=== PATIENT | male | born 1950 | race Caucasian/White ===

== ENCOUNTER 2019-06-23 14:15 | Inpatient (IN) | payer OTHER, SELFPAY ==
[2019-06-08 10:04] VITALS: BMI 42.1
[2019-06-22] VITALS (16 sets, daily range): BP systolic 102–142; BP diastolic 40–85; PULSE 66–80; RESP 12–20; TEMP 35.8–36.8; O2SAT 93–100; BMI 42.0
--- NOTE | 2019-06-22 06:00 | DI.RAD.S_ITS ---
PROCEDURE: XR KNEE RT 1TO2V INDICATIONS: post op films TECHNIQUE: 2 view(s) of the knee acquired. COMPARISON: None. FINDINGS: Bones: Patient is status post knee joint arthroplasty. Hardware components are in expected positions. Visualized bony structures are intact. Soft tissues: Overlying postoperative changes are noted. IMPRESSION: Normal alignment after total knee arthroplasty involving the right knee, no operative complications seen. Dictated by: Rehan Toussaint M.D. on 06/22/2019 at 15:10 Approved by: Rehan Toussaint M.D. on 06/22/2019 at 15:10
[2019-06-22] MEDS: LACTATED RINGERS 1,000 ML 42 ML IV ×2 (11:00→13:40)
[2019-06-22] MEDS: ACETAMINOPHEN 325 MG TABLET 975 MG PO ×3 (11:26→20:54)
[2019-06-22] MEDS: PREGABALIN 75 MG CAPSULE PO (11:27)
--- NOTE | 2019-06-22 11:53 | PM.PREOP ---
Pre-operative Note Interval Note History & Physical reviewed/Exam performed by Physician: Yes Changes to H&P: No
[2019-06-22] MEDS: CEFAZOLIN 2 GM/100 ML FROZ.PIGGY IV (12:34)
[2019-06-22] MEDS: TRANEXAMIC ACID 1,000 MG VIAL 1000 MG INJ ×2 (13:04→13:58)
--- NOTE | 2019-06-22 13:06 | SUR.OPER ---
Supine on padded OR bed. Head on gel doughnut, arms secured on padded armboards <90 degree abduction. Safety belt across torso. Non-operative leg secured with tape over blanket over lower leg. Operative leg secured in DeMayo positioner. Foam padded brace at thigh of operative leg.
[2019-06-22] MEDS: BUPIVACAINE 0.25% W/ EPI 30 ML VIAL 60 ML INJ (13:12)
[2019-06-22] MEDS: BUPIVACAINE LIPOSOME 266 MG/20 ML VIAL INJ (13:12)
[2019-06-22] MEDS: MORPHINE 4 MG/ML INJ INJ (13:13)
--- NOTE | 2019-06-22 14:28 | P.OP_ITS ---
Operative Date/Time/Diagnoses Date of procedure: 06/22/19 Time of procedure: 14:15 Pre-op diagnosis: Right knee osteoarthritis Post-op diagnosis: same Procedure & Clinicians Procedure: Right total knee replacement Same procedure as scheduled: Yes Indications: The patient has had progressively worsening right knee pain with radiographic changes consistent with arthritis. Non-operative management has failed and the patient has requested total knee replacement. The risks, benefits and alternatives to surgery were discussed with the patient prior to proceeding. Risks discussed included, but were not limited to, failure to relieve pain, stiffness, infection, nerve damage, deep venous thrombosis, pulmonary embolism, stroke, coma, heart attack, permanent paralysis and , as well as the potential need for eventual revision of the prosthetic. Surgeon: Jose F Siu Chamber Magistrate: Kate Chapin Click Yes if Unassisted: No Anesthesia Type: Spinal, Sedation and Local Operative Notes Findings: Moderate patellofemoral osteoarthritis with mild medial and lateral osteoarthritis. Closure Type: primary Specimen(s): none sent Prosthetic devices, grafts, tissues, transplants, or devices: Implants used in this procedure were manufactured by the [employer] and [employer] and included the BCS II Journey total knee replacement with a size 5 right Oxinium femur, a size 4 right non porous tibial base plate, a 9 mm cross-linked polyethylene tibial insert and a 32 mm oval Stephanie II patella. Applied: implant(s) Estimated Blood Loss (mL): 25 Blood products transfused: none Tourniquet time (min): 53 Procedure in detail: The patient was seen in the pre-operative area, where the patient identified the right knee as the operative site and this was marked with my initials. The patient received pre-operative antibiotics, and was taken to the operating room and placed on the operative table in the supine position. After satisfactory anesthesia, a multimedia services manager out was performed. The right leg was encircled with a tourniquet about the proximal thigh, and the leg was prepared from the toes to the tourniquet with ChloroPrep in the usual fashion and draped through sterile drapes. The leg was elevated and exsanguinated with Eschmark bandage and the tourniquet inflated to 250 mmHg pressure. The knee was approached through an approximately 18 cm incision centered over the patella and carried into the knee through a medial parapatellar arthrotomy. The anterior osteophytes and soft tissues were removed. The rotational landmarks of Kimball's line and the transepicondylar axis were marked on the femur with electrocautery, and intramedullary guide holes for the femur and tibia were created. The distal femoral cut was made in 6 degrees of valgus using the intramedullary guide at the primary cut setting. The proximal tibial cut was then made using the intramedullary guide, taking 9 mm of bone off the less involved side. The extension gap was checked and the rotation of the femoral component confirmed with the gap balancing system. The anterior, posterior and chamfer cuts were then made. The posterior osteophytes and soft tissues were then removed. The posterior capsule was injected with part of a mixture of 60 ml 0.25% Marcaine mixed with 20 ml Exparel and 4 mg of morphine for post-operative pain control. The remainder of this mixture was injected into the capsule and subcutaneous tissues during cement curing. The tibia was prepared with the rotation set by an extra medullary guide. Trial tibial and femoral components were then placed and the intercondylar notch cut through the femoral trial. Range of motion was 0-135 degrees, with good stability throughout the range. The patella was then cut to accommodate the patellar prosthetic. There was no need for a lateral release. The trials were then removed, and the femoral hole plugged with a bone plug. The bone was prepared with pulsatile lavage, and dried with a sponge. Cement was applied and the final prosthetics placed. Excess cement was removed during and after cement curing. After confirming there was no extruded cement posteriorly, the final tibial insert was placed. The knee was copiously irrigated and the tourniquet deflated. Hemostasis was obtained. The capsule was closed with interrupted # 2 polyester suture. The subcutaneous layer was closed with 3-0 Vicryl, and the skin with a running 3-0 V-Lock suture and SteriStrips. An Aquacel Ag dressing was applied and the patient was taken to recovery having tolerated the procedure well. Complications: none Post-operative Condition: stable Disposition: PACU Plan for aftercare: The patient will be maintained on a standard total knee replacement protocol with weight bearing as tolerated. The patient will receive aspirin and sequential compression devices for DVT prophylaxis. The patient will be discharged home when safe for the home environment.
[2019-06-22] MEDS: HYDROMORPHONE 2 MG INJ IV (14:55)
[2019-06-22] MEDS: OXYCODONE IR 5 MG TABLET PO (15:17)
--- NOTE | 2019-06-22 15:55 | SUR.PHASEI ---
Pt transferred to room 221 via bed with all belongings. Last vital signs stable and pain to tolerable level per pt at 3/10 in mid/upper back; see vitals flowsheet for details. Report given to LORI Ray prior to transfer. Flor at bedside upon arrival to room 221; handoff assessment completed. Flor to assume care of pt at this time.
[2019-06-22] MEDS: hydrOXYzine pamoate 25 MG CAPSULE PO (16:39)
[2019-06-22] MEDS: OXYCODONE IR 10 MG TABLET PO ×2 (16:39→19:58)
[2019-06-22] MEDS: LACTATED RINGERS 1,000 ML 125 ML IV (16:40)
--- NOTE | 2019-06-22 19:01 | PC.NURSE ---
Addendum entered by Gladis Peña R.N. 06/22/19 22:11: Pt having pain control issues throughout evening. Med w/ Dilaudid 0.5IVP x 3 in between Oxycodone and vistaril as per orders. Pt states it is now beginning to get some relief. Dsg to right lower leg CDI. Call light w/in reach, bed alarm on for pt safety. Continue w/plan of care. Original Note: Pt arrived from PACu @ 1555 Alert/oriented. SpO2 98% RA Med w/oxycodone @ 1650 w/good relief. Right knee dsg (Felton wrap/aquacell) CDI Stable post op course. Call light w/in reach, bed alrm on for pt safety.
[2019-06-22] MEDS: HYDROMORPHONE 0.5 MG INJ IV ×3 (19:25→22:03)
[2019-06-22] MEDS: ASPIRIN EC 81 MG TABLET PO (20:55)
[2019-06-23] MEDS: OXYCODONE IR 10 MG TABLET PO ×5 (00:28→22:41)
[2019-06-23] MEDS: hydrOXYzine pamoate 25 MG CAPSULE PO ×4 (00:29→21:38)
[2019-06-23] MEDS: HYDROMORPHONE 0.5 MG INJ IV ×4 (00:29→15:30)
[2019-06-23] MEDS: LACTATED RINGERS 1,000 ML 125 ML IV (00:33)
--- NOTE | 2019-06-23 02:24 | PC.NURSE ---
Dr. Salazar notified at 0140 of pain level maintaining 7-10/10 on the numeric pain scale. Patient is stiff, restless and irritable. See MAR for pain medication administration. Orders received to give Toradol 30mg every six hours PRN.
[2019-06-23] MEDS: KETOROLAC 30 MG/ML VIAL IV ×3 (02:41→22:00)
[2019-06-23 06:16] LABS: Hematocrit 29.8 % (41-53); Hemoglobin 10.3 g/dL (13.5-17.5)
[2019-06-23 06:50] VITALS: BP 126/69; PULSE 75; RESP 16; TEMP 37.1; O2SAT 97
--- NOTE | 2019-06-23 07:34 | PM.PNPO.1 ---
Subjective Subjective Date Patient Seen: 06/23/19 Time Patient Seen: 07:34 Interval history: Patient reports he had significant pain control issues yesterday evening but these are now under control. Exam Vital Signs (past 8 hours): - 06/23/19 06:50 Temperature 98.7 F Pulse Rate 75 Respiratory Rate 16 Blood Pressure 126/69 Pulse Oximetry 97 Oxygen Delivery Method Room Air Oxygen Flow Rate 0 Narrative Exam Narrative: Right knee wound is dressed with no drainage on the bandage. Calf is soft. Light touch and motion are intact. Objective Labs Result Diagrams: 06/23/19 05:55 Labs: Laboratory Results - last 24 hr 06/23/19 05:55 Hgb 10.3 L Hct 29.8 L Assessment & Plan Post-op Postoperative Procedures: Procedures Operation Date: 06/22/19 12:45 Actual Procedures Side Surgeon p *OPB* Total Knee Arthroplasty Right Jose F Siu MD Postoperative day: 1 Postoperative status: doing well, marginal pain control and anemia Postoperative status narrative: The patient is stable postoperative day 1 after total knee replacement on the right. He had poor pain control yesterday but this seems to have improved. He did not have any physical therapy yesterday. He has a post hemorrhagic anemia. Postoperative plan: routine post-op care and ambulate Postoperative plan narrative: We will initiate physical therapy for the patient. He lives in a recreational vehicle and will need to be able to negotiate narrow hallways and a steep flight of stairs to get into the vehicle. It is unlikely he will be able to achieve these goals today in physical therapy. We will admit him and he will be discharged tomorrow or the next day depending on progress in physical therapy. Time Spent With Patient Time with patient: less than 15 minutes
[2019-06-23 08:15] VITALS: BP 124/63; PULSE 77; RESP 16; TEMP 37.2; O2SAT 97
[2019-06-23] MEDS: ACETAMINOPHEN 325 MG TABLET 975 MG PO ×3 (08:46→21:37)
[2019-06-23] MEDS: ATORVASTATIN 20 MG TABLET 40 MG PO (08:48)
[2019-06-23] MEDS: METFORMIN HCL 500 MG TABLET PO (08:48)
[2019-06-23 08:49] VITALS: BP 126/69; PULSE 75
[2019-06-23] MEDS: LISINOPRIL 20 MG TABLET PO (08:49)
[2019-06-23] MEDS: ALLOPURINOL 100 MG TABLET PO (08:49)
[2019-06-23] MEDS: hydroCHLOROthiazide 25 MG TABLET PO (08:50)
[2019-06-23] MEDS: ATENOLOL 50 MG TABLET PO (08:51)
[2019-06-23] MEDS: DOCUSATE 100 MG CAPSULE PO ×2 (08:51→21:39)
[2019-06-23] MEDS: ASPIRIN EC 81 MG TABLET PO ×2 (08:51→21:38)
--- NOTE | 2019-06-23 10:49 | CM.DANOTE ---
Addendum entered by Belkis Bhatt 06/23/19 14:40: Received notification from therapy that current recommendation is SNF. Therapy aware that it is highly unlikely that [facility] will approve for SNF on elective orthopedic surgery. Met with patient again today and he is aware. He reports feeling better this afternoon and capable of doing more with mobility. Notified patient that CM team would reassess tomorrow 06-24 after patient seen by therapy. Patient agreeable and reports that he would be unable to pay privately for room/board at SNF. Patient is open to HH if Orthopedics agreeable. P: CM team to reassess for d/c planning disposition on 06-24-19. Hopeful patient can return home with HH vs. outpatient therapy. LINETTE Betancourt Original Note: DCP/Assessment: Reviewed chart. Patient is a 68yr old male admitted to [facility] for right TKA performed on 06-22-[address] Siu. PCP is Dr. Huffman. Primary payor is [facility]. Met with patient explained CM/SW role. Patient alert and oriented during visit. Patient reports that he resides in RV with spouse. Patient reports having significant pain issues today. RN aware. Patient has 5 stairs to enter RV. Therapy evaluation currently pending. Patient does have outpatient therapy arranged through Physical Therapy. Patient plans to go 1x per week due to cost. Apparently, patient's out of pocket cost for outpatient therapy is $45.00. Patient does not anticipate any d/c planning needs. Patient has had several Orthopedic surgeries in the past and feels that he understands what is expected. P: Anticipate home when medically stable. CM team to continue to follow. LINETTE Betancourt Discharge Planning/Care Management CM Discharge Assessment Start: 06/23/19 10:46 Freq: Status: Active Protocol: Document 06/23/19 10:46 KJS (Rec: 06/23/19 10:49 KJS [id number]) Discharge Planning Assessment Assigned Mold Puller LINETTE Betancourt Contact Information Lon Jovel (spouse) Advance Directives? No Advance Directives on File No History Provided By Patient,Medical Record Prior Living Arrangements RV Household Members spouse Type of transporation used prior to Drives own vehicle admit Independent with ADL's Therapy evaluation pending Is patient alert and oriented? Yes Caregiver for Another No DME Already Rented / Owned FWW / Walker Patient/Family Preference OP PT Therapy Barriers to Discharge No Discharge Plan Home Transportation Arrangement [facility] to provide transport. Whiteboard Updated in Patient Room with Yes name and ext. # of Mold Puller Review Status In Process Next Review Type Continued Stay Review Pre-Anesthesia Assessment Start: 06/08/19 10:04 Freq: Status: Active Protocol: Document 06/08/19 10:04 CAB (Rec: 06/08/19 10:38 CAB [id number]) Pre-Anesthesia Assessment PAC Comment Creatinine 1.96, eGFR 34 on pre-op labs. Prior labs scanned to record for review. PCP aware of labs, has cleared pt for surgery Preferred Name Nandini Patient Information Reviewed Via Phone Assessment Assessment Completed With Patient Diagnostic Results BMP/CMP,CBC,EKG,Urinalysis Comment Outside EKG/labs scanned to record Primary Care Provider Donnie Huffman Medical Clearance Received Yes Seen Specialist in Last 12 Months Yes Specialist Seen Opthamologist/Columnist, Orthopedist Comment PCP aware of pre-op labs, clearance visit scanned to record Primary Language Luxembourgish Ad Trafficker Required No Height 172.72 cm Weight 125.645 kg Body Mass Index (BMI) 42.1 Hearing Ability Normal Visual Assist Glasses Dentition Type Teeth, Natural Present,Partial - Upper Barriers to Learning None Other Aids No Hx Anesthesia Reactions No Hx Family Anesthesia Reaction No Hx Malignant Hyperthermia No Hx Blood Transfusions No Anesthesia Review Requested No alcohol intake current alcohol intake frequency holidays/special occasions only Smoking Status Former smoker how long ago did patient quit smoking Quit 2009 Substance Use Type does not use Pain Present Pain Reported Musculoskeletal Symptoms Abnormal Gait,Back Pain, Difficulty Walking,Joint Pain, Muscle Cramps,Numbness, Radiating Pain into Limb History of Falling (Recent or History of No ) Patient is completely paralyzed or No completely immobile Prosthesis or Orthotic Device Cane Mental Status Oriented to own ability Is patient on oxygen? No Does patient have AMEZQUITA/SOB No Hx Sleep Apnea No Currently Taking a Beta Yesi Yes: Atenolol Can You Climb a Flight of Stairs Without Yes SOB Hx Chest Pain No Hx SOB No Hx Syncope or Dizziness No Anti-Coagulant Therapy No Has a Explosives Operator No Cardiac Testing No Hx Pacemaker/ICD No Pacemaker Rep Required? No Diet Type At Home Regular,Low Carb dysphagia No Genitourinary Symptoms Dribbling, Post-void Bladder Pattern Frequency,Nocturia,Urgency Urinary Catheter Present No Hx Urinary Self Catheterization No Diabetes No: Takes metformin for weight loss per pt HgbA1C 5.5 Date 06/10/19 Hx Drug Resistant Organism No Presence of External or Internal Medical Yes: Lumbar hardware, left eye Devices lens Have you traveled outside the [facility] in the last 30 days? Marital Status Lives With spouse Prior Living Arrangements RV Support System Spouse Does the Patient Have Assistance After Yes Surgery Patient Discharge Plan Description Return Home Comment Pt not advised on length of stay per surgeon Feels Safe in Current Environment Yes Been Physically Hurt or Threatened By a No Person in Current Environment Do you have thoughts of harming yourself None or others? Are you currently considering suicide? No Do you have a plan to hurt yourself or No Plan others? Do You Have Any Spiritual Beliefs That No May Affect Your HC Choices? Do You Have Any Cultural Practices That No May Affect Your HC Choices? Who Can We Speak to About Patient's Care Family, friends Identifying Code for Release of Patient Declines to issue Information Health Care Proxy/Next of Kin [place] () Health Care Proxy Emergency Contact Name Angeles () Emergency Contact Advance Directives? Yes Advance Directives on File No Requested Patient Bring Advanced Yes Directives DOS Power of Tube Worker No PAC Instructions Durable medical equipment, Medications to take/avoid, Nasal antibiotic,No ETOH/ petroleum product on skin DOS, NPO,Pre-surgical wash,Sturdy shoes/comfortable clothes,Do not bring valuables and remove jewelry
--- NOTE | 2019-06-23 12:00 | PT.IIE ---
Current Diagnoses Other chondrocalcinosis, unspecified site (06/23/19) Unilateral primary osteoarthritis, right knee (06/23/19) Surgery Performed Operation Date: 06/22/19 12:45 Actual Procedures p *OPB* Total Knee Arthroplasty(Right) - Jose F Siu MD Surgical History (Last Updated 06/08/19 @ 10:24 by Jodi Moran RN) Hx of arthroscopy of left knee (Acute) Hx of arthroscopy of right knee (Acute ~2006) Hx of hernia repair (Acute) Hx of knee surgery (Acute ~1968) Hx of laminectomy (Acute ~2007) Hx of laminectomy (Acute ~2012) Hx of prostatectomy (Acute ~2014) Hx of tonsillectomy (Acute) S/P lumbar fusion (Acute ~2009) Status post extracapsular cataract extraction of left eye (Acute) Medical History (Last Updated 06/17/19 @ 12:17 by Jodi Moran RN) Asthma (Acute) Depression (Acute ~2007) Former smoker (Acute) Gout (Acute) HLD (hyperlipidemia) (Acute) HTN (hypertension) (Acute) Numbness (Acute) Prostate cancer (Acute ~2014) Stage III chronic kidney disease (Acute) Physical Therapy Inpatient Evaluation/Re-Eval M1 PT/OT-IP Prior Functional Status Start: 06/23/19 10:34 Freq: NEEDED Status: Active Protocol: Document 06/23/19 12:23 AW (Rec: 06/23/19 12:51 AW [id number]) Medical Review Prior Functional Status Medical History Reviewed Yes Diet/Fluid Consistency Regular Communication WNL Mobility and Gait Before January, pt was independent without need for assistive device. Since that time, pt ambulated household distances with no assistive device, but relied on a SPC for short community distances. He was limited in distance due to knee pain and back pain . Activities of Daily Living and IADL's Independent Prior Functional Level (Other details) No falls in the past two years . Social History Household Members spouse Living Arrangements RV Number of Floors (Floors) One Floor Number of Stairs To Enter/Railing? 5 ARTEMIO with bilateral rails. Stairs are 16 deep, 2.5' wide , and standard height. Home Environment Standard Height Toilet,Walk in Shower Home Equipment Straight Cane,Raised Toilet Seat Without Armrests Employment Status Retired Additional Social History Comment Pt states his RV hallways are too narrow for a walker. He has trialed his own hemiwalker in the halls and found that it fit everywhere he needed to go. He is accustomed to sleeping in a recliner M2 PT-IP Current Condition Start: 06/23/19 10:34 Freq: NEEDED Status: Active Protocol: Document 06/23/19 12:23 AW (Rec: 06/23/19 12:51 AW [id number]) Physical Therapy Current Condition Current Condition Evaluation Date 06/23/19 Treatment Diagnosis R TKA, impaired mobility Onset Date 06/22/19 Weight Bearing Status Weight Bearing Status Weight Bear as Tolerated M3 PT-IP Subjective Start: 06/23/19 10:34 Freq: NEEDED Status: Active Protocol: Document 06/24/19 10:30 HH (Rec: 06/24/19 11:41 HH [id number]) Subjective Physical Therapy Visit Type Type Treatment Note Visit Start Time 10:30 Visit Stop Time 10:52 Total Visit Minutes 22 Number of SLOT FLOOR ATTENDANT Visits 0 Physical Therapy Visit Comments Patient Comments I feel better today with less pain. I want to try walking. Therapy Pain Assessment Pain When Pain Assessed During Mobility Location lower back Intensity 5 Scale Used Numeric (1 - 10) Description Sharp r knee Intensity 3 Scale Used Numeric (1 - 10) Pain Behaviors Facial Grimacing,Holding Area, Wincing Pain Management Techniques Apply Cold,Re-positioning, Timing of Activity with Medications M4 PT-IP Mobility and Gait Start: 06/23/19 10:34 Freq: NEEDED Status: Active Protocol: Document 06/24/19 10:30 HH (Rec: 06/24/19 11:41 [id number]) PT-Bed Mobility Assessment Supine to Sit Supine to Sit Moderate Assistance,1 Person Assistance,Head of Bed Elevated,Bedrails Scooting Scooting to Edge of Bed Contact Guard Assistance PT-Transfer Assessment Sit to and From Stand Sit to and from Stand Minimal Assistance,1 Person Assistance,Use of Upper Extremities Equipment Transfer Assistive Device Gait Belt,Front Wheeled Walker Transfers Transfer Destination Bed,Chair Transfer Technique pt ambulated with FWW Transfer Ability Level of Assist Contact Guard Assistance Comments Mobility Comments Pt cont verbalized sharp pain with AROM/AAROM of R Knee ( only able to reach 70 degrees) . He cont needed increased time for supine to sit by using L ankle to unweight his RLE. Pt did need ADOBE CQ DEVELOPER from PT to get to edge of bed. He stood up with min A and FWW with a staggered stance position. Pt primarily WB through his UEs and LLE, increased pain noticed with weight shift to R side. Pt did sit <> stand x 3times and stand step pivot transfer with walk in total but they all needed min A due to his pain and poor LLE strength. Gait Assessment Gait Gait Assistance Required: Contact Guard Assist Distance (Feet) 12 Able to Maintain Weight Bearing Status Yes During Gait Assistive Devices Assistive Device Gait Belt,Front Wheeled Walker Gait Deviations General Gait Pattern Antalgic,Decreased Stride Length,Decreased Feet Clearance,Step-to Gait Factors Limiting Gait Function Factors Limiting Gait Function Decreased Activity Tolerance, Decreased Strength,Limited Range of Motion,Pain Comments Gait Comments Pt amb with a step to gait from bed to hallway with w/c follow. Pt primarily WB through UEs and LLE due to increased pain in R knee. Pt had to sit in w/c for rest after 10 feet for 5 mins. He was then w/c back to side of his chair and did stnad step pivot transfer. Pt reports his L knee is weak, along with his chronic LBP that limits his activity tolerance and mobility. Stair Climbing Assessment Comments Stair Climbing Comments Not assessed today. I cant do it now for sure. PT-Balance Assessment Sitting Balance and Reactions Static Sitting Balance Ability Good Dynamic Sitting Balance Ability Good Standing Balance and Reactions Static Standing Balance Ability Fair Dynamic Standing Balance Ability Fair Device Used FWW M5 PT-IP Objective Assessments Start: 06/23/19 10:34 Freq: NEEDED Status: Active Protocol: Document 06/23/19 12:23 AW (Rec: 06/23/19 12:51 AW [id number]) Orientation Orientation/Cognition Level of Alertness Alert Orientation Name,Day of Week,Place, Situation Language Function Ability No Deficits Noted Safety Awareness Understands Safety Issues Memory Description No Deficits Noted Gross Range of Motion Upper Extremity ROM Assessment Within Functional Limits Lower Extremity ROM Assessment Right Impaired Strength Upper Extremity Strength Assessment Within Functional Limits Lower Extremity Strength Assessment Right Impaired Comments Strength Comments BUE and LLE 4+/5 grossly Sensation Assessment Sensation Gross Sensation WNL M6 PT-IP Treatment Start: 06/23/19 10:34 Freq: NEEDED Status: Active Protocol: Document 06/23/19 12:25 LYN (Rec: 11/26/19 14:47 LYN [id number]) Physical Therapy Treatment Exercises Exercises Ankle Pumps,Quad Sets,Seated Knee Flexion/Extension Education Education Provided Post-Op Packet,Safety Other Treatments Other Treatment Performed Review post- op ex, knee flexion ROM to improve gait quality. M7 PT-IP Assessment and Plan Start: 06/23/19 10:34 Freq: NEEDED Status: Active Protocol: Document 06/24/19 10:30 HH (Rec: 06/24/19 11:41 HH [id number]) PT Summary Assessment and Plan Potential Rehabilitation Potential Good Status of Condition at Evaluation Evolving Summary Impairments Pain,ROM,Strength,Bed Mobility ,Transfers,Gait,Activity Tolerance Assessment Summary Pt did not show improvements today who stated he is primarily limited by his chronic LBP and B knee pain. Pt was able to amb ~12 feet with w/c follow. Pt reports he is not ready to go home, especially he has 5 steps to negotiate into RV and narrow hallway/bathroom. Communicated with SW regarding pt's current condition and limitation for home environment and spouse's limited assistance which creates significant fall risks for further injury. cont recommend SNF as an ideal option to improve his mobility and strength. Goals Bed Mobility Goal Standby Assistance Transfer Goal Standby Assistance,Front Wheeled Walker Gait Goal Standby Assistance,Simone Walker Gait Distance 75 Other Goals up/down 5 steps with bilateral rails SBA. Days to Meet Goals 5 Frequency of Treatment Frequency Of Treatment Twice a Day Treatment Plan Physical Therapy Treatment Plan Bed Mobility Training,Transfer Training,Gait Training, Therapeutic Exercise,Balance Retraining,Post Op Education, Discharge Planning,Hot or Cold Pack,Neuromuscular Re-ed, Coordination Retraining,Manual Therapy Other Recommendations and Next Treatment Review exercises, progress Focus gait distance, trial stairs. Coordinate timing of treatment with pain meds. Recommendations To Nursing Amount of Assist Needed 1 Person Assist,2 Person Assist Discharge Recommendations PT Discharge Recommendations Home with Assistance,Home Health,SNF Rehab Other Discharge Recommendations SNF vs home with assist and Equipment Needed for Home Before raised toilet seat Discharge
--- NOTE | 2019-06-23 12:00 | PT.IIE ---
Current Diagnoses Other chondrocalcinosis, unspecified site (06/23/19) Unilateral primary osteoarthritis, right knee (06/23/19) Surgery Performed Operation Date: 06/22/19 12:45 Actual Procedures p *OPB* Total Knee Arthroplasty(Right) - Jose F Siu MD Surgical History (Last Updated 06/08/19 @ 10:24 by Jodi Moran RN) Hx of arthroscopy of left knee (Acute) Hx of arthroscopy of right knee (Acute ~2006) Hx of hernia repair (Acute) Hx of knee surgery (Acute ~1968) Hx of laminectomy (Acute ~2007) Hx of laminectomy (Acute ~2012) Hx of prostatectomy (Acute ~2014) Hx of tonsillectomy (Acute) S/P lumbar fusion (Acute ~2009) Status post extracapsular cataract extraction of left eye (Acute) Medical History (Last Updated 06/17/19 @ 12:17 by Joid Moran RN) Asthma (Acute) Depression (Acute ~2007) Former smoker (Acute) Gout (Acute) HLD (hyperlipidemia) (Acute) HTN (hypertension) (Acute) Numbness (Acute) Prostate cancer (Acute ~2014) Stage III chronic kidney disease (Acute) Physical Therapy Inpatient Evaluation/Re-Eval M1 PT/OT-IP Prior Functional Status Start: 06/23/19 10:34 Freq: NEEDED Status: Active Protocol: Document 06/24/19 12:09 AW (Rec: 06/23/19 12:51 AW [id number]) Medical Review Prior Functional Status Medical History Reviewed Yes Diet/Fluid Consistency Regular Communication WNL Mobility and Gait Before January, pt was independent without need for assistive device. Since that time, pt ambulated household distances with no assistive device, but relied on a SPC for short community distances. He was limited in distance due to knee pain and back pain . Activities of Daily Living and IADL's Independent Prior Functional Level (Other details) No falls in the past two years . Social History Household Members spouse Living Arrangements RV Number of Floors (Floors) One Floor Number of Stairs To Enter/Railing? 5 ARTEMIO with bilateral rails. Stairs are 16 deep, 2.5' wide , and standard height. Home Environment Standard Height Toilet,Walk in Shower Home Equipment Straight Cane,Raised Toilet Seat Without Armrests Employment Status Retired Additional Social History Comment Pt states his RV hallways are too narrow for a walker. He has trialed his own hemiwalker in the halls and found that it fit everywhere he needed to go. He is accustomed to sleeping in a recliner M2 PT-IP Current Condition Start: 06/23/19 10:34 Freq: NEEDED Status: Active Protocol: Document 06/24/19 12:09 AW (Rec: 06/23/19 12:51 AW [id number]) Physical Therapy Current Condition Current Condition Evaluation Date 06/23/19 Treatment Diagnosis R TKA, impaired mobility Onset Date 06/22/19 Weight Bearing Status Weight Bearing Status Weight Bear as Tolerated M3 PT-IP Subjective Start: 06/23/19 10:34 Freq: NEEDED Status: Active Protocol: Document 06/24/19 12:09 AW (Rec: 06/23/19 12:51 AW [id number]) Subjective Physical Therapy Visit Type Type Initial Evaluation Visit Start Time 11:32 Visit Stop Time 12:12 Total Visit Minutes 40 Number of SERVICE ENGINE REPAIRER Visits 0 Physical Therapy Visit Comments Patient Comments Pt has highly irritable pain symptoms but is willing to attempt mobility with PT Patient Goals Pt hopes to go home at discharge Therapy Pain Assessment Pain When Pain Assessed During Mobility Pain Present Pain Present Pain Reported Location r knee Intensity 8 Scale Used 1/10 at rest; 8/10 with all mobility Pain Behaviors Facial Grimacing,Guarding, Moaning,Wincing Pain Management Techniques Apply Cold,Re-positioning, Timing of Activity with Medications M4 PT-IP Mobility and Gait Start: 06/23/19 10:34 Freq: NEEDED Status: Active Protocol: Document 06/24/19 12:09 AW (Rec: 06/23/19 12:51 AW [id number]) PT-Bed Mobility Assessment Supine to Sit Supine to Sit Moderate Assistance,1 Person Assistance,Head of Bed Elevated,Bedrails Scooting Scooting to Edge of Bed Minimal Assistance PT-Transfer Assessment Sit to and From Stand Sit to and from Stand Moderate Assistance,1 Person Assistance,Use of Upper Extremities Equipment Transfer Assistive Device Gait Belt,Front Wheeled Walker Transfers Transfer Destination Chair Transfer Technique pt ambulated with FWW Transfer Ability Level of Assist Contact Guard Assistance Comments Mobility Comments Pt reports increase in pain from 1/10 at rest to 8/10 with bed mobility. He was able to swing both legs to EOB and experienced spasm of right distal quadriceps with knee flexion. Pt was able to rest in reclined position long enough for spasm to calm down. He required mod assist and increased time to achieve seated position EOB. Pt completed sit to stand with mod assist and cues for sequencing. Transfer to chair required CGA with pt demonstrating poor eccentric control. Gait Assessment Gait Gait Assistance Required: Contact Guard Assist Distance (Feet) 3 Able to Maintain Weight Bearing Status Yes During Gait Assistive Devices Assistive Device Gait Belt,Front Wheeled Walker Gait Deviations General Gait Pattern Antalgic,Decreased Stride Length,Decreased Feet Clearance,Step-to Gait Factors Limiting Gait Function Factors Limiting Gait Function Decreased Activity Tolerance, Decreased Strength,Limited Range of Motion,Pain Comments Gait Comments Pt ambulated 3 feet from bed to chair with FWW CGA. Gait was notable for severely limited step length and foot clearance. Stair Climbing Assessment Comments Stair Climbing Comments Not assessed. PT-Balance Assessment Sitting Balance and Reactions Static Sitting Balance Ability Good Dynamic Sitting Balance Ability Good Standing Balance and Reactions Static Standing Balance Ability Fair Dynamic Standing Balance Ability Fair Device Used FWW M5 PT-IP Objective Assessments Start: 06/23/19 10:34 Freq: NEEDED Status: Active Protocol: Document 06/24/19 12:09 AW (Rec: 06/23/19 12:51 AW [id number]) Orientation Orientation/Cognition Level of Alertness Alert Orientation Name,Day of Week,Place, Situation Language Function Ability No Deficits Noted Safety Awareness Understands Safety Issues Memory Description No Deficits Noted Gross Range of Motion Upper Extremity ROM Assessment Within Functional Limits Lower Extremity ROM Assessment Right Impaired Strength Upper Extremity Strength Assessment Within Functional Limits Lower Extremity Strength Assessment Right Impaired Comments Strength Comments BUE and LLE 4+/5 grossly Sensation Assessment Sensation Gross Sensation WNL M6 PT-IP Treatment Start: 06/23/19 10:34 Freq: NEEDED Status: Active Protocol: Document 06/24/19 12:09 AW (Rec: 06/23/19 12:51 AW [id number]) Physical Therapy Treatment Exercises Exercises Ankle Pumps,Quad Sets,Heel Slides,Passive Knee Extension Hang Education Education Provided Precautions,Weight Bearing Status,Post-Op Packet,Safety Other Treatments Other Treatment Performed Pt unable to flex knee >10 degrees due to pain. Reviewed PT plan of care, post-op exercises, weightbearing status, and safe use of FWW. M7 PT-IP Assessment and Plan Start: 06/23/19 10:34 Freq: NEEDED Status: Active Protocol: Document 06/24/19 12:09 AW (Rec: 06/23/19 12:51 AW [id number]) PT Summary Assessment and Plan Potential Rehabilitation Potential Good Status of Condition at Evaluation Evolving Summary Impairments Pain,ROM,Strength,Bed Mobility ,Transfers,Gait,Activity Tolerance Assessment Summary Pt is a 68 yo man seen for PT evaluation on POD1 following R TKA. PLOF: Pt was independent in all regards prior to January 2019. Since then, he has used a single point cane for short distance community mobility. CLOF: Pt required mod assist for bed mobility with HOB elevated and sit to stand. He does not sleep in a bed at home. Ambulation of 3 feet and transfer to chair required CGA and increased time. Pt exhibits greatly increased pain with all mobility and poor activity tolerance. Will continue to assess, but at this time PT recommends consideration of SNF for short term rehab stay before return to home. He is unable to use a FWW at home due to narrow hallways, so will need to use a hemiwalker or similar unilateral device. He is unsafe to use a hemiwalker at this time. In addition, pt's is limited by poor shoulder range of motion and back pain; she is unable to provide meaningful physical assist. Goals Bed Mobility Goal Standby Assistance Transfer Goal Standby Assistance,Front Wheeled Walker Gait Goal Standby Assistance,Simone Walker Gait Distance 75 Other Goals up/down 5 steps with bilateral rails SBA. Days to Meet Goals 5 Frequency of Treatment Frequency Of Treatment Twice a Day Treatment Plan Physical Therapy Treatment Plan Bed Mobility Training,Transfer Training,Gait Training, Therapeutic Exercise,Balance Retraining,Post Op Education, Discharge Planning,Hot or Cold Pack,Neuromuscular Re-ed, Coordination Retraining,Manual Therapy Other Recommendations and Next Treatment Review exercises, progress Focus gait distance, trial stairs. Coordianate timing of treatment with pain meds Recommendations To Nursing Amount of Assist Needed 1 Person Assist,2 Person Assist Discharge Recommendations PT Discharge Recommendations Home with Assistance,Home Health,SNF Rehab Other Discharge Recommendations SNF vs home with assist and HH Time incorrect due to note pulled over incorrectly.
--- NOTE | 2019-06-23 12:43 | PT.IPTN ---
Current Diagnoses Other chondrocalcinosis, unspecified site (06/22/19) Unilateral primary osteoarthritis, right knee (06/22/19) Surgery Performed Operation Date: 06/22/19 12:45 Actual Procedures p *OPB* Total Knee Arthroplasty(Right) - Jose F Siu MD Physical Therapy Treatment Note M2 PT-IP Current Condition Start: 06/23/19 10:34 Freq: NEEDED Status: Active Protocol: Document 06/23/19 12:23 AW (Rec: 06/23/19 12:51 AW [id number]) Physical Therapy Current Condition Current Condition Evaluation Date 06/23/19 Treatment Diagnosis R TKA, impaired mobility Onset Date 06/22/19 Weight Bearing Status Weight Bearing Status Weight Bear as Tolerated M3 PT-IP Subjective Start: 06/23/19 10:34 Freq: NEEDED Status: Active Protocol: Document 06/23/19 12:25 LYN (Rec: 06/23/19 14:47 LYN [email or web address]) Subjective Physical Therapy Visit Type Type Treatment Note Visit Start Time 12:25 Visit Stop Time 12:43 Total Visit Minutes 18 Notes Treatment supervised by LINDA Barkley. Number of GRITTING MACHINE OPERATOR Visits 1 Physical Therapy Visit Comments Patient Comments Pt is willing to work with therapy. Therapy Pain Assessment Pain When Pain Assessed During Mobility Pain Present Pain Present Pain Reported Location r knee Intensity 4 Scale Used Numeric (1 - 10) Pain Behaviors Facial Grimacing,Holding Area, Wincing Pain Management Techniques Apply Cold,Re-positioning, Timing of Activity with Medications M4 PT-IP Mobility and Gait Start: 06/23/19 10:34 Freq: NEEDED Status: Active Protocol: Document 06/23/19 12:25 LYN (Rec: 06/23/19 14:47 LYN [id number]) PT-Bed Mobility Assessment Sit to Supine Sit to Supine Minimal Assistance,1 Person Assistance Scooting Scooting to Edge of Bed Contact Guard Assistance PT-Transfer Assessment Sit to and From Stand Sit to and from Stand Minimal Assistance,1 Person Assistance,Use of Upper Extremities Equipment Transfer Assistive Device Gait Belt,Front Wheeled Walker Transfers Transfer Destination Bed Transfer Technique pt ambulated with FWW Transfer Ability Level of Assist Contact Guard Assistance Comments Mobility Comments Pt verbalized stabbing pain when performing AAROM of R knee. Able to tolerate ankle pumps and quad sets. Pt scooted to edge of chair CGA. Sit<>stand w/ FWW Min A x1. Stand<>sit required cues to reach back for bed and keep R LE straight. Instructed pt how to use gait belt to self assist R LE back into bed. Min A for LE assistance sit<>sup. Pt left in bed w/ all needs in reach. Gait Assessment Gait Gait Assistance Required: Contact Guard Assist Distance (Feet) 12 Able to Maintain Weight Bearing Status Yes During Gait Assistive Devices Assistive Device Gait Belt,Front Wheeled Walker Gait Deviations General Gait Pattern Antalgic,Decreased Stride Length,Decreased Feet Clearance,Step-to Gait Factors Limiting Gait Function Factors Limiting Gait Function Decreased Activity Tolerance, Decreased Strength,Limited Range of Motion,Pain Comments Gait Comments Pt was able to ambulate from chair to other side of bed with Min A and proper use of FWW. Encouraged pt to bend R knee and use heel to toe step sequencing. Pt had decreased ROM due to pain and inflammation. Stair Climbing Assessment Comments Stair Climbing Comments Not assessed today but complete future appt. PT-Balance Assessment Sitting Balance and Reactions Static Sitting Balance Ability Good Dynamic Sitting Balance Ability Good Standing Balance and Reactions Static Standing Balance Ability Fair Dynamic Standing Balance Ability Fair Device Used FWW M5 PT-IP Objective Assessments Start: 06/23/19 10:34 Freq: NEEDED Status: Active Protocol: Document 06/23/19 12:23 AW (Rec: 06/23/19 12:51 AW [id number]) Orientation Orientation/Cognition Level of Alertness Alert Orientation Name,Day of Week,Place, Situation Language Function Ability No Deficits Noted Safety Awareness Understands Safety Issues Memory Description No Deficits Noted Gross Range of Motion Upper Extremity ROM Assessment Within Functional Limits Lower Extremity ROM Assessment Right Impaired Strength Upper Extremity Strength Assessment Within Functional Limits Lower Extremity Strength Assessment Right Impaired Comments Strength Comments BUE and LLE 4+/5 grossly Sensation Assessment Sensation Gross Sensation WNL M6 PT-IP Treatment Start: 06/23/19 10:34 Freq: NEEDED Status: Active Protocol: Document 06/23/19 12:25 LYN (Rec: 06/23/19 14:47 LYN [email or web address]) Physical Therapy Treatment Exercises Exercises Ankle Pumps,Quad Sets,Seated Knee Flexion/Extension Education Education Provided Post-Op Packet,Safety Other Treatments Other Treatment Performed Review post- op ex, knee flexion ROM to improve gait quality. M7 PT-IP Assessment and Plan Start: 06/23/19 10:34 Freq: NEEDED Status: Active Protocol: Document 06/23/19 12:25 LYN (Rec: 06/23/19 14:47 LYN [email or web address]) PT Summary Assessment and Plan Potential Rehabilitation Potential Good Status of Condition at Evaluation Evolving Summary Impairments Pain,ROM,Strength,Bed Mobility ,Transfers,Gait,Activity Tolerance Assessment Summary Pt showed improvements with mobility and ambulation this afternoon. Verbalized pain during AAROM of R knee, but was able to tolerate ankle pumps, quad sets, and ambulating to other side of bed w/ FWW. Cues to reach back for surface and slowly lower down before sitting as well as R knee bend and heel to toe walking during ambulation. Ambulated ~12 ft w/ FWW and CGA. CGA for scooting, Min A for sit<>stand and sit<>supine . Goals Bed Mobility Goal Standby Assistance Transfer Goal Standby Assistance,Front Wheeled Walker Gait Goal Standby Assistance,Simone Walker Gait Distance 75 Other Goals up/down 5 steps with bilateral rails SBA. Days to Meet Goals 5 Frequency of Treatment Frequency Of Treatment Twice a Day Treatment Plan Physical Therapy Treatment Plan Bed Mobility Training,Transfer Training,Gait Training, Therapeutic Exercise,Balance Retraining,Post Op Education, Discharge Planning,Hot or Cold Pack,Neuromuscular Re-ed, Coordination Retraining,Manual Therapy Other Recommendations and Next Treatment Review exercises, progress Focus gait distance, trial stairs. Coordinate timing of treatment with pain meds. Recommendations To Nursing Amount of Assist Needed 1 Person Assist,2 Person Assist Discharge Recommendations PT Discharge Recommendations Home with Assistance,Home Health,SNF Rehab Other Discharge Recommendations SNF vs home with assist and
--- NOTE | 2019-06-23 12:51 | PT.IIE ---
Current Diagnoses Other chondrocalcinosis, unspecified site (06/22/19) Unilateral primary osteoarthritis, right knee (06/22/19) Surgery Performed Operation Date: 06/22/19 12:45 Actual Procedures p *OPB* Total Knee Arthroplasty(Right) - Jose F Siu MD Surgical History (Last Updated 06/08/19 @ 10:24 by Jodi Moran RN) Hx of arthroscopy of left knee (Acute) Hx of arthroscopy of right knee (Acute ~2006) Hx of hernia repair (Acute) Hx of knee surgery (Acute ~1968) Hx of laminectomy (Acute ~2007) Hx of laminectomy (Acute ~2012) Hx of prostatectomy (Acute ~2014) Hx of tonsillectomy (Acute) S/P lumbar fusion (Acute ~2009) Status post extracapsular cataract extraction of left eye (Acute) Medical History (Last Updated 06/17/19 @ 12:17 by Jodi Moran RN) Asthma (Acute) Depression (Acute ~2007) Former smoker (Acute) Gout (Acute) HLD (hyperlipidemia) (Acute) HTN (hypertension) (Acute) Numbness (Acute) Prostate cancer (Acute ~2014) Stage III chronic kidney disease (Acute) Physical Therapy Inpatient Evaluation/Re-Eval M1 PT/OT-IP Prior Functional Status Start: 06/23/19 10:34 Freq: NEEDED Status: Active Protocol: Document 06/23/19 12:23 AW (Rec: 06/23/19 12:51 AW [id number]) Medical Review Prior Functional Status Medical History Reviewed Yes Diet/Fluid Consistency Regular Communication WNL Mobility and Gait Before January, pt was independent without need for assistive device. Since that time, pt ambulated household distances with no assistive device, but relied on a SPC for short community distances. He was limited in distance due to knee pain and back pain . Activities of Daily Living and IADL's Independent Prior Functional Level (Other details) No falls in the past two years . Social History Household Members spouse Living Arrangements RV Number of Floors (Floors) One Floor Number of Stairs To Enter/Railing? 5 ARTEMIO with bilateral rails. Stairs are 16 deep, 2.5' wide , and standard height. Home Environment Standard Height Toilet,Walk in Shower Home Equipment Straight Cane,Raised Toilet Seat Without Armrests Employment Status Retired Additional Social History Comment Pt states his RV hallways are too narrow for a walker. He has trialed his own hemiwalker in the halls and found that it fit everywhere he needed to go. He is accustomed to sleeping in a recliner M2 PT-IP Current Condition Start: 06/23/19 10:34 Freq: NEEDED Status: Active Protocol: Document 06/23/19 12:23 AW (Rec: 06/23/19 12:51 AW [id number]) Physical Therapy Current Condition Current Condition Evaluation Date 06/23/19 Treatment Diagnosis R TKA, impaired mobility Onset Date 06/22/19 Weight Bearing Status Weight Bearing Status Weight Bear as Tolerated M3 PT-IP Subjective Start: 06/23/19 10:34 Freq: NEEDED Status: Active Protocol: Document 06/23/19 12:23 AW (Rec: 06/23/19 12:51 AW [id number]) Subjective Physical Therapy Visit Type Type Initial Evaluation Visit Start Time 11:32 Visit Stop Time 12:12 Total Visit Minutes 40 Number of BUTTON ATTACHING MACHINE OPERATOR Visits 0 Physical Therapy Visit Comments Patient Comments Pt has highly irritable pain symptoms but is willing to attempt mobility with PT Patient Goals Pt hopes to go home at discharge Therapy Pain Assessment Pain When Pain Assessed During Mobility Pain Present Pain Present Pain Reported Location r knee Intensity 8 Scale Used 1/10 at rest; 8/10 with all mobility Pain Behaviors Facial Grimacing,Guarding, Moaning,Wincing Pain Management Techniques Apply Cold,Re-positioning, Timing of Activity with Medications M4 PT-IP Mobility and Gait Start: 06/23/19 10:34 Freq: NEEDED Status: Active Protocol: Document 06/23/19 12:23 AW (Rec: 06/23/19 12:51 AW [id number]) PT-Bed Mobility Assessment Supine to Sit Supine to Sit Moderate Assistance,1 Person Assistance,Head of Bed Elevated,Bedrails Scooting Scooting to Edge of Bed Minimal Assistance PT-Transfer Assessment Sit to and From Stand Sit to and from Stand Moderate Assistance,1 Person Assistance,Use of Upper Extremities Equipment Transfer Assistive Device Gait Belt,Front Wheeled Walker Transfers Transfer Destination Chair Transfer Technique pt ambulated with FWW Transfer Ability Level of Assist Contact Guard Assistance Comments Mobility Comments Pt reports increase in pain from 1/10 at rest to 8/10 with bed mobility. He was able to swing both legs to EOB and experienced spasm of right distal quadriceps with knee flexion. Pt was able to rest in reclined position long enough for spasm to calm down. He required mod assist and increased time to achieve seated position EOB. Pt completed sit to stand with mod assist and cues for sequencing. Transfer to chair required CGA with pt demonstrating poor eccentric control. Gait Assessment Gait Gait Assistance Required: Contact Guard Assist Distance (Feet) 3 Able to Maintain Weight Bearing Status Yes During Gait Assistive Devices Assistive Device Gait Belt,Front Wheeled Walker Gait Deviations General Gait Pattern Antalgic,Decreased Stride Length,Decreased Feet Clearance,Step-to Gait Factors Limiting Gait Function Factors Limiting Gait Function Decreased Activity Tolerance, Decreased Strength,Limited Range of Motion,Pain Comments Gait Comments Pt ambulated 3 feet from bed to chair with FWW CGA. Gait was notable for severely limited step length and foot clearance. Stair Climbing Assessment Comments Stair Climbing Comments Not assessed. PT-Balance Assessment Sitting Balance and Reactions Static Sitting Balance Ability Good Dynamic Sitting Balance Ability Good Standing Balance and Reactions Static Standing Balance Ability Fair Dynamic Standing Balance Ability Fair Device Used FWW M5 PT-IP Objective Assessments Start: 06/23/19 10:34 Freq: NEEDED Status: Active Protocol: Document 06/23/19 12:23 AW (Rec: 06/23/19 12:51 AW [id number]) Orientation Orientation/Cognition Level of Alertness Alert Orientation Name,Day of Week,Place, Situation Language Function Ability No Deficits Noted Safety Awareness Understands Safety Issues Memory Description No Deficits Noted Gross Range of Motion Upper Extremity ROM Assessment Within Functional Limits Lower Extremity ROM Assessment Right Impaired Strength Upper Extremity Strength Assessment Within Functional Limits Lower Extremity Strength Assessment Right Impaired Comments Strength Comments BUE and LLE 4+/5 grossly Sensation Assessment Sensation Gross Sensation WNL M6 PT-IP Treatment Start: 06/23/19 10:34 Freq: NEEDED Status: Active Protocol: Document 06/23/19 12:23 AW (Rec: 06/23/19 12:51 AW [id number]) Physical Therapy Treatment Exercises Exercises Ankle Pumps,Quad Sets,Heel Slides,Passive Knee Extension Hang Education Education Provided Precautions,Weight Bearing Status,Post-Op Packet,Safety Other Treatments Other Treatment Performed Pt unable to flex knee >10 degrees due to pain. Reviewed PT plan of care, post-op exercises, weightbearing status, and safe use of FWW. M7 PT-IP Assessment and Plan Start: 06/23/19 10:34 Freq: NEEDED Status: Active Protocol: Document 06/23/19 12:23 AW (Rec: 06/23/19 12:51 AW [id number]) PT Summary Assessment and Plan Potential Rehabilitation Potential Good Status of Condition at Evaluation Evolving Summary Impairments Pain,ROM,Strength,Bed Mobility ,Transfers,Gait,Activity Tolerance Assessment Summary Pt is a 68 yo man seen for PT evaluation on POD1 following R TKA. PLOF: Pt was independent in all regards prior to January 2019. Since then, he has used a single point cane for short distance community mobility. CLOF: Pt required mod assist for bed mobility with HOB elevated and sit to stand. He does not sleep in a bed at home. Ambulation of 3 feet and transfer to chair required CGA and increased time. Pt exhibits greatly increased pain with all mobility and poor activity tolerance. Will continue to assess, but at this time PT recommends consideration of SNF for short term rehab stay before return to home. He is unable to use a FWW at home due to narrow hallways, so will need to use a hemiwalker or similar unilateral device. He is unsafe to use a hemiwalker at this time. In addition, pt's is limited by poor shoulder range of motion and back pain; she is unable to provide meaningful physical assist. Goals Bed Mobility Goal Standby Assistance Transfer Goal Standby Assistance,Front Wheeled Walker Gait Goal Standby Assistance,Simone Walker Gait Distance 75 Other Goals up/down 5 steps with bilateral rails SBA. Days to Meet Goals 5 Frequency of Treatment Frequency Of Treatment Twice a Day Treatment Plan Physical Therapy Treatment Plan Bed Mobility Training,Transfer Training,Gait Training, Therapeutic Exercise,Balance Retraining,Post Op Education, Discharge Planning,Hot or Cold Pack,Neuromuscular Re-ed, Coordination Retraining,Manual Therapy Other Recommendations and Next Treatment Review exercises, progress Focus gait distance, trial stairs. Coordianate timing of treatment with pain meds Recommendations To Nursing Amount of Assist Needed 1 Person Assist,2 Person Assist Discharge Recommendations PT Discharge Recommendations Home with Assistance,Home Health,SNF Rehab Other Discharge Recommendations SNF vs home with assist and
[2019-06-23 13:28] VITALS: BP 127/66; PULSE 77; RESP 18; TEMP 36.7; O2SAT 95
[2019-06-23 15:35] VITALS: BP 126/88; PULSE 70; RESP 18; TEMP 37.3; O2SAT 98
[2019-06-23] MEDS: HYDROMORPHONE 2 MG TABLET PO ×2 (17:11→21:38)
[2019-06-23 19:40] VITALS: BP 153/75; PULSE 72; RESP 72; TEMP 36.9; O2SAT 97
[2019-06-24 01:45] VITALS: BP 122/72; PULSE 77; RESP 16; TEMP 37.1; O2SAT 95
[2019-06-24] MEDS: KETOROLAC 30 MG/ML VIAL IV (03:38)
[2019-06-24] MEDS: HYDROMORPHONE 2 MG TABLET PO ×5 (03:39→20:21)
[2019-06-24] MEDS: hydrOXYzine pamoate 25 MG CAPSULE PO (05:51)
[2019-06-24] MEDS: OXYCODONE IR 10 MG TABLET PO (05:51)
[2019-06-24 07:45] VITALS: BP 112/68; PULSE 72; RESP 16; TEMP 36.8; O2SAT 97
--- NOTE | 2019-06-24 08:23 | P.PN_ITS ---
Subjective Subjective Date Patient Seen: 06/24/19 Time Patient Seen: 08:23 Interval history: Patient states his pain control is significantly better today. Currently only having mild pain. Denies fever chills. No nausea vomiting. Patient has not worked with physical therapy on stairs. Exam Vital Signs (past 8 hours): - 06/24/19 01:45 Temperature 98.8 F Pulse Rate 77 Respiratory Rate 16 Blood Pressure 122/72 Pulse Oximetry 95 Oxygen Delivery Method Room Air Oxygen Flow Rate 0 Narrative Exam Narrative: 69-year-old male sitting comfortably in bedside chair in no appa rent distress. Dressing is clean, dry and intact. Motor functions intact distally. Sensation grossly intact to light touch. Right leg is warm and dry. Objective Labs Result Diagrams: 06/23/19 05:55 Assessment & Plan Post-op Postoperative Procedures: Procedures Operation Date: 06/22/19 12:45 Actual Procedures Side Surgeon p *OPB* Total Knee Arthroplasty Right Jose F Siu MD Postop day 2 status post right total knee arthroplasty. Mobilize with physical therapy. Patient does live in a recreational vehicle and will need to be able to negotiate narrow hallways and a steep flight of stairs to get into the vehicle. Likely discharge home with assistance tomorrow and or [facility] facility.
[2019-06-24] MEDS: ALLOPURINOL 100 MG TABLET PO (08:55)
[2019-06-24] MEDS: ATENOLOL 50 MG TABLET PO (08:55)
[2019-06-24] MEDS: ACETAMINOPHEN 325 MG TABLET 975 MG PO ×3 (08:56→20:20)
[2019-06-24 08:58] VITALS: BP 112/68
[2019-06-24] MEDS: LISINOPRIL 20 MG TABLET PO (08:58)
[2019-06-24] MEDS: hydroCHLOROthiazide 25 MG TABLET PO (08:58)
[2019-06-24] MEDS: ASPIRIN EC 81 MG TABLET PO ×2 (08:58→20:20)
[2019-06-24] MEDS: ATORVASTATIN 20 MG TABLET 40 MG PO (08:59)
[2019-06-24] MEDS: DOCUSATE 100 MG CAPSULE PO ×2 (08:59→20:20)
[2019-06-24] MEDS: METFORMIN HCL 500 MG TABLET PO (08:59)
[2019-06-24] MEDS: POLYETHYLENE GLYCOL 3350 17 GM POWD.PACK PO (09:02)
--- NOTE | 2019-06-24 11:41 | PT.IPTN ---
Current Diagnoses Other chondrocalcinosis, unspecified site (06/23/19) Unilateral primary osteoarthritis, right knee (06/23/19) Surgery Performed Operation Date: 06/22/19 12:45 Actual Procedures p *OPB* Total Knee Arthroplasty(Right) - Jose F Siu MD Physical Therapy Treatment Note M2 PT-IP Current Condition Start: 06/23/19 10:34 Freq: NEEDED Status: Active Protocol: Document 06/23/19 12:23 AW (Rec: 06/23/19 12:51 AW [id number]) Physical Therapy Current Condition Current Condition Evaluation Date 06/23/19 Treatment Diagnosis R TKA, impaired mobility Onset Date 06/22/19 Weight Bearing Status Weight Bearing Status Weight Bear as Tolerated M3 PT-IP Subjective Start: 06/23/19 10:34 Freq: NEEDED Status: Active Protocol: Document 06/24/19 10:30 HH (Rec: 06/24/19 11:41 HH [id number]) Subjective Physical Therapy Visit Type Type Treatment Note Visit Start Time 10:30 Visit Stop Time 10:52 Total Visit Minutes 22 Number of PADDED BOX SEWER Visits 0 Physical Therapy Visit Comments Patient Comments I feel better today with less pain. I want to try walking. Therapy Pain Assessment Pain When Pain Assessed During Mobility Location lower back Intensity 5 Scale Used Numeric (1 - 10) Description Sharp r knee Intensity 3 Scale Used Numeric (1 - 10) Pain Behaviors Facial Grimacing,Holding Area, Wincing Pain Management Techniques Apply Cold,Re-positioning, Timing of Activity with Medications M4 PT-IP Mobility and Gait Start: 06/23/19 10:34 Freq: NEEDED Status: Active Protocol: Document 06/24/19 10:30 HH (Rec: 06/24/19 11:41 HH [id number]) PT-Bed Mobility Assessment Supine to Sit Supine to Sit Moderate Assistance,1 Person Assistance,Head of Bed Elevated,Bedrails Scooting Scooting to Edge of Bed Contact Guard Assistance PT-Transfer Assessment Sit to and From Stand Sit to and from Stand Minimal Assistance,1 Person Assistance,Use of Upper Extremities Equipment Transfer Assistive Device Gait Belt,Front Wheeled Walker Transfers Transfer Destination Bed,Chair Transfer Technique pt ambulated with FWW Transfer Ability Level of Assist Contact Guard Assistance Comments Mobility Comments Pt cont verbalized sharp pain with AROM/AAROM of R Knee ( only able to reach 70 degrees) . He cont needed increased time for supine to sit by using L ankle to unweight his RLE. Pt did need SLAG MIXER from PT to get to edge of bed. He stood up with min A and FWW with a staggered stance position. Pt primarily WB through his UEs and LLE, increased pain noticed with weight shift to R side. Pt did sit <> stand x 3times and stand step pivot transfer with walk in total but they all needed min A due to his pain and poor LLE strength. Gait Assessment Gait Gait Assistance Required: Contact Guard Assist Distance (Feet) 12 Able to Maintain Weight Bearing Status Yes During Gait Assistive Devices Assistive Device Gait Belt,Front Wheeled Walker Gait Deviations General Gait Pattern Antalgic,Decreased Stride Length,Decreased Feet Clearance,Step-to Gait Factors Limiting Gait Function Factors Limiting Gait Function Decreased Activity Tolerance, Decreased Strength,Limited Range of Motion,Pain Comments Gait Comments Pt amb with a step to gait from bed to hallway with w/c follow. Pt primarily WB through UEs and LLE due to increased pain in R knee. Pt had to sit in w/c for rest after 10 feet for 5 mins. He was then w/c back to side of his chair and did stnad step pivot transfer. Pt reports his L knee is weak, along with his chronic LBP that limits his activity tolerance and mobility. Stair Climbing Assessment Comments Stair Climbing Comments Not assessed today. I cant do it now for sure. PT-Balance Assessment Sitting Balance and Reactions Static Sitting Balance Ability Good Dynamic Sitting Balance Ability Good Standing Balance and Reactions Static Standing Balance Ability Fair Dynamic Standing Balance Ability Fair Device Used FWW M5 PT-IP Objective Assessments Start: 06/23/19 10:34 Freq: NEEDED Status: Active Protocol: Document 06/23/19 12:23 AW (Rec: 06/23/19 12:51 AW [id number]) Orientation Orientation/Cognition Level of Alertness Alert Orientation Name,Day of Week,Place, Situation Language Function Ability No Deficits Noted Safety Awareness Understands Safety Issues Memory Description No Deficits Noted Gross Range of Motion Upper Extremity ROM Assessment Within Functional Limits Lower Extremity ROM Assessment Right Impaired Strength Upper Extremity Strength Assessment Within Functional Limits Lower Extremity Strength Assessment Right Impaired Comments Strength Comments BUE and LLE 4+/5 grossly Sensation Assessment Sensation Gross Sensation WNL M6 PT-IP Treatment Start: 06/23/19 10:34 Freq: NEEDED Status: Active Protocol: Document 06/23/19 12:25 LYN (Rec: 06/23/19 14:47 LYN [email or web address]) Physical Therapy Treatment Exercises Exercises Ankle Pumps,Quad Sets,Seated Knee Flexion/Extension Education Education Provided Post-Op Packet,Safety Other Treatments Other Treatment Performed Review post- op ex, knee flexion ROM to improve gait quality. M7 PT-IP Assessment and Plan Start: 06/23/19 10:34 Freq: NEEDED Status: Active Protocol: Document 06/24/19 10:30 HH (Rec: 06/24/19 11:41 HH [id number]) PT Summary Assessment and Plan Potential Rehabilitation Potential Good Status of Condition at Evaluation Evolving Summary Impairments Pain,ROM,Strength,Bed Mobility ,Transfers,Gait,Activity Tolerance Assessment Summary Pt did not show improvements today who stated he is primarily limited by his chronic LBP and B knee pain. Pt was able to amb ~12 feet with w/c follow. Pt reports he is not ready to go home, especially he has 5 steps to negotiate into RV and narrow hallway/bathroom. Communicated with SW regarding pt's current condition and limitation for home environment and spouse's limited assistance which creates significant fall risks for further injury. cont recommend SNF as an ideal option to improve his mobility and strength. Goals Bed Mobility Goal Standby Assistance Transfer Goal Standby Assistance,Front Wheeled Walker Gait Goal Standby Assistance,Simone Walker Gait Distance 75 Other Goals up/down 5 steps with bilateral rails SBA. Days to Meet Goals 5 Frequency of Treatment Frequency Of Treatment Twice a Day Treatment Plan Physical Therapy Treatment Plan Bed Mobility Training,Transfer Training,Gait Training, Therapeutic Exercise,Balance Retraining,Post Op Education, Discharge Planning,Hot or Cold Pack,Neuromuscular Re-ed, Coordination Retraining,Manual Therapy Other Recommendations and Next Treatment Review exercises, progress Focus gait distance, trial stairs. Coordinate timing of treatment with pain meds. Recommendations To Nursing Amount of Assist Needed 1 Person Assist,2 Person Assist Discharge Recommendations PT Discharge Recommendations Home with Assistance,Home Health,SNF Rehab Other Discharge Recommendations SNF vs home with assist and HH Equipment Needed for Home Before raised toilet seat Discharge
--- NOTE | 2019-06-24 13:18 | OT.IP.EVAL ---
Current Diagnoses Other chondrocalcinosis, unspecified site (06/23/19) Unilateral primary osteoarthritis, right knee (06/23/19) Surgery Performed Operation Date: 06/22/19 12:45 Actual Procedures p *OPB* Total Knee Arthroplasty(Right) - Jose F Siu MD Past Medical History (Last Updated 06/17/19 @ 12:17 by Jodi Moran RN) Asthma (Acute) Depression (Acute ~2007) Former smoker (Acute) Gout (Acute) HLD (hyperlipidemia) (Acute) HTN (hypertension) (Acute) Numbness (Acute) Prostate cancer (Acute ~2014) Stage III chronic kidney disease (Acute) Surgical History (Last Updated 06/08/19 @ 10:24 by Jodi Moran RN) Hx of arthroscopy of left knee (Acute) Hx of arthroscopy of right knee (Acute ~2006) Hx of hernia repair (Acute) Hx of knee surgery (Acute ~1968) Hx of laminectomy (Acute ~2007) Hx of laminectomy (Acute ~2012) Hx of prostatectomy (Acute ~2014) Hx of tonsillectomy (Acute) S/P lumbar fusion (Acute ~2009) Status post extracapsular cataract extraction of left eye (Acute) Occupational Therapy Inpatient Evaluation/Re-Eval M1 PT/OT-IP Prior Functional Status Start: 06/24/19 13:42 Freq: NEEDED Status: Active Protocol: Document 06/24/19 13:43 [facility] (Rec: 06/24/19 14:03 [facility] [id number]) Medical Review Prior Functional Status Medical History Reviewed Yes Diet/Fluid Consistency Regular Communication WNL Mobility and Gait Before January, pt was independent without need for assistive device. Since that time, pt ambulated household distances with no assistive device, but relied on a SPC for short community distances. He was limited in distance due to knee pain and back pain . Activities of Daily Living and IADL's Independent Prior Functional Level (Other details) No falls in the past two years . Social History Household Members spouse Living Arrangements RV Number of Floors (Floors) One Floor Number of Stairs To Enter/Railing? 5 ARTEMIO with bilateral rails. Stairs are 16 deep, 2.5' wide , and standard height. Home Environment Standard Height Toilet,Walk in Shower Home Equipment Straight Cane,Raised Toilet Seat Without Armrests Employment Status Retired Additional Social History Comment Pt had measure hallways at home and figured out that the FWW will be able to fit in hallway and bathroom at home. Pt sleeps in the recliner at home. M2 OT-IP Current Condition Start: 06/24/19 13:42 Freq: Status: Active Protocol: Document 06/24/19 13:43 [facility] (Rec: 06/24/19 14:03 [facility] [id number]) Occupational Therapy Current Condition Current Condition Evaluation Date 06/24/19 Treatment Diagnosis Right knee Osteoarthritis/ s/p R TKA, decreased mobility Weight Bearing Status Weight Bearing Status Weight Bear as Tolerated M3 OT- IP Subjective and Pain Start: 06/24/19 13:42 Freq: Status: Active Protocol: Document 06/24/19 13:43 [facility] (Rec: 06/24/19 14:03 [facility] [id number]) OT- Subjective Occupational Therapy Visit Type Type Initial Evaluation Visit Start Time 13:18 Visit Stop Time 13:38 Total Visit Minutes 20 Occupational Therapy Visit Comments Patient Comments Pt agreed to get up for OT eval however concerned about going home as feeling that he will not be able to get up his 5 steps at home. Patient/Caregiver Goals To go home if able. OT Pain Assessment Pain When Pain Assessed At Rest Pain Present Pain Present Pain Reported Location lower back Intensity 3 Scale Used Numeric (1 - 10) M4 OT- IP ADL's Start: 06/24/19 13:42 Freq: Status: Active Protocol: Document 06/24/19 13:43 [facility] (Rec: 06/24/19 14:03 [facility] [id number]) OT [id number] Comments OT Self-Feeding Comments Not at meal time. OT ADL-Grooming Comments OT Grooming Comments Pt states not wanting to do any grooming at this time as did earlier. OT ADL-Dressing General Eval Upper Body Dressing Ability Independent Lower Body Dressing Ability Maximum Assistance Areas Needing Assistance Retrieving/Set-up of Clothing, Socks Assistive Devices Dressing Assistive Devices Technologist Development,Sock Aid Comments OT Dressing Comments At this time due to decreased ability for pt to bend right knee needing MAX A to chetan right sock and to be able to assist to get clothing over his right foot and assist to help pull up over his hips as pt will be having to use FWW to stand for his balance. Pt states not able to physically assist due to having a bad right shoulder and heel. Educated pt on use of forklift wheel loader to chetan clotning over right foot first and taking it out last. Pt able to chetan/doff socks with sock aid after education with increased time. Sock aid issued to pt. OT ADL-Toileting General Evaluation Toileting Ability Maximum Assistance Comments OT Toileting Comments Pt not having to use the toilet and states in too much pain to try. Pt will benefit from urinal, current set-up at home can use counter on the left and door jab to assist to stand, otherwise to get a BSC to increase ease to come to stand . For completeness, pt will need MAX for hygiene needs while standing with FWW. OT ADL-Bathing Comments OT Bathing Comments Pt states has a long handled brush at home. M5 OT- IP IADL's Start: 06/24/19 13:42 Freq: Status: Active Protocol: Document 06/24/19 13:43 [facility] (Rec: 06/24/19 14:03 [facility] [id number]) OT-Instrumental Activities of Daily Living Home Safety Awareness Home Safety Comments Pt's unable to provide physical assist to pt at this time, however able to assist for IADl needs and minimally for ADL needs. Medication Management Medication Management No Deficits Identified Meal Preparation Meal Preparation Caregiver Provides Assist M6 OT- IP Functional Cognition Start: 06/24/19 13:42 Freq: Status: Active Protocol: Document 06/24/19 13:43 [facility] (Rec: 06/24/19 14:03 [facility] [id number]) Cognitive Factors Limiting Selfcare Function Cognitive Ability Level of Alertness Alert Patient Orientation Name,Place,Situation Attention Span Ability Capable of Focused Attention, Capable of Sustained Attention Ability to Follow Commands Able to Follow Multi-Step Commands Memory Description No Deficits Noted Problem Solving Ability No deficits Noted Cognitive Comments Cognitive Assessment Comments Pt appears to be baseline for cognitive need and no deficits noted. OT- Vision and Hearing OT- Hearing Assessment OT- Hearing Assessment WFL OT- Vision Assessment Visual Acuity Glasses All The Time M7 OT- IP Mobility and Balance Start: 06/24/19 13:42 Freq: Status: Active Protocol: Document 06/24/19 13:43 [facility] (Rec: 06/24/19 14:03 [facility] [id number]) OT-Transfer Assessment Sit to and From Stand Sit to and from Stand Standby Assistance, GALO,Use of Upper Extremities. As pt arm tire and from lower surface pt will need physical assist to stand. Transfers Transfer Ability Standby Assistance,1 Person Assistance,Use of Upper Extremities Technique Transfer Destination Chair Transfer Technique Stand Step Pivot Devices Transfer Assistive Devices Gait Belt,Front Wheeled Walker Comments Mobility Comments Pt heavily relies on BUE to help come to stand with FWW and able to walk to and from the sink with FWW and minimally putting weight through RLE.. Pt noted decreased activity tolerance and needing to sit down after just walking 10 ft. OT- Balance Assessment Sitting Balance and Reactions Static Sitting Balance Ability Normal Dynamic Sitting Balance Ability Good Standing Balance and Reactions Static Standing Balance Ability Fair Dynamic Standing Balance Ability Poor M8 OT- IP Objective Assessments Start: 06/24/19 13:42 Freq: Status: Active Protocol: Document 06/24/19 13:43 [facility] (Rec: 06/24/19 14:03 [facility] [id number]) OT Gross Range of Motion Upper Extremity Range of Motion Assessment Within Functional Limits OT Strength Upper Extremity Strength Assessment Within Functional Limits OT-Muscle Tone Assessment Muscle Tone WNL Yes M9 OT- IP Assessment and Plan Start: 06/24/19 13:42 Freq: Status: Active Protocol: Document 06/24/19 13:43 [facility] (Rec: 06/24/19 14:03 [facility] [id number]) OT Summary Assessment and Plan Potential Rehabilitation Potential Good Analytic Complexity at Evaluation Low Summary OT Impairments Pain,Balance,Functional Mobility,Dressing,Toileting, Bathing,Toilet Transfers, Shower Transfers Progress Towards Goals Progressing Toward Goals Assessment Summary Pt main barrier are pain, decreased mobility in right knee, not able to provide physical assist at home, and having 5 steps at home. Pt compensates while walking with FWW and mainly just using his arms and LLE and not putting much weight through his RLE. Pt would greatly benefit from short skilled rehab stay to continues to work on getting more AROM with right knee to help increase independence for ADL's, increase safety, increased activity tolerance, and to decrease compensation and educated pt on proper body mechanics to decrease risk of orthopedic /pain issue in the future. Goals Self-Feeding Goal Independent Grooming Goal Independent Dressing Goal Standby Assistance Toileting Goal Standby Assistance Bathing Goal Minimal Assistance Toilet Transfer Goal Independent Shower Transfer Goal Standby Assistance Patient/Caregiver Education Goal Demonstrate Post-Op Precautions,Caregiver Independent Assisting Patient OT-Other Goals Grooming in standing. Days to Meet Goals 5 Frequency of Treatment Frequency Of Treatment Once a Day Treatment Plan OT Treatment Plan ADL Training,Functional Mobility,Patient/Family Education,Discharge Planning Other Treatment Recommendations and Next Shower Treatment Focus Discharge Recommendations OT Discharge Recommendations SNF Rehab Home Equipment Needs Shower chair, C
--- NOTE | 2019-06-24 14:22 | OT.IP.TRT ---
Current Diagnoses Other chondrocalcinosis, unspecified site (06/23/19) Unilateral primary osteoarthritis, right knee (06/23/19) Surgery Performed Operation Date: 06/22/19 12:45 Actual Procedures p *OPB* Total Knee Arthroplasty(Right) - Jose F Siu MD Occupational Therapy Treatment Note M2 OT-IP Current Condition Start: 06/24/19 13:42 Freq: Status: Active Protocol: Document 06/24/19 13:43 [facility] (Rec: 06/24/19 14:03 [facility] [id number]) Occupational Therapy Current Condition Current Condition Evaluation Date 06/24/19 Treatment Diagnosis Right knee Osteoarthritis/ s/p R TKA, decreased mobility Weight Bearing Status Weight Bearing Status Weight Bear as Tolerated M3 OT- IP Subjective and Pain Start: 06/24/19 13:42 Freq: Status: Active Protocol: Document 06/24/19 15:06 [facility] (Rec: 06/24/19 15:34 [facility] [id number]) OT- Subjective Occupational Therapy Visit Type Type Treatment Note Visit Start Time 14:22 Visit Stop Time 14:51 Total Visit Minutes 29 Occupational Therapy Visit Comments Patient Comments Pt being seen for second session as pt's here for caregiver training. Patient/Caregiver Goals Pt wanting to go to skilled rehab prior to going home as feels not safe to go home due still having difficulty to move his RLE. OT Pain Assessment Pain When Pain Assessed At Rest Pain Present Pain Present Pain Reported Location lower back Intensity 3 Scale Used Numeric (1 - 10) M4 OT- IP ADL's Start: 06/24/19 13:42 Freq: Status: Active Protocol: Document 06/24/19 15:06 [facility] (Rec: 06/24/19 15:34 [facility] [id number]) OT ADL-Toileting General Evaluation Toileting Ability Maximum Assistance Areas Needing Assistance Perform Perineal Hygiene Devices Toileting Assistive Devices Commode Comments OT Toileting Comments Pt will benefit from BSC over the toilet as pt heavily relies on his arms to come to stand and to sit down. Pt not able to stand with wipe at the same time and needing MAX A for completeness to wipe. OT ADL-Bathing Comments OT Bathing Comments To attempt tomorrow for shower or sponge bath. M5 OT- IP IADL's Start: 06/24/19 13:42 Freq: Status: Active Protocol: Document 06/24/19 13:43 [facility] (Rec: 06/24/19 14:03 [facility] [id number]) OT-Instrumental Activities of Daily Living Home Safety Awareness Home Safety Comments Pt's unable to provide physical assist to pt at this time, however able to assist for IADl needs and minimally for ADL needs. Medication Management Medication Management No Deficits Identified Meal Preparation Meal Preparation Caregiver Provides Assist M6 OT- IP Functional Cognition Start: 06/24/19 13:42 Freq: Status: Active Protocol: Document 06/24/19 13:43 [facility] (Rec: 06/24/19 14:03 [facility] [id number]) Cognitive Factors Limiting Selfcare Function Cognitive Ability Level of Alertness Alert Patient Orientation Name,Place,Situation Attention Span Ability Capable of Focused Attention, Capable of Sustained Attention Ability to Follow Commands Able to Follow Multi-Step Commands Memory Description No Deficits Noted Problem Solving Ability No deficits Noted Cognitive Comments Cognitive Assessment Comments Pt appears to be baseline for cognitive need and no deficits noted. OT- Vision and Hearing OT- Hearing Assessment OT- Hearing Assessment WFL OT- Vision Assessment Visual Acuity Glasses All The Time M7 OT- IP Mobility and Balance Start: 06/24/19 13:42 Freq: Status: Active Protocol: Document 06/24/19 15:06 [facility] (Rec: 06/24/19 15:34 [facility] [id number]) OT-Transfer Assessment Sit to and From Stand Sit to and from Stand Minimal Assistance,Moderate Assistance Transfers Transfer Ability Minimal Assistance Technique Transfer Destination Bedside Commode,Chair Transfer Technique Stand Step Pivot Devices Transfer Assistive Devices Gait Belt,Front Wheeled Walker Comments Mobility Comments Pt needing more assist to stand from C as getting tired and needing more assist to walk as unsteady and relying on his LLE and not tolerating putting weight on his RLE. GALO for balance and cues to tighten his quads as well. OT- Balance Assessment Sitting Balance and Reactions Static Sitting Balance Ability Normal Dynamic Sitting Balance Ability Good Standing Balance and Reactions Static Standing Balance Ability Fair Dynamic Standing Balance Ability Poor M8 OT- IP Objective Assessments Start: 06/24/19 13:42 Freq: Status: Active Protocol: Document 06/24/19 13:43 [facility] (Rec: 06/24/19 14:03 [facility] [id number]) OT Gross Range of Motion Upper Extremity Range of Motion Assessment Within Functional Limits OT Strength Upper Extremity Strength Assessment Within Functional Limits OT-Muscle Tone Assessment Muscle Tone WNL Yes M9 OT- IP Assessment and Plan Start: 06/24/19 13:42 Freq: Status: Active Protocol: Document 06/24/19 15:06 [facility] (Rec: 06/24/19 15:34 [facility] [id number]) OT Summary Assessment and Plan Potential Rehabilitation Potential Good Analytic Complexity at Evaluation Low Summary OT Impairments Pain,Balance,Functional Mobility,Dressing,Toileting, Bathing,Toilet Transfers, Shower Transfers Progress Towards Goals Progressing Toward Goals,Slow Progress due to Pain,Slow Progress due to Activity Tolerance Assessment Summary Pt needing extensive assist for ADl's and now states has a step to get into the shower. At this time, pt will benefit from skilled rehab prior to going home as currently not strong enough/ safe enough to be able to get into the house or care for himself. Goals Self-Feeding Goal Independent Grooming Goal Independent Dressing Goal Standby Assistance Toileting Goal Standby Assistance Bathing Goal Minimal Assistance Toilet Transfer Goal Independent Shower Transfer Goal Standby Assistance Patient/Caregiver Education Goal Demonstrate Post-Op Precautions,Caregiver Independent Assisting Patient OT-Other Goals Grooming in standing. Days to Meet Goals 7 Frequency of Treatment Frequency Of Treatment Once a Day Treatment Plan OT Treatment Plan ADL Training,Functional Mobility,Patient/Family Education,Discharge Planning Other Treatment Recommendations and Next Shower Treatment Focus Discharge Recommendations OT Discharge Recommendations SNF Rehab Home Equipment Needs Shower chair, BSC
--- NOTE | 2019-06-24 14:29 | PT.IPTN ---
Current Diagnoses Other chondrocalcinosis, unspecified site (06/23/19) Unilateral primary osteoarthritis, right knee (06/23/19) Surgery Performed Operation Date: 06/22/19 12:45 Actual Procedures p *OPB* Total Knee Arthroplasty(Right) - Jose F Siu MD Physical Therapy Treatment Note M2 PT-IP Current Condition Start: 06/23/19 10:34 Freq: NEEDED Status: Active Protocol: Document 06/23/19 12:00 [facility] (Rec: 06/23/19 12:51 AW [id number]) Physical Therapy Current Condition Current Condition Evaluation Date 06/23/19 Treatment Diagnosis R TKA, impaired mobility Onset Date 06/22/19 Weight Bearing Status Weight Bearing Status Weight Bear as Tolerated M3 PT-IP Subjective Start: 06/23/19 10:34 Freq: NEEDED Status: Active Protocol: Document 06/24/19 14:29 [facility] (Rec: 06/24/19 16:04 [facility] [id number]) Subjective Physical Therapy Visit Type Type Treatment Note Visit Start Time 14:29 Visit Stop Time 14:52 Total Visit Minutes 23 Number of V BELT BUILDER Visits 0 Physical Therapy Visit Comments Patient Comments pt agreeable to do PT Therapy Pain Assessment Pain When Pain Assessed At Rest Pain Present Pain Present Pain Reported Location lower back Scale Used did not state pain scale but stated that it is more painful than the knee M4 PT-IP Mobility and Gait Start: 06/23/19 10:34 Freq: NEEDED Status: Active Protocol: Document 06/24/19 14:29 [facility] (Rec: 06/24/19 16:04 AB [id number]) PT-Transfer Assessment Sit to and From Stand Sit to and from Stand Contact Guard Assistance,1 Person Assistance,Use of Upper Extremities Equipment Transfer Assistive Device Gait Belt,Front Wheeled Walker Orthotic/Prosthetic Devices or Brace: No Transfers Transfer Destination Toilet Transfer Technique ambulated to the toilet using FWW Transfer Ability Level of Assist Minimal Assistance,Moderate Assistance,1 Person Assistance ,Use of Upper Extremities Comments Mobility Comments completed RLE exercises. Checked R knee extension strength: 2+/5 pt completed sit to stand from the chair CGA to min A. presents with unsteadiness with initial standing requiring min for stability and safety. completed ambulation using FWW ~ 12 ft and requested to sit down. c/o back pain and stated that back pain is more than his R knee pain. pt requested to use the toilet and ambulated from the chair to the toile tusing FWW ~ 10 ft min to mod A and cues for safety. pt required min A for controlled descent to the toilet. OT took over. Gait Assessment Gait Gait Assistance Required: Minimum Assistance,Moderate Assistance,1 Person Assist Distance (Feet) 12 Able to Maintain Weight Bearing Status Yes During Gait Assistive Devices Assistive Device Gait Belt,Front Wheeled Walker Orthotic/Prosthetic Devices or Brace: No Gait Deviations General Gait Pattern Antalgic,Decreased Stride Length,Decreased Feet Clearance Factors Limiting Gait Function Factors Limiting Gait Function Decreased Activity Tolerance, Decreased Strength,Limited Range of Motion,Pain,Poor Balance,Poor Safety Awareness Comments Gait Comments completed ambulation in room using FWW 12+10 ft min to mod A and cues. initially presents with decrease weight bearing on RLE with pt hopping using FWW. educated pt on using RLE and activating quad muscles to stabilize. pt presents with usteady gait with heavy use of UE on FWW for support. presents with R knee buckling towards end of stance phase and requires PT to stabilize requiring mod A and cues. M5 PT-IP Objective Assessments Start: 06/23/19 10:34 Freq: NEEDED Status: Active Protocol: Document 06/23/19 12:00 [facility] (Rec: 06/23/19 12:51 AW [id number]) Orientation Orientation/Cognition Level of Alertness Alert Orientation Name,Day of Week,Place, Situation Language Function Ability No Deficits Noted Safety Awareness Understands Safety Issues Memory Description No Deficits Noted Gross Range of Motion Upper Extremity ROM Assessment Within Functional Limits Lower Extremity ROM Assessment Right Impaired Strength Upper Extremity Strength Assessment Within Functional Limits Lower Extremity Strength Assessment Right Impaired Comments Strength Comments BUE and LLE 4+/5 grossly Sensation Assessment Sensation Gross Sensation WNL M6 PT-IP Treatment Start: 06/23/19 10:34 Freq: NEEDED Status: Active Protocol: Document 06/24/19 14:29 [facility] (Rec: 06/24/19 16:04 AB [id number]) Physical Therapy Treatment Exercises Exercises Heel Slides Education Education Provided Weight Bearing Status,Safety M7 PT-IP Assessment and Plan Start: 06/23/19 10:34 Freq: NEEDED Status: Active Protocol: Document 06/24/19 14:29 [facility] (Rec: 06/24/19 16:04 AB [id number]) PT Summary Assessment and Plan Potential Rehabilitation Potential Good Summary Impairments Pain,ROM,Strength,Balance, Coordination,Bed Mobility, Transfers,Gait,Activity Tolerance Progress Towards Goals Slow Progress due to Pain,Slow Progress due to Medical Issues,Slow Progress due to Activity Tolerance Assessment Summary pt requires min to mod A with ambulation using FWW and unable to tolerate much with c /o back pain. pt presents with unsteady gait with heavy use of BUE for support, decrease RLE weight bearing with buckling towards end phase of stance. pt also has RLE weakness with quad strength of 2+/5 and at this not is not appropriate to do stair climbing. pt has 5 steps to enter the house and is not able to do steps currently. pt will require SNF rehab to improve strength and functional independence prior to d/c home. Goals Bed Mobility Goal Standby Assistance Transfer Goal Standby Assistance,Front Wheeled Walker Gait Goal Standby Assistance,Front Wheel Walker,Simone Walker Gait Distance 75 Other Goals up/down 5 steps with bilateral rails SBA. Days to Meet Goals 5 Frequency of Treatment Frequency Of Treatment Twice a Day Treatment Plan Physical Therapy Treatment Plan Bed Mobility Training,Transfer Training,Gait Training, Therapeutic Exercise,Balance Retraining,Post Op Education, Discharge Planning,Hot or Cold Pack,Neuromuscular Re-ed, Coordination Retraining,Manual Therapy Other Recommendations and Next Treatment LE exercises, ambulation Focus Recommendations To Nursing Amount of Assist Needed 1 Person Assist Discharge Recommendations PT Discharge Recommendations SNF Rehab
[2019-06-24 15:23] VITALS: BP 100/53; PULSE 79; RESP 18; TEMP 36.8; O2SAT 97
[2019-06-24 19:46] VITALS: BP 116/53; PULSE 71; RESP 18; TEMP 36.9
[2019-06-24] MEDS: SODIUM CHLORIDE 0.9% FLUSH 10 ML IV (20:19)
[2019-06-24 23:35] VITALS: BP 107/51; PULSE 76; RESP 16; TEMP 37.6; O2SAT 96
[2019-06-25] VITALS (8 sets, daily range): BP systolic 80–135; BP diastolic 48–69; PULSE 68–81; RESP 16–19; TEMP 36.3–38.8; O2SAT 95–99
--- NOTE | 2019-06-25 00:44 | PC.NURSE ---
Addendum entered by Jacqueline Baxter R.N. 06/25/19 05:14: Temperature down to 99.3 and pain at 3/10 but requests/medicated with Dilaudid to maintain pain control. Addendum entered by Jacqueline Baxter R.N. 06/25/19 04:32: Right knee is warm to touch, swollen and lightly pink around dressing. Addendum entered by Jacqueline Baxter R.N. 06/25/19 04:24: 0418 Temperature 101 and patient complaining of 5/10 right knee pain. Medicated with morning dose of scheduled Tylenol for fever and IV Toradol for pain since Dilaudid not due until 0500. Addendum entered by Jacqueline Baxter R.N. 06/25/19 03:07: Complaining of muscle spasms; medicated with Vistaril Addendum entered by Jacqueline Baxter R.N. 06/25/19 01:40: Patient complaining of increased pain/numbness in right leg so requested to have SCD removed from right leg. Addendum entered by Jacqueline Baxter R.N. 06/25/19 01:08: Patient complains of 3/10 lower back pain and twinges of pain in right knee but wanting to have po Dilaudid as other pain medications have not been working; medicated as requested. Original Note: Patient is alert and oriented. Breath sounds diminished at bases with RA sat of 96%. Temp 99.6 so discussed importance of using I.S. and CDB. HRR. Denies nausea. BT present and had BM yesterday. Voiding per urinal; denies dysuria, frequency or urgency. Able to turn self in bed and gets up with walker and 1 assist; denies feeling weak but does have limited ROM in right knee. Denies pain but agreeable to having ice pack placed. Right leg is elevated on pillows. Has chronic neuropathy in left leg from hip down; CMS otherwise intact. Aquacel dressing to right knee is CDI. Wearing SCD on left leg but agreeable to try again on right leg (states when used earlier the pressure caused too much pain). Fall risk score is moderate; bed alarm is activated.
[2019-06-25] MEDS: HYDROMORPHONE 2 MG TABLET PO ×4 (01:07→18:55)
[2019-06-25] MEDS: hydrOXYzine pamoate 25 MG CAPSULE PO ×3 (03:06→12:26)
[2019-06-25] MEDS: KETOROLAC 30 MG/ML VIAL IV ×2 (04:18→10:57)
[2019-06-25] MEDS: ACETAMINOPHEN 325 MG TABLET 975 MG PO ×3 (04:18→20:07)
[2019-06-25] MEDS: SODIUM CHLORIDE 0.9% FLUSH 10 ML IV ×3 (04:19→20:08)
[2019-06-25] MEDS: ALLOPURINOL 100 MG TABLET PO (08:20)
[2019-06-25] MEDS: ATENOLOL 50 MG TABLET PO (08:20)
[2019-06-25] MEDS: LISINOPRIL 20 MG TABLET PO (08:21)
[2019-06-25] MEDS: ASPIRIN EC 81 MG TABLET PO ×2 (08:21→20:07)
[2019-06-25] MEDS: METFORMIN HCL 500 MG TABLET PO (08:21)
[2019-06-25] MEDS: ATORVASTATIN 20 MG TABLET 40 MG PO (08:21)
[2019-06-25] MEDS: DOCUSATE 100 MG CAPSULE PO ×2 (08:21→20:07)
[2019-06-25] MEDS: hydroCHLOROthiazide 25 MG TABLET PO (08:21)
--- NOTE | 2019-06-25 08:34 | CM.DPNOTE ---
Addendum entered by LINETTE Dunn 06/25/19 13:32: According to WILLIE Purcell, pt has been approved for inpt stay by [facility]. Alerted pt/spouse re: [facility]'s initial response to SNF auth request. Pt's spouse especially upset and states she will call to express her frustration w/[facility] and states there is no way he can come home like this. This STONE POLISHER HAND explained further that pt can spend the night tonight and continue w/our therapy team to progress towards home tomorrow, (?) alerted pt that if [facility] responds by telling us they might refuse to pay for pt's hospitalization for ongoing length of stay, pt may then become responsible for the hospital bill for any additional nights in the hospital. Pt/spouse upset but understand pt may have to go home and stay in the car if I can't do RV stairs JW Original Note: DCP Cont: Spoke w/pt yesterday, he and spouse continue to want SNF, spouse has contacted [facility] to request SNF auth. Reiterated to pt that it was unlikely that [facility] would authorize a SNF stay after an elective knee surgery and pt understood. This STONE POLISHER HAND faxed updated prog note and updated PT/OT notes to [facility] yesterday afternoon for review to determine auth/denial for SNF request. Spoke w/Erna this morning; she explained that the [facility] physicians had reviewed and decided not to make a determination on denial vs authorization, rather, that [facility] should be contacted again w/ SNF auth request in another 1-2 days if pt still required SNF. WILLIE Purcell asks: If [facility] will not give us determination on SNF auth request, can we have an inpt auth to cover pt's extended length of stay? Erna/[facility] unsure about answer so is contacting [facility] physician and will either call this STONE POLISHER HAND vs WILLIE Purcell today. LINETTE Dunn
--- NOTE | 2019-06-25 10:00 | PM.PNPO.1 ---
Subjective Subjective Date Patient Seen: 06/25/19 Time Patient Seen: 10:00 Interval history: The patient reports pain control has been satisfactory. He is having some trouble with mobility and has not been able to go up and down stairs. Exam Vital Signs (past 8 hours): - 06/25/19 04:10 06/25/19 04:18 06/25/19 05:13 Temperature 101.9 F H 101 F H 99.3 F Pulse Rate 81 Respiratory Rate 16 Blood Pressure 135/69 Pulse Oximetry 99 06/25/19 05:14 06/25/19 09:00 Temperature 99.3 F 97.3 F L Pulse Rate 70 Respiratory Rate 16 Blood Pressure 80/48 L Pulse Oximetry 95 Oxygen Delivery Method Room Air Oxygen Flow Rate 0 Narrative Exam Narrative: Right knee wound is dressed with no drainage on the bandage. Calf is soft. Light touch and motion are intact in the right lower extremity. Objective Labs Result Diagrams: 06/23/19 05:55 Assessment & Plan Post-op Postoperative Procedures: Procedures Operation Date: 06/22/19 12:45 Actual Procedures Side Surgeon p *OPB* Total Knee Arthroplasty Right Jose F Siu MD Postoperative day: 3 Postoperative status: doing well and anemia Postoperative status narrative: The patient is stable postoperative day 3 status post right knee total knee replacement. 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 Patient lives in a recreational vehicle and has 5 fairly steep steps to get into the vehicle. He has not been able to master stairs as of yet. Postoperative plan: routine post-op care and ambulate Postoperative plan narrative: We will continue physical therapy. It is likely he will require [facility] facility placement. As it is a holiday today it is unlikely that will occur today. He will have physical therapy today. If he still has trouble with stairs by tomorrow he will be transferred to [facility] for rehab. He is aware that he will be seen by my partner in my absence tomorrow as it is a holiday weekend. Time Spent With Patient Time with patient: less than 15 minutes
--- NOTE | 2019-06-25 10:31 | PT.IPTN ---
Current Diagnoses Other chondrocalcinosis, unspecified site (06/23/19) Unilateral primary osteoarthritis, right knee (06/23/19) Surgery Performed Operation Date: 06/22/19 12:45 Actual Procedures p *OPB* Total Knee Arthroplasty(Right) - Jose F Siu MD Physical Therapy Treatment Note M2 PT-IP Current Condition Start: 06/23/19 10:34 Freq: NEEDED Status: Active Protocol: Document 06/23/19 12:00 AW (Rec: 06/23/19 12:51 AW [id number]) Physical Therapy Current Condition Current Condition Evaluation Date 06/23/19 Treatment Diagnosis R TKA, impaired mobility Onset Date 06/22/19 Weight Bearing Status Weight Bearing Status Weight Bear as Tolerated M3 PT-IP Subjective Start: 06/23/19 10:34 Freq: NEEDED Status: Active Protocol: Document 06/25/19 10:03 SP (Rec: 06/25/19 12:17 SP [id number]) Subjective Physical Therapy Visit Type Type Treatment Note Visit Start Time 10:03 Visit Stop Time 10:31 Total Visit Minutes 28 Number of LAB MANAGER Visits 1 Physical Therapy Visit Comments Patient Comments pt agreeable to do PT. Patient Goals Move his knee better and walk little further with . Therapy Pain Assessment Pain When Pain Assessed At Rest Pain Present Pain Present Pain Reported Location Right Knee Intensity 3 Scale Used Numeric (1 - 10) M4 PT-IP Mobility and Gait Start: 06/23/19 10:34 Freq: NEEDED Status: Active Protocol: Document 06/25/19 10:03 SP (Rec: 06/25/19 12:17 SP [id number]) PT-Bed Mobility Assessment Rolling Type of Rolling Roll to Right Level of Assist Standby Assistance Supine to Sit Supine to Sit Contact Guard Assistance, Minimal Assistance,Head of Bed Elevated Sit to Supine Sit to Supine Contact Guard Assistance Scooting Scooting to Edge of Bed Standby Assistance Scooting Up and Down in Bed Standby Assistance PT-Transfer Assessment Sit to and From Stand Sit to and from Stand Contact Guard Assistance,1 Person Assistance,Use of Upper Extremities Equipment Transfer Assistive Device Gait Belt,Front Wheeled Walker Orthotic/Prosthetic Devices or Brace: No Transfers Transfer Destination Bed,Chair Transfer Technique ambulated to the toilet using FWW Transfer Ability Level of Assist Contact Guard Assistance,1 Person Assistance,Use of Upper Extremities Comments Mobility Comments Completed caregiver training including BM, transfer, exercises. Checked R knee extension strength: 2+/5. Pt required decrease assist during bed mobility post education on use of gait belt for assist RLE repositioning CGA- min A provided for RLE repositioning by spouse during caregiver training. Gait Assessment Gait Gait Assistance Required: Contact Guard Assist,Minimum Assistance,1 Person Assist Distance (Feet) 24 Able to Maintain Weight Bearing Status Yes During Gait Assistive Devices Assistive Device Gait Belt,Front Wheeled Walker Orthotic/Prosthetic Devices or Brace: No Gait Deviations General Gait Pattern Antalgic,Decreased Stride Length,Decreased Feet Clearance Factors Limiting Gait Function Factors Limiting Gait Function Decreased Activity Tolerance, Decreased Strength,Limited Range of Motion,Pain,Poor Balance,Poor Safety Awareness Comments Gait Comments Complete caregiver training during gait providing CGA to Min A, cued spoues and patient knee flexion and heel toe RLE motion and quad contraction at midstance phase for decrease risk for buckling. Pt completed ambulation using FWW 10 ft, 24 ft in room, required 2 stops rests CGA to Min A and initially presents with decrease weight bearing on RLE with pt hopping using FWW. Educated pt on WB through RLE and activating quad muscles to stabilize while transitioning LLE. pt presents with unsteady gait with heavy use of UE on FWW for support. Pt presents with R knee buckling towards end of stance phase and required LAB MANAGER/spouse to stabilize requiring min A and cues for safety. Stair Climbing Assessment Comments Stair Climbing Comments Unable to assess today secondary to minimal WB noted on RLE, I can't do it right now for sure, we can try in the afternoon. PT-Balance Assessment Sitting Balance and Reactions Static Sitting Balance Ability Normal Dynamic Sitting Balance Ability Good Standing Balance and Reactions Static Standing Balance Ability Fair Dynamic Standing Balance Ability Poor Device Used FWW M5 PT-IP Objective Assessments Start: 06/23/19 10:34 Freq: NEEDED Status: Active Protocol: Document 06/23/19 12:00 AW (Rec: 06/23/19 12:51 AW [id number]) Orientation Orientation/Cognition Level of Alertness Alert Orientation Name,Day of Week,Place, Situation Language Function Ability No Deficits Noted Safety Awareness Understands Safety Issues Memory Description No Deficits Noted Gross Range of Motion Upper Extremity ROM Assessment Within Functional Limits Lower Extremity ROM Assessment Right Impaired Strength Upper Extremity Strength Assessment Within Functional Limits Lower Extremity Strength Assessment Right Impaired Comments Strength Comments BUE and LLE 4+/5 grossly Sensation Assessment Sensation Gross Sensation WNL M6 PT-IP Treatment Start: 06/23/19 10:34 Freq: NEEDED Status: Active Protocol: Document 06/25/19 10:03 SP (Rec: 06/25/19 12:17 SP [id number]) Physical Therapy Treatment Exercises Exercises Quad Sets,Heel Slides,Supine Hip Abduction,Seated Knee Flexion/Extension M7 PT-IP Assessment and Plan Start: 06/23/19 10:34 Freq: NEEDED Status: Active Protocol: Document 06/25/19 10:03 SP (Rec: 06/25/19 12:19 SP [id number]) PT Summary Assessment and Plan Potential Rehabilitation Potential Good Status of Condition at Evaluation Evolving Summary Impairments Pain,ROM,Strength,Balance, Coordination,Bed Mobility, Transfers,Gait,Activity Tolerance Progress Towards Goals Slow Progress due to Pain,Slow Progress due to Medical Issues,Slow Progress due to Activity Tolerance Assessment Summary pt requires CGA to min A with ambulation using FWW and unable to tolerate much with c /o back pain. pt presents with unsteady gait with heavy use of BUE for support, decrease RLE weight bearing with buckling towards end phase of stance. pt also has RLE weakness with quad strength of 2+/5 and at this not is not appropriate to do stair climbing. pt has 5 steps to enter the house and is not able to do steps currently. pt will require SNF rehab to improve strength and functional independence prior to d/c home. Goals Bed Mobility Goal Standby Assistance Transfer Goal Standby Assistance,Front Wheeled Walker Gait Goal Standby Assistance,Front Wheel Walker,Simone Walker Gait Distance 75 Other Goals up/down 5 steps with bilateral rails SBA. Days to Meet Goals 5 Frequency of Treatment Frequency Of Treatment Twice a Day Treatment Plan Physical Therapy Treatment Plan Bed Mobility Training,Transfer Training,Gait Training, Therapeutic Exercise,Balance Retraining,Post Op Education, Discharge Planning,Hot or Cold Pack,Neuromuscular Re-ed, Coordination Retraining,Manual Therapy Other Recommendations and Next Treatment LE exercises, ambulation Focus Recommendations To Nursing Amount of Assist Needed 1 Person Assist Discharge Recommendations PT Discharge Recommendations SNF Rehab
[2019-06-25] MEDS: OXYCODONE IR 10 MG TABLET PO ×2 (12:26→21:56)
--- NOTE | 2019-06-25 14:32 | PC.NURSE ---
Pain/Mobility: Pt still having problems trying to find what is working best for him for pain control. Reviewed pain med regime. Pt reports vistaril has been effective but can only have it 3 times a day. Toradol does help. Not sure if dilaudid is working well for him or not. Discussed w/md and vistaril increased to q4hrs and pt has had 2 doses on this shift, toradol x1 and he says both of these have helped. Dilaudid was given this am and he wasn't sure if the oxycodone would be a better choice, there fore oxycodone was given this afternoon. He reported his pain was 0-1/10 after med and was able to work with physical therapy. he understands it is his choice whether to take dilaudid vs oxy and he says he will think about what he would like to do. Mobility ortiz pt is quite weak on the rt leg, he reports it feels like his leg is water and has no strength. When up his leg tends to buckle and it is hard for him to bear weight and he doesn't want to fall. Has a hx of back injury and surgery. This is impacting his mobility as well. Fall potential remains high due to the weakness to his right leg and buckling. Cont w/poc.
--- NOTE | 2019-06-25 14:38 | PT.IPTN ---
Current Diagnoses Other chondrocalcinosis, unspecified site (06/23/19) Unilateral primary osteoarthritis, right knee (06/23/19) Surgery Performed Operation Date: 06/22/19 12:45 Actual Procedures p *OPB* Total Knee Arthroplasty(Right) - Jose F Siu MD Physical Therapy Treatment Note M2 PT-IP Current Condition Start: 06/23/19 10:34 Freq: NEEDED Status: Active Protocol: Document 06/23/19 12:00 AW (Rec: 06/23/19 12:51 AW [id number]) Physical Therapy Current Condition Current Condition Evaluation Date 06/23/19 Treatment Diagnosis R TKA, impaired mobility Onset Date 06/22/19 Weight Bearing Status Weight Bearing Status Weight Bear as Tolerated M3 PT-IP Subjective Start: 06/23/19 10:34 Freq: NEEDED Status: Active Protocol: Document 06/25/19 14:10 SP (Rec: 06/25/19 15:07 SP [id number]) Subjective Physical Therapy Visit Type Type Treatment Note Visit Start Time 14:10 Visit Stop Time 14:38 Total Visit Minutes 28 Number of MARINE PHOTOGRAPHER Visits 2 Physical Therapy Visit Comments Patient Comments Pt agreeable to work with PT. Patient Goals Walk further in hallway. Therapy Pain Assessment Pain Present Pain Present Denied Pain M4 PT-IP Mobility and Gait Start: 06/23/19 10:34 Freq: NEEDED Status: Active Protocol: Document 06/25/19 14:10 SP (Rec: 06/25/19 15:07 SP [id number]) PT-Bed Mobility Assessment Rolling Type of Rolling Roll to Left Supine to Sit Supine to Sit Minimal Assistance,Bedrails Sit to Supine Sit to Supine Standby Assistance,Bedrails Scooting Scooting to Edge of Bed Standby Assistance Scooting Up and Down in Bed Standby Assistance PT-Transfer Assessment Sit to and From Stand Sit to and from Stand Contact Guard Assistance,Use of Upper Extremities Equipment Transfer Assistive Device Gait Belt,Front Wheeled Walker Orthotic/Prosthetic Devices or Brace: No Transfers Transfer Destination Bed Transfer Technique ambulated using FWW Transfer Ability Level of Assist Contact Guard Assistance,1 Person Assistance,Use of Upper Extremities Comments Mobility Comments Pt was laying in bed when arrived. Pt was able to complete supine >sitting CGA to Min A and cuing for LUE pressure to right trunk to sitting, patient used of gait to self reposition RLE in /out bed. Supine>sitting SBA with gait belt to self reposition RLE and bed rail support. Gait Assessment Gait Gait Assistance Required: Contact Guard Assist,1 Person Assist Distance (Feet) 50 Able to Maintain Weight Bearing Status Yes During Gait Assistive Devices Assistive Device Gait Belt,Front Wheeled Walker Orthotic/Prosthetic Devices or Brace: No Gait Deviations General Gait Pattern Antalgic,Decreased Stride Length,Decreased Feet Clearance Factors Limiting Gait Function Factors Limiting Gait Function Decreased Activity Tolerance, Decreased Strength,Limited Range of Motion,Pain,Poor Balance,Poor Safety Awareness Comments Gait Comments Pt was able to tolerate further distance 50 ft CGA using FWW and w/c follow, noted improvement in RLE WB while LLE advancement ( repositioned L heel even with R forefoot) for first 5 ft then decreases to step to gait feet even with each other. Pt required 3 stop standing rests during 50ft distance then needed seated rest for recovery. Pt was able to complete full 50 ft distance back to room without stopped stand or seated rest. Pt continued to demonstrate unsteady gait with heavy BUE WB on FWW. Trialed standing wt shift between LE during standing rests with cuing for quad activation RLE and patient's knee buckled during 3 rep and required the seated rest for safety recovery. Stair Climbing Assessment Comments Stair Climbing Comments Unable to assess stair mgt secondary to safety concerns of R knee buckling during standing. PT-Balance Assessment Sitting Balance and Reactions Static Sitting Balance Ability Normal Dynamic Sitting Balance Ability Good Standing Balance and Reactions Static Standing Balance Ability Fair Dynamic Standing Balance Ability Fair Device Used FWW M5 PT-IP Objective Assessments Start: 06/23/19 10:34 Freq: NEEDED Status: Active Protocol: Document 06/23/19 12:00 AW (Rec: 06/23/19 12:51 AW [id number]) Orientation Orientation/Cognition Level of Alertness Alert Orientation Name,Day of Week,Place, Situation Language Function Ability No Deficits Noted Safety Awareness Understands Safety Issues Memory Description No Deficits Noted Gross Range of Motion Upper Extremity ROM Assessment Within Functional Limits Lower Extremity ROM Assessment Right Impaired Strength Upper Extremity Strength Assessment Within Functional Limits Lower Extremity Strength Assessment Right Impaired Comments Strength Comments BUE and LLE 4+/5 grossly Sensation Assessment Sensation Gross Sensation WNL M6 PT-IP Treatment Start: 06/23/19 10:34 Freq: NEEDED Status: Active Protocol: Document 06/25/19 14:10 SP (Rec: 06/25/19 15:07 SP [id number]) Physical Therapy Treatment Exercises Exercises Ankle Pumps,Gluteal Sets,Quad Sets,Heel Slides,Seated Knee Flexion/Extension Education Education Provided Weight Bearing Status,Safety M7 PT-IP Assessment and Plan Start: 06/23/19 10:34 Freq: NEEDED Status: Active Protocol: Document 06/25/19 14:10 SP (Rec: 06/25/19 15:07 SP [id number]) PT Summary Assessment and Plan Potential Rehabilitation Potential Good Status of Condition at Evaluation Evolving Summary Impairments Pain,ROM,Strength,Balance, Coordination,Bed Mobility, Transfers,Gait,Activity Tolerance Progress Towards Goals Slow Progress due to Pain,Slow Progress due to Medical Issues,Slow Progress due to Activity Tolerance Assessment Summary pt requires CGA to min A with ambulation using FWW and unable to tolerate much with c /o back pain. pt presents with unsteady gait with heavy use of BUE for support, decrease RLE weight bearing with buckling towards end phase of stance. pt also has RLE weakness with quad strength of 2+/5 and at this not is not appropriate to do stair climbing. pt has 5 steps to enter the house and is not able to do steps currently. pt will require SNF rehab to improve strength and functional independence prior to d/c home. Goals Bed Mobility Goal Standby Assistance Transfer Goal Standby Assistance,Front Wheeled Walker Gait Goal Standby Assistance,Front Wheel Walker,Simone Walker Gait Distance 75 Other Goals up/down 5 steps with bilateral rails SBA. Days to Meet Goals 5 Frequency of Treatment Frequency Of Treatment Twice a Day Treatment Plan Physical Therapy Treatment Plan Bed Mobility Training,Transfer Training,Gait Training, Therapeutic Exercise,Balance Retraining,Post Op Education, Discharge Planning,Hot or Cold Pack,Neuromuscular Re-ed, Coordination Retraining,Manual Therapy Other Recommendations and Next Treatment LE exercises, ambulation Focus Recommendations To Nursing Amount of Assist Needed 1 Person Assist Discharge Recommendations PT Discharge Recommendations SNF Rehab
--- NOTE | 2019-06-25 20:55 | PC.NURSE ---
Sherin shift note: Patient alert and pleasant. RLE with mild edema to inner right knee 1+, elevated on 2 pillows. SHORTY Ruth. Refusing SCD to RLE for long periods of time, will tolerate for short while. Pain controlled with prescribed medications and positioning. Calls appropriately for staff assistance, bed alarm active.
[2019-06-26] VITALS: BP 96/53; PULSE 78; RESP 18; TEMP 36.9; O2SAT 97
[2019-06-26] MEDS: OXYCODONE IR 10 MG TABLET PO (01:04)
[2019-06-26] MEDS: hydrOXYzine pamoate 25 MG CAPSULE PO ×3 (01:05→13:26)
--- NOTE | 2019-06-26 01:17 | PC.NURSE ---
Addendum entered by Jacqueline Baxter R.N. 06/26/19 04:40: Relief obtained with Toradol but currently still 3/10 so medicated with Dilaudid per patient request. Addendum entered by Jacqueline Baxter R.N. 06/26/19 02:42: Continuing to have pain and states now up to 4/10 so medicated with IV Toradol. Patient had removed SCD's as he states the pumping action is making the pain worse. Original Note: Patient is alert and oriented. Breath sounds CTA with RA sat of 97%. HRR. BP low at 96/53 but is asymptomatic; continue to monitor. Denies nausea. BT present and is passing flatus. Voiding per urinal without dysuria, frequency or urgency. Able to move self in bed. Gait not assessed as not out of bed at this time, but reportedly walks with walker and 1 assist. Dressing to right knee is CDI. Right knee remains pink, warm and swollen. States pain is currently 3/10 and requests 10mg Oxycodone + Vistaril to maintain adequate pain control. Ice applied for additional comfort. CMS intact except for chronic left leg neuropathy. Is unable to lift right leg off bed but is able to move it. Right leg is elevated on several pillows. Wearing bilateral calf SCD's. Fall risk score is moderate; bed alarm is activated.
[2019-06-26] MEDS: KETOROLAC 30 MG/ML VIAL IV ×3 (02:37→14:55)
[2019-06-26] MEDS: SODIUM CHLORIDE 0.9% FLUSH 10 ML IV ×2 (02:38→07:48)
[2019-06-26 03:10] VITALS: BP 117/74; PULSE 74; RESP 16; TEMP 37.1; O2SAT 97
[2019-06-26] MEDS: HYDROMORPHONE 2 MG TABLET PO ×3 (04:38→13:26)
[2019-06-26] MEDS: ATORVASTATIN 20 MG TABLET 40 MG PO (07:45)
[2019-06-26] MEDS: ASPIRIN EC 81 MG TABLET PO (07:45)
[2019-06-26] MEDS: LISINOPRIL 20 MG TABLET PO (07:45)
[2019-06-26] MEDS: ACETAMINOPHEN 325 MG TABLET 975 MG PO ×2 (07:45→13:26)
[2019-06-26] MEDS: DOCUSATE 100 MG CAPSULE PO (07:46)
[2019-06-26] MEDS: ALLOPURINOL 100 MG TABLET PO (07:46)
[2019-06-26] MEDS: METFORMIN HCL 500 MG TABLET PO (07:46)
[2019-06-26] MEDS: ATENOLOL 50 MG TABLET PO (07:46)
[2019-06-26] MEDS: hydroCHLOROthiazide 25 MG TABLET PO (07:48)
[2019-06-26 08:05] VITALS: BP 108/70; PULSE 74; RESP 17; TEMP 37; O2SAT 97
--- NOTE | 2019-06-26 09:41 | OT.IP.TRT ---
Current Diagnoses Other chondrocalcinosis, unspecified site (06/25/19) Unilateral primary osteoarthritis, right knee (06/25/19) Surgery Performed Operation Date: 06/22/19 12:45 Actual Procedures p *OPB* Total Knee Arthroplasty(Right) - Jose F Siu MD Occupational Therapy Treatment Note M2 OT-IP Current Condition Start: 06/24/19 13:42 Freq: Status: Active Protocol: Document 06/24/19 13:43 CCC (Rec: 06/24/19 14:03 [facility] [id number]) Occupational Therapy Current Condition Current Condition Evaluation Date 06/24/19 Treatment Diagnosis Right knee Osteoarthritis/ s/p R TKA, decreased mobility Weight Bearing Status Weight Bearing Status Weight Bear as Tolerated M3 OT- IP Subjective and Pain Start: 06/24/19 13:42 Freq: Status: Active Protocol: Document 06/26/19 09:41 [facility] (Rec: 06/26/19 10:05 [facility] [id number]) OT- Subjective Occupational Therapy Visit Type Type Treatment Note Visit Start Time 08:55 Visit Stop Time 09:39 Total Visit Minutes 44 Occupational Therapy Visit Comments Patient Comments Pt agreed to take a shower and also wanting to have a bowel movement. Patient/Caregiver Goals Pt wanting to go home but still uncertain if able to do the steps to get into the house. OT Pain Assessment Pain When Pain Assessed At Rest Pain Present Pain Present Pain Reported Location Right Knee Intensity 2 Scale Used Numeric (1 - 10) M4 OT- IP ADL's Start: 06/24/19 13:42 Freq: Status: Active Protocol: Document 06/26/19 09:41 [facility] (Rec: 06/26/19 10:05 [facility] [id number]) OT [id number] Comments OT Self-Feeding Comments Not at meal time. OT ADL-Dressing General Eval Upper Body Dressing Ability Independent Lower Body Dressing Ability Moderate Assistance Areas Needing Assistance Retrieving/Set-up of Clothing, Underpants/Brief Assistive Devices Dressing Assistive Devices Manufacturing Development Engineer Comments OT Dressing Comments Pt able to use sign fabricator to doff socks and needing GALO to help get brief over right foot and then GALO to stand with grab bar and then MODA to help pull up brief in the back. OT ADL-Toileting General Evaluation Toileting Ability Maximum Assistance Areas Needing Assistance Perform Perineal Hygiene Devices Toileting Assistive Devices Commode Comments OT Toileting Comments Pt continues to need MAX A for completeness to wipe after a bowel movement. Edcuated to pt may benefit from toilet aid . Pt states will just have to assist him. OT ADL-Bathing Bathing Type Bathing Type Shower General Evaluation Bathing Ability Moderate Assistance Areas Needing Assistance Wash/Dry Back,Wash/Dry Perineal Area,Wash/Dry Lower Extremities Devices Bathing Equipment Hand Held Shower Sprayer, Shower Chair with Arms,Grab Bars Comments OT Bathing Comments Pt needing assist to dry his feet, wash/dry his back and pericare needs. While standing pt heavily relies on the grab bars for balance while standing and needing CGA /GALO. M5 OT- IP IADL's Start: 06/24/19 13:42 Freq: Status: Active Protocol: Document 06/24/19 13:43 [facility] (Rec: 06/24/19 14:03 [facility] [id number]) OT-Instrumental Activities of Daily Living Home Safety Awareness Home Safety Comments Pt's unable to provide physical assist to pt at this time, however able to assist for IADl needs and minimally for ADL needs. Medication Management Medication Management No Deficits Identified Meal Preparation Meal Preparation Caregiver Provides Assist M6 OT- IP Functional Cognition Start: 06/24/19 13:42 Freq: Status: Active Protocol: Document 06/26/19 09:41 [facility] (Rec: 06/26/19 10:05 [facility] [id number]) Cognitive Factors Limiting Selfcare Function Cognitive Ability Level of Alertness Alert Patient Orientation Name,Place,Situation Attention Span Ability Capable of Focused Attention, Capable of Sustained Attention Ability to Follow Commands Able to Follow Multi-Step Commands Memory Description No Deficits Noted Safety Awareness Underestimates Need for Assistance Problem Solving Ability Needs Assist to Identify Solutions Cognitive Comments Cognitive Assessment Comments Pt needing vc to slow down and wait for assistance as needed . Pt tends to be slightly impulsive, trying to stand without the walker in front of him. M7 OT- IP Mobility and Balance Start: 06/24/19 13:42 Freq: Status: Active Protocol: Document 06/26/19 09:41 [facility] (Rec: 06/26/19 10:05 [facility] [id number]) OT- Bed Mobility Assessment Rolling Type of Rolling Roll to Left Supine to Sit Supine to Sit Assist Standby Assistance,Head of Bed Elevated Sit to Supine Sit to Supine Assist Standby Assistance OT-Transfer Assessment Sit to and From Stand Sit to and from Stand Contact Guard Assistance,1 Person Assistance Transfers Transfer Ability Minimal Assistance Technique Transfer Destination Bed,Bedside Commode,Shower Stall Transfer Technique Stand Step Pivot Devices Transfer Assistive Devices Gait Belt,Front Wheeled Walker Comments Mobility Comments Pt still having difficulty to lift his RLE while in supine in the bed for bed mobility and needing use of gait belt strap to help his RLE get to the edge of the bed. Pt CGA to stand to FWW, however from lower surfaces needing MODA to stand. Pt able to put some weight on his RLE while walking to the bathroom with FWW. Pt still compensates by heavily relying on this BUE on the handles of his FWW to help advance the RLE and to help slide over the threshold of the shower and needing GALO for balance from therapist for safety. OT- Balance Assessment Sitting Balance and Reactions Static Sitting Balance Ability Normal Dynamic Sitting Balance Ability Good Standing Balance and Reactions Static Standing Balance Ability Fair Dynamic Standing Balance Ability Poor M8 OT- IP Objective Assessments Start: 06/24/19 13:42 Freq: Status: Active Protocol: Document 06/24/19 13:43 CCC (Rec: 06/24/19 14:03 [facility] [id number]) OT Gross Range of Motion Upper Extremity Range of Motion Assessment Within Functional Limits OT Strength Upper Extremity Strength Assessment Within Functional Limits OT-Muscle Tone Assessment Muscle Tone WNL Yes M9 OT- IP Assessment and Plan Start: 06/24/19 13:42 Freq: Status: Active Protocol: Document 06/26/19 09:41 [facility] (Rec: 06/26/19 10:05 [facility] [id number]) OT Summary Assessment and Plan Potential Rehabilitation Potential Good Analytic Complexity at Evaluation Low Summary OT Impairments Pain,Balance,Functional Mobility,Dressing,Toileting, Bathing,Toilet Transfers, Shower Transfers Progress Towards Goals Progressing Toward Goals Assessment Summary Pt improving with overall functional ADl and mobility needs. Pt still compensates with use of BUE on FWW to help move his RLE and still has concerns about getting into his trailer via 5 steps. Pt will continue to benefit from short skilled rehab to improve his independence with ADl's needs as the strength and AROM improve with RLE. Goals Self-Feeding Goal Independent Grooming Goal Independent Dressing Goal Standby Assistance Toileting Goal Standby Assistance Bathing Goal Minimal Assistance Toilet Transfer Goal Independent Shower Transfer Goal Standby Assistance Patient/Caregiver Education Goal Demonstrate Post-Op Precautions,Caregiver Independent Assisting Patient Days to Meet Goals 5 Frequency of Treatment Frequency Of Treatment Once a Day Treatment Plan OT Treatment Plan ADL Training,Functional Mobility,Patient/Family Education,Discharge Planning Discharge Recommendations OT Discharge Recommendations SNF Rehab Home Equipment Needs Shower chair, BSC
--- NOTE | 2019-06-26 10:53 | PT.IPTN ---
Current Diagnoses Other chondrocalcinosis, unspecified site (06/25/19) Unilateral primary osteoarthritis, right knee (06/25/19) Surgery Performed Operation Date: 06/22/19 12:45 Actual Procedures p *OPB* Total Knee Arthroplasty(Right) - Jose F Siu MD Physical Therapy Treatment Note M2 PT-IP Current Condition Start: 06/23/19 10:34 Freq: NEEDED Status: Active Protocol: Document 06/23/19 12:00 AW (Rec: 06/23/19 12:51 AW [id number]) Physical Therapy Current Condition Current Condition Evaluation Date 06/23/19 Treatment Diagnosis R TKA, impaired mobility Onset Date 06/22/19 Weight Bearing Status Weight Bearing Status Weight Bear as Tolerated M3 PT-IP Subjective Start: 06/23/19 10:34 Freq: NEEDED Status: Active Protocol: Document 06/26/19 10:10 SP (Rec: 06/26/19 11:42 SP [id number]) Subjective Physical Therapy Visit Type Type Treatment Note Visit Start Time 10:10 Visit Stop Time 10:53 Total Visit Minutes 43 Number of CASE OPERATOR Visits 3 Physical Therapy Visit Comments Patient Comments Pt agreeable to work with PT. Patient Goals Assess stairs today. Therapy Pain Assessment Pain Present Pain Present Denied Pain M4 PT-IP Mobility and Gait Start: 06/23/19 10:34 Freq: NEEDED Status: Active Protocol: Document 06/26/19 10:10 SP (Rec: 06/26/19 11:42 SP [id number]) PT-Bed Mobility Assessment Rolling Type of Rolling Roll to Right Level of Assist Standby Assistance Supine to Sit Supine to Sit Standby Assistance,Bedrails Sit to Supine Sit to Supine Standby Assistance,Bedrails Scooting Scooting to Edge of Bed Standby Assistance Scooting Up and Down in Bed Standby Assistance PT-Transfer Assessment Sit to and From Stand Sit to and from Stand Contact Guard Assistance,Use of Upper Extremities Equipment Transfer Assistive Device Gait Belt,Front Wheeled Walker Orthotic/Prosthetic Devices or Brace: No Transfers Transfer Destination Bed Transfer Technique ambulated with FWW Transfer Ability Level of Assist Contact Guard Assistance,1 Person Assistance,Use of Upper Extremities Comments Mobility Comments Pt was laying in bed when arrived. Pt was able to complete supine <> sitting with HOB elevated with use of bed rails and gait belt to slef assist RLE repositioning in/out bed SBA. Pt was able to sit to stand CGA using FWW with use good BUE placement from EOB then ambulate to hallway, step pivot to w/c. Pt was able to bend R knee approx 100* on foot plate in w /c with Min A. Improved quad activation and steady R knee extension during WB. Gait Assessment Gait Gait Assistance Required: Contact Guard Assist,1 Person Assist Distance (Feet) 57 Able to Maintain Weight Bearing Status Yes During Gait Assistive Devices Assistive Device Gait Belt,Front Wheeled Walker Orthotic/Prosthetic Devices or Brace: No Gait Deviations General Gait Pattern Antalgic,Decreased Stride Length,Decreased Feet Clearance Factors Limiting Gait Function Factors Limiting Gait Function Decreased Activity Tolerance, Decreased Strength,Limited Range of Motion,Pain,Poor Balance,Poor Safety Awareness Comments Gait Comments Pt was able to ambulate further distance today with only 1 stopped standing rest break using FWW CGA by and w/c follow secondary to decreased strength and activity tolerance, improved from yesterday. Pt demonstrated improved quad activation during WB through RLE, no unsteadiness or buckling during LLE advancement but reported and demonstrated leaning on FWW during stopped rest secondary to BUE tiring as distance progressed. Initially modified step through foot patterning (L foot heel lined up with RLE forefoot) but as tired decreases to step to gait.Pt continued require cuing for knee flexion and heel toe gait to progress normal patterning . Stair Climbing Assessment Evaluation Level of Assist On Stairs Contact Guard Assistance, Minimal Assistance,1 Person Assistance Devices Stair Climbing Assistive Devices Axillary Crutches,Right Railing Technique/Endurance Stair Climbing Direction Ascend and Descend Stair Climbing Technique Step to Step Number of Steps Climbed 3 Stair Climbing Set # Repetitions (reps) 2 Comments Stair Climbing Comments Pt was able to complete 3 stairs x2 sets Min A of 1 required with axillary crutch in LUE and RHR, therapist assist during first set and second. Pt performed step to gait patterning LLE leading ascending RLE leading descending therapist provided then with instruction positioning contact support anterior R knee (with our knee ) to prevent buckling of R knee during LLE transitioning to step for safety, not needed . Patient was initially anxious about stair management but able to complete with no R knee buckling or LOB. PT-Balance Assessment Sitting Balance and Reactions Static Sitting Balance Ability Normal Dynamic Sitting Balance Ability Good Standing Balance and Reactions Static Standing Balance Ability Fair Dynamic Standing Balance Ability Fair Device Used FWW M5 PT-IP Objective Assessments Start: 06/23/19 10:34 Freq: NEEDED Status: Active Protocol: Document 06/23/19 12:00 AW (Rec: 06/23/19 12:51 AW [id number]) Orientation Orientation/Cognition Level of Alertness Alert Orientation Name,Day of Week,Place, Situation Language Function Ability No Deficits Noted Safety Awareness Understands Safety Issues Memory Description No Deficits Noted Gross Range of Motion Upper Extremity ROM Assessment Within Functional Limits Lower Extremity ROM Assessment Right Impaired Strength Upper Extremity Strength Assessment Within Functional Limits Lower Extremity Strength Assessment Right Impaired Comments Strength Comments BUE and LLE 4+/5 grossly Sensation Assessment Sensation Gross Sensation WNL M6 PT-IP Treatment Start: 06/23/19 10:34 Freq: NEEDED Status: Active Protocol: Document 06/26/19 10:10 SP (Rec: 06/26/19 11:42 SP [id number]) Physical Therapy Treatment Education Education Provided Weight Bearing Status,Safety Other Treatments Other Treatment Performed Review post op exercises for HEP. M7 PT-IP Assessment and Plan Start: 06/23/19 10:34 Freq: NEEDED Status: Active Protocol: Document 06/26/19 10:10 SP (Rec: 06/26/19 11:42 SP [id number]) PT Summary Assessment and Plan Potential Rehabilitation Potential Good Status of Condition at Evaluation Evolving Summary Impairments Pain,ROM,Strength,Balance, Coordination,Bed Mobility, Transfers,Gait,Activity Tolerance Progress Towards Goals Slow Progress due to Pain,Slow Progress due to Medical Issues,Slow Progress due to Activity Tolerance Assessment Summary Pt required SBA for bed mobility and CGA during transfers and gait using FWW. CGA to Min A during stair managment using L crutch and R HR step to patterning. was able to assist patient during all mobilty, provided cuing for safety positioning and suggested provide reminders of R knee flexion/ heel toe positioning to progress normal gait. Pt was laying in bed with all needs within reach and provided cold pack per request, no pain reported throughout all mobility just reported anxiousness/ uncertainty. Goals Bed Mobility Goal Standby Assistance Transfer Goal Standby Assistance,Front Wheeled Walker Gait Goal Standby Assistance,Front Wheel Walker,Simone Walker Gait Distance 75 Other Goals up/down 5 steps with bilateral rails SBA. Days to Meet Goals 5 Frequency of Treatment Frequency Of Treatment Twice a Day Treatment Plan Physical Therapy Treatment Plan Bed Mobility Training,Transfer Training,Gait Training, Therapeutic Exercise,Balance Retraining,Post Op Education, Discharge Planning,Hot or Cold Pack,Neuromuscular Re-ed, Coordination Retraining,Manual Therapy Other Recommendations and Next Treatment LE exercises, ambulation Focus Recommendations To Nursing Amount of Assist Needed Standby Assistance,1 Person Assist Discharge Recommendations PT Discharge Recommendations Home with Assistance, Outpatient PT
--- NOTE | 2019-06-26 10:53 | PT.IPTN ---
Current Diagnoses Other chondrocalcinosis, unspecified site (06/25/19) Unilateral primary osteoarthritis, right knee (06/25/19) Surgery Performed Operation Date: 06/22/19 12:45 Actual Procedures p *OPB* Total Knee Arthroplasty(Right) - Jose F Siu MD Physical Therapy Treatment Note M2 PT-IP Current Condition Start: 06/23/19 10:34 Freq: NEEDED Status: Active Protocol: Document 06/23/19 12:00 AW (Rec: 06/23/19 12:51 AW [id number]) Physical Therapy Current Condition Current Condition Evaluation Date 06/23/19 Treatment Diagnosis R TKA, impaired mobility Onset Date 06/22/19 Weight Bearing Status Weight Bearing Status Weight Bear as Tolerated M3 PT-IP Subjective Start: 06/23/19 10:34 Freq: NEEDED Status: Active Protocol: Document 06/26/19 10:10 SP (Rec: 06/26/19 11:42 SP [id number]) Subjective Physical Therapy Visit Type Type Treatment Note Visit Start Time 10:10 Visit Stop Time 10:53 Total Visit Minutes 43 Number of PSYCHIATRIC RN Visits 3 Physical Therapy Visit Comments Patient Comments Pt agreeable to work with PT. Patient Goals Assess stairs today. Therapy Pain Assessment Pain Present Pain Present Denied Pain M4 PT-IP Mobility and Gait Start: 06/23/19 10:34 Freq: NEEDED Status: Active Protocol: Document 06/26/19 10:10 SP (Rec: 06/26/19 11:42 SP [id number]) PT-Bed Mobility Assessment Rolling Type of Rolling Roll to Right Level of Assist Standby Assistance Supine to Sit Supine to Sit Standby Assistance,Bedrails Sit to Supine Sit to Supine Standby Assistance,Bedrails Scooting Scooting to Edge of Bed Standby Assistance Scooting Up and Down in Bed Standby Assistance PT-Transfer Assessment Sit to and From Stand Sit to and from Stand Contact Guard Assistance,Use of Upper Extremities Equipment Transfer Assistive Device Gait Belt,Front Wheeled Walker Orthotic/Prosthetic Devices or Brace: No Transfers Transfer Destination Bed Transfer Technique ambulated with FWW Transfer Ability Level of Assist Contact Guard Assistance,1 Person Assistance,Use of Upper Extremities Comments Mobility Comments Pt was laying in bed when arrived. Pt was able to complete supine <> sitting with HOB elevated with use of bed rails and gait belt to slef assist RLE repositioning in/out bed SBA. Pt was able to sit to stand CGA using FWW with use good BUE placement from EOB then ambulate to hallway, step pivot to w/c. Pt was able to bend R knee approx 100* on foot plate in w /c with Min A. Improved quad activation and steady R knee extension during WB. Gait Assessment Gait Gait Assistance Required: Contact Guard Assist,1 Person Assist Distance (Feet) 57 Able to Maintain Weight Bearing Status Yes During Gait Assistive Devices Assistive Device Gait Belt,Front Wheeled Walker Orthotic/Prosthetic Devices or Brace: No Gait Deviations General Gait Pattern Antalgic,Decreased Stride Length,Decreased Feet Clearance Factors Limiting Gait Function Factors Limiting Gait Function Decreased Activity Tolerance, Decreased Strength,Limited Range of Motion,Pain,Poor Balance,Poor Safety Awareness Comments Gait Comments Pt was able to ambulate further distance today with only 1 stopped standing rest break using FWW CGA by and w/c follow secondary to decreased strength and activity tolerance, improved from yesterday. Pt demonstrated improved quad activation during WB through RLE, no unsteadiness or buckling during LLE advancement but reported and demonstrated leaning on FWW during stopped rest secondary to BUE tiring as distance progressed. Initially modified step through foot patterning (L foot heel lined up with RLE forefoot) but as tired decreases to step to gait.Pt continued require cuing for knee flexion and heel toe gait to progress normal patterning . Stair Climbing Assessment Evaluation Level of Assist On Stairs Contact Guard Assistance, Minimal Assistance,1 Person Assistance Devices Stair Climbing Assistive Devices Axillary Crutches,Right Railing Technique/Endurance Stair Climbing Direction Ascend and Descend Stair Climbing Technique Step to Step Number of Steps Climbed 3 Stair Climbing Set # Repetitions (reps) 2 Comments Stair Climbing Comments Pt was able to complete 3 stairs x2 sets Min A of 1 required with axillary crutch in LUE and RHR, therapist assist during first set and second. Pt performed step to gait patterning LLE leading ascending RLE leading descending therapist provided then with instruction positioning contact support anterior R knee (with our knee ) to prevent buckling of R knee during LLE transitioning to step for safety, not needed . Patient was initially anxious about stair management but able to complete with no R knee buckling or LOB. PT-Balance Assessment Sitting Balance and Reactions Static Sitting Balance Ability Normal Dynamic Sitting Balance Ability Good Standing Balance and Reactions Static Standing Balance Ability Fair Dynamic Standing Balance Ability Fair Device Used FWW M5 PT-IP Objective Assessments Start: 06/23/19 10:34 Freq: NEEDED Status: Active Protocol: Document 06/23/19 12:00 AW (Rec: 06/23/19 12:51 AW [id number]) Orientation Orientation/Cognition Level of Alertness Alert Orientation Name,Day of Week,Place, Situation Language Function Ability No Deficits Noted Safety Awareness Understands Safety Issues Memory Description No Deficits Noted Gross Range of Motion Upper Extremity ROM Assessment Within Functional Limits Lower Extremity ROM Assessment Right Impaired Strength Upper Extremity Strength Assessment Within Functional Limits Lower Extremity Strength Assessment Right Impaired Comments Strength Comments BUE and LLE 4+/5 grossly Sensation Assessment Sensation Gross Sensation WNL M6 PT-IP Treatment Start: 06/23/19 10:34 Freq: NEEDED Status: Active Protocol: Document 06/26/19 10:10 SP (Rec: 06/26/19 11:42 SP [id number]) Physical Therapy Treatment Education Education Provided Weight Bearing Status,Safety Other Treatments Other Treatment Performed Review post op exercises for HEP. M7 PT-IP Assessment and Plan Start: 06/23/19 10:34 Freq: NEEDED Status: Active Protocol: Document 06/26/19 10:10 SP (Rec: 06/26/19 11:42 SP [id number]) PT Summary Assessment and Plan Potential Rehabilitation Potential Good Status of Condition at Evaluation Evolving Summary Impairments Pain,ROM,Strength,Balance, Coordination,Bed Mobility, Transfers,Gait,Activity Tolerance Progress Towards Goals Slow Progress due to Pain,Slow Progress due to Medical Issues,Slow Progress due to Activity Tolerance Assessment Summary Pt required SBA for bed mobility and CGA during transfers and gait using FWW. CGA to Min A during stair managment using L crutch and R HR step to patterning. was able to assist patient during all mobilty, provided cuing for safety positioning and suggested provide reminders of R knee flexion/ heel toe positioning to progress normal gait. Pt was laying in bed with all needs within reach and provided cold pack per request, no pain reported throughout all mobility just reported anxiousness/ uncertainty. Pt may go home when medically stable. Pt plans to go home with to assist him. Recommend home with assistance , outpatient rehab to improve strength, ROM and independence. Goals Bed Mobility Goal Standby Assistance Transfer Goal Standby Assistance,Front Wheeled Walker Gait Goal Standby Assistance,Front Wheel Walker,Simone Walker Gait Distance 75 Other Goals up/down 5 steps with bilateral rails SBA. Days to Meet Goals 5 Frequency of Treatment Frequency Of Treatment Twice a Day Treatment Plan Physical Therapy Treatment Plan Bed Mobility Training,Transfer Training,Gait Training, Therapeutic Exercise,Balance Retraining,Post Op Education, Discharge Planning,Hot or Cold Pack,Neuromuscular Re-ed, Coordination Retraining,Manual Therapy Other Recommendations and Next Treatment LE exercises, ambulation Focus Recommendations To Nursing Amount of Assist Needed Standby Assistance,1 Person Assist Discharge Recommendations PT Discharge Recommendations Home with Assistance, Outpatient PT
--- NOTE | 2019-06-26 10:53 | PT.IPTN ---
Current Diagnoses Other chondrocalcinosis, unspecified site (06/25/19) Unilateral primary osteoarthritis, right knee (06/25/19) Surgery Performed Operation Date: 06/22/19 12:45 Actual Procedures p *OPB* Total Knee Arthroplasty(Right) - Jose F Siu MD Physical Therapy Treatment Note M2 PT-IP Current Condition Start: 06/23/19 10:34 Freq: NEEDED Status: Active Protocol: Document 06/23/19 12:00 AW (Rec: 06/23/19 12:51 AW [id number]) Physical Therapy Current Condition Current Condition Evaluation Date 06/23/19 Treatment Diagnosis R TKA, impaired mobility Onset Date 06/22/19 Weight Bearing Status Weight Bearing Status Weight Bear as Tolerated M3 PT-IP Subjective Start: 06/23/19 10:34 Freq: NEEDED Status: Active Protocol: Document 06/26/19 10:10 SP (Rec: 06/26/19 11:42 SP [id number]) Subjective Physical Therapy Visit Type Type Treatment Note Visit Start Time 10:10 Visit Stop Time 10:53 Total Visit Minutes 43 Number of SPECIAL EDUCATION PARAPROFESSIONAL Visits 3 Physical Therapy Visit Comments Patient Comments Pt agreeable to work with PT. Patient Goals Assess stairs today. Therapy Pain Assessment Pain Present Pain Present Denied Pain M4 PT-IP Mobility and Gait Start: 06/23/19 10:34 Freq: NEEDED Status: Active Protocol: Document 06/26/19 10:10 SP (Rec: 06/26/19 11:42 SP [id number]) PT-Bed Mobility Assessment Rolling Type of Rolling Roll to Right Level of Assist Standby Assistance Supine to Sit Supine to Sit Standby Assistance,Bedrails Sit to Supine Sit to Supine Standby Assistance,Bedrails Scooting Scooting to Edge of Bed Standby Assistance Scooting Up and Down in Bed Standby Assistance PT-Transfer Assessment Sit to and From Stand Sit to and from Stand Contact Guard Assistance,Use of Upper Extremities Equipment Transfer Assistive Device Gait Belt,Front Wheeled Walker Orthotic/Prosthetic Devices or Brace: No Transfers Transfer Destination Bed Transfer Technique ambulated with FWW Transfer Ability Level of Assist Contact Guard Assistance,1 Person Assistance,Use of Upper Extremities Comments Mobility Comments Pt was laying in bed when arrived. Pt was able to complete supine <> sitting with HOB elevated with use of bed rails and gait belt to slef assist RLE repositioning in/out bed SBA. Pt was able to sit to stand CGA using FWW with use good BUE placement from EOB then ambulate to hallway, step pivot to w/c. Pt was able to bend R knee approx 100* on foot plate in w /c with Min A. Improved quad activation and steady R knee extension during WB. Gait Assessment Gait Gait Assistance Required: Contact Guard Assist,1 Person Assist Distance (Feet) 57 Able to Maintain Weight Bearing Status Yes During Gait Assistive Devices Assistive Device Gait Belt,Front Wheeled Walker Orthotic/Prosthetic Devices or Brace: No Gait Deviations General Gait Pattern Antalgic,Decreased Stride Length,Decreased Feet Clearance Factors Limiting Gait Function Factors Limiting Gait Function Decreased Activity Tolerance, Decreased Strength,Limited Range of Motion,Pain,Poor Balance,Poor Safety Awareness Comments Gait Comments Pt was able to ambulate further distance today with only 1 stopped standing rest break using FWW CGA by and w/c follow secondary to decreased strength and activity tolerance, improved from yesterday. Pt demonstrated improved quad activation during WB through RLE, no unsteadiness or buckling during LLE advancement but reported and demonstrated leaning on FWW during stopped rest secondary to BUE tiring as distance progressed. Initially modified step through foot patterning (L foot heel lined up with RLE forefoot) but as tired decreases to step to gait.Pt continued require cuing for knee flexion and heel toe gait to progress normal patterning . Stair Climbing Assessment Evaluation Level of Assist On Stairs Contact Guard Assistance, Minimal Assistance,1 Person Assistance Devices Stair Climbing Assistive Devices Axillary Crutches,Right Railing Technique/Endurance Stair Climbing Direction Ascend and Descend Stair Climbing Technique Step to Step Number of Steps Climbed 3 Stair Climbing Set # Repetitions (reps) 2 Comments Stair Climbing Comments Pt was able to complete 3 stairs x2 sets Min A of 1 required with axillary crutch in LUE and RHR, therapist assist during first set and second. Pt performed step to gait patterning LLE leading ascending RLE leading descending therapist provided then with instruction positioning contact support anterior R knee (with our knee ) to prevent buckling of R knee during LLE transitioning to step for safety, not needed . Patient was initially anxious about stair management but able to complete with no R knee buckling or LOB. PT-Balance Assessment Sitting Balance and Reactions Static Sitting Balance Ability Normal Dynamic Sitting Balance Ability Good Standing Balance and Reactions Static Standing Balance Ability Fair Dynamic Standing Balance Ability Fair Device Used FWW M5 PT-IP Objective Assessments Start: 06/23/19 10:34 Freq: NEEDED Status: Active Protocol: Document 06/23/19 12:00 AW (Rec: 06/23/19 12:51 AW [id number]) Orientation Orientation/Cognition Level of Alertness Alert Orientation Name,Day of Week,Place, Situation Language Function Ability No Deficits Noted Safety Awareness Understands Safety Issues Memory Description No Deficits Noted Gross Range of Motion Upper Extremity ROM Assessment Within Functional Limits Lower Extremity ROM Assessment Right Impaired Strength Upper Extremity Strength Assessment Within Functional Limits Lower Extremity Strength Assessment Right Impaired Comments Strength Comments BUE and LLE 4+/5 grossly Sensation Assessment Sensation Gross Sensation WNL M6 PT-IP Treatment Start: 06/23/19 10:34 Freq: NEEDED Status: Active Protocol: Document 06/26/19 10:10 SP (Rec: 06/26/19 11:42 SP [id number]) Physical Therapy Treatment Education Education Provided Weight Bearing Status,Safety Other Treatments Other Treatment Performed Review post op exercises for HEP. M7 PT-IP Assessment and Plan Start: 06/23/19 10:34 Freq: NEEDED Status: Active Protocol: Document 06/26/19 10:10 SP (Rec: 06/26/19 11:42 SP [id number]) PT Summary Assessment and Plan Potential Rehabilitation Potential Good Status of Condition at Evaluation Evolving Summary Impairments Pain,ROM,Strength,Balance, Coordination,Bed Mobility, Transfers,Gait,Activity Tolerance Progress Towards Goals Slow Progress due to Pain,Slow Progress due to Medical Issues,Slow Progress due to Activity Tolerance Assessment Summary Pt required SBA for bed mobility and CGA during transfers and gait using FWW. CGA to Min A during stair managment using L crutch and R HR step to patterning. was able to assist patient during all mobilty, provided cuing for safety positioning and suggested provide reminders of R knee flexion/ heel toe positioning to progress normal gait. Pt was laying in bed with all needs within reach and provided cold pack per request, no pain reported throughout all mobility just reported anxiousness/ uncertainty. Pt may go home when medically stable. Pt plans to go home with to assist him. Recommend Home Health PT to improve strength, ROM and independence. Goals Bed Mobility Goal Standby Assistance Transfer Goal Standby Assistance,Front Wheeled Walker Gait Goal Standby Assistance,Front Wheel Walker,Simone Walker Gait Distance 75 Other Goals up/down 5 steps with bilateral rails SBA. Days to Meet Goals 5 Frequency of Treatment Frequency Of Treatment Twice a Day Treatment Plan Physical Therapy Treatment Plan Bed Mobility Training,Transfer Training,Gait Training, Therapeutic Exercise,Balance Retraining,Post Op Education, Discharge Planning,Hot or Cold Pack,Neuromuscular Re-ed, Coordination Retraining,Manual Therapy Other Recommendations and Next Treatment LE exercises, ambulation Focus Recommendations To Nursing Amount of Assist Needed Standby Assistance,1 Person Assist Discharge Recommendations PT Discharge Recommendations Home Health PT
[2019-06-26 12:00] VITALS: BP 99/59; PULSE 70; RESP 16; TEMP 36.4; O2SAT 94
--- NOTE | 2019-06-26 12:46 | P.DS_ITS ---
History of Present Illness History of Present Illness Date Patient Seen: 06/26/19 Time Patient Seen: 12:46 Chief complaint: [id number] RT TKA *OPB* Narrative: Patient's pain is moderate. Denies fever chills. No nausea vomiting. Discharge Providers Provider Date of admission: 06/25/19 08:52 Discharge Date: 06/26/19 Primary care physician: Donnie Huffman MD Consults: 06/22/19 16:19 Consult to Discharge Planning Routine Comment: Consult to Physical Therapy Evaluate & Treat Comment: Physician Instructions: postop TKA protocol Consult to Respiratory Therapy Evaluate & Treat Comment: Physician Instructions: Evaluate and treat 06/24/19 10:41 Consult to Occupational Therapy Evaluate & Treat Comment: Physician Instructions: Evaluate and treat Discharge provider: Rogelio Herzog PA-C Summary Hospital Course Discharge Diagnosis: Status post right total knee arthroplasty secondary to right knee osteoarthritis Hospital Course: Procedure: Right total knee replacement Same procedure as scheduled: Yes Indications: The patient has had progressively worsening right knee pain with radiographic changes consistent with arthritis. Non-operative management has failed and the patient has requested total knee replacement. The risks, benefits and alternatives to surgery were discussed with the patient prior to proceeding. Risks discussed included, but were not limited to, failure to relieve pain, stiffness, infection, nerve damage, deep venous thrombosis, pulmonary embolism, stroke, coma, heart attack, permanent paralysis and , as well as the potential need for eventual revision of the prosthetic. Surgeon: Jose F Siu Industrial Engineering Manager: Kate Chapin Click Yes if Unassisted: No Anesthesia Type: Spinal, Sedation and Local Operative Notes Findings: Moderate patellofemoral osteoarthritis with mild medial and lateral osteoarthritis. Closure Type: primary Specimen(s): none sent Prosthetic devices, grafts, tissues, transplants, or devices: Implants used in this procedure were manufactured by the [employer] and included the BCS II Journey total knee replacement with a size 5 right Oxinium femur, a size 4 right non porous tibial base plate, a 9 mm cross-linked polyethylene tibial insert and a 32 mm oval Stephanie II patella. Applied: implant(s) Estimated Blood Loss (mL): 25 Blood products transfused: none Tourniquet time (min): 53 Patient admitted to the hospital for right total knee arthroplasty. Patient consented to the same. Patient taken to the operating room underwent right total knee arthroplasty. Patient back in his room recovering well as in stable condition. Patient does live in a recreational vehicle in because of the stairs and lack of mobility wound be discharged home with home health services. Exam Vital Signs (past 8 hours): - 06/26/19 08:05 06/26/19 12:00 Temperature 98.6 F 97.6 F Pulse Rate 74 70 Respiratory Rate 17 16 Blood Pressure 108/70 99/59 L Pulse Oximetry 97 94 Oxygen Delivery Method Room Air Oxygen Flow Rate 0 Narrative Exam Narrative: 69-year-old male resting comfortably in bed in no apparent distress. Right knee dressing is clean, dry and intact. Motor function and sensation intact to light touch right lower extremity. Right leg is warm and dry. Objective Labs Result Diagrams: 06/23/19 05:55 Discharge Plan Discharge Plan Patient Disposition: Home Health Service Discharge orders & Medications Prescriptions: New oxycodone 5 mg Tablet 5 mg PO Q3HR PRN (Reason: Pain) Qty: 60 RF: 0 Continued atorvastatin 40 mg Tablet 40 mg PO DAILY RF: 0 metformin 500 mg Tablet 500 mg PO DAILY RF: 0 allopurinol 100 mg Tablet 100 mg PO DAILY RF: 0 lisinopril-hydrochlorothiazide 20-25 mg Tablet 1 tab PO DAILY RF: 0 atenolol 50 mg Tablet 50 mg PO DAILY RF: 0 hydroxyzine pamoate [Vistaril] 25 mg Capsule 25 mg PO TID PRN (Reason: Spasms) RF: 0 Discontinued oxycodone 5 mg Capsule 5 - 10 mg PO TID PRN (Reason: Pain) RF: 0 Follow up/Referrals: Jose F Siu MD [Physician] - (1 wk) Donnie Huffman MD [Primary Care Provider] - Diet/Activity/Treatments Diet: Diet as Tolerated and Carb-consistent/Diabetic Activity: WBAT Cold/Heat Therapy: ice as needed Other treatments: per [facility] Skin/Wound/Dressing Care Report to your healthcare provider any signs of infection, such as:: chills, fever, increased pain, unusual drainage and unusual redness Dressing: clean clean and dry Visit Report/Discharge Packet Instructions: Non-Medication Pain Relief, DI for Knee Replacement, DI for Constipation, How to Prevent Falls Stand Alone Forms: Surgery Discharge Visit Report Forms: Patient Portal/API, Stroke Signs & Symptoms Discharge Data Primary Care Provider: Donnie Huffman
--- NOTE | 2019-06-26 13:14 | PM.DS.1 ---
History of Present Illness History of Present Illness Chief complaint: [id number] RT TKA *OPB* Narrative: Patient's pain is moderate. Denies fever chills. No nausea vomiting. Discharge Providers Provider Date of admission: 06/25/19 08:52 Discharge Date: 06/26/19 Primary care physician: Donnie Huffman MD Consults: 06/22/19 16:19 Consult to Discharge Planning Routine Comment: Consult to Physical Therapy Evaluate & Treat Comment: Physician Instructions: postop TKA protocol Consult to Respiratory Therapy Evaluate & Treat Comment: Physician Instructions: Evaluate and treat 06/24/19 10:41 Consult to Occupational Therapy Evaluate & Treat Comment: Physician Instructions: Evaluate and treat Discharge provider: Rogelio Herzog PA-C Exam Vital Signs (past 8 hours): - 06/26/19 08:05 06/26/19 12:00 Temperature 98.6 F 97.6 F Pulse Rate 74 70 Respiratory Rate 17 16 Blood Pressure 108/70 99/59 L Pulse Oximetry 97 94 Oxygen Delivery Method Room Air Oxygen Flow Rate 0 Objective Labs Result Diagrams: 06/23/19 05:55 Discharge Plan Discharge Plan Patient Disposition: Home Health Service Discharge orders & Medications Prescriptions: New hydromorphone [Dilaudid] 2 mg tablet 2 mg PO Q4H PRN (Reason: pain) Qty: 40 RF: 0 Continued atorvastatin 40 mg Tablet 40 mg PO DAILY RF: 0 metformin 500 mg Tablet 500 mg PO DAILY RF: 0 allopurinol 100 mg Tablet 100 mg PO DAILY RF: 0 lisinopril-hydrochlorothiazide 20-25 mg Tablet 1 tab PO DAILY RF: 0 atenolol 50 mg Tablet 50 mg PO DAILY RF: 0 hydroxyzine pamoate [Vistaril] 25 mg Capsule 25 mg PO TID PRN (Reason: Spasms) RF: 0 Discontinued oxycodone 5 mg Capsule 5 - 10 mg PO TID PRN (Reason: Pain) RF: 0 Follow up/Referrals: Jose F Siu MD [Physician] - (1 wk) Donnie Huffman MD [Primary Care Provider] - Diet/Activity/Treatments Diet: Diet as Tolerated and Carb-consistent/Diabetic Activity: WBAT Cold/Heat Therapy: ice as needed Other treatments: per [facility] Skin/Wound/Dressing Care Report to your healthcare provider any signs of infection, such as:: chills, fever, increased pain, unusual drainage and unusual redness Dressing: clean clean and dry Visit Report/Discharge Packet Instructions: Non-Medication Pain Relief, DI for Knee Replacement, DI for Constipation, How to Prevent Falls Stand Alone Forms: Surgery Discharge Visit Report Forms: Patient Portal/API, Stroke Signs & Symptoms Discharge Data Primary Care Provider: Donnie Huffman
--- NOTE | 2019-06-26 14:48 | CM.DPNOTE ---
DC Note: Spoke w/Heather at [facility] this AM, she explained physician still had not made determination about SNF auth. Heather awaiting additional input from physician today, this MASTER CRAFTSMAN suggested a determination be made to assist the patient and family in understanding their rights, right to appeal decision etc. Heather agreed. Meanwhile, pt was able to complete stair training today and all agreeable, PT/pt/spouse to DC home w/ HH today. Met w/pt and reviewed HH options, pt had no agency preference. Placed call to Malena at [facility] and gave referral, she suggested that PT start the POC which would allow them to start care w/in 24-48 hrs, this MASTER CRAFTSMAN made note PT Okay to start care on [facility]. Faxed completed [facility], HH order and clinical packet to Malena. Pt/spouse remain aware and agreeable to plan. Pt states his address is correct on the face sheet, space number [address]; alerted [facility] of this. Updated [facility] w/above. P: DC home w/ spouse via pov and [facility] RN/PT/OT. LINETTE Dunn
--- NOTE | 2019-06-26 14:57 | PT.IPTN ---
Current Diagnoses Other chondrocalcinosis, unspecified site (06/25/19) Unilateral primary osteoarthritis, right knee (06/25/19) Surgery Performed Operation Date: 06/22/19 12:45 Actual Procedures p *OPB* Total Knee Arthroplasty(Right) - Jose F Siu MD Physical Therapy Treatment Note M2 PT-IP Current Condition Start: 06/23/19 10:34 Freq: NEEDED Status: Active Protocol: Document 06/23/19 12:00 AW (Rec: 06/23/19 12:51 AW [id number]) Physical Therapy Current Condition Current Condition Evaluation Date 06/23/19 Treatment Diagnosis R TKA, impaired mobility Onset Date 06/22/19 Weight Bearing Status Weight Bearing Status Weight Bear as Tolerated M3 PT-IP Subjective Start: 06/23/19 10:34 Freq: NEEDED Status: Active Protocol: Document 06/26/19 14:45 SP (Rec: 06/26/19 15:47 SP [id number]) Subjective Physical Therapy Visit Type Type Treatment Note Visit Start Time 14:45 Visit Stop Time 14:57 Total Visit Minutes 12 Number of DAIRY MANAGER Visits 4 Physical Therapy Visit Comments Patient Comments Pt and requested assist with acquired crutch adjustment. M4 PT-IP Mobility and Gait Start: 06/23/19 10:34 Freq: NEEDED Status: Active Protocol: Document 06/26/19 14:45 SP (Rec: 06/26/19 15:47 SP [id number]) PT-Bed Mobility Assessment Rolling Type of Rolling Roll to Right Level of Assist Contact Guard Assistance, Minimal Assistance,1 Person Assistance Supine to Sit Supine to Sit Standby Assistance,Bedrails Sit to Supine Sit to Supine Standby Assistance,Bedrails Scooting Scooting to Edge of Bed Standby Assistance Scooting Up and Down in Bed Standby Assistance PT-Transfer Assessment Sit to and From Stand Sit to and from Stand Contact Guard Assistance,Use of Upper Extremities Equipment Transfer Assistive Device Gait Belt,Front Wheeled Walker Orthotic/Prosthetic Devices or Brace: No Transfers Transfer Destination Bed,Chair Transfer Technique ambulated with FWW Transfer Ability Level of Assist Contact Guard Assistance,1 Person Assistance,Use of Upper Extremities Comments Mobility Comments Pt was laying in bed when arrived. Pt and requested assist with acquired crutch adjustment prior to DC to prep for home use. Pt was able to complete bed mobility SBA and using bed rail using gait belt for RLE repositioning to EOB. Pt was able to complete sit to stand CGA using FWW. Crutches were to tall for his height and both and patient stated will stop by on way home to get proper spencer 5'1-5'9 crutches to assist stair mgt at home as practiced in am with success. Pt was able to transfer to chair CGA using FWW step to gait and stable knee extension RLE WB with mod UE WB on FWW. Pt was sitting in side chair with nursing and in room, all needs were within reach when left. Gait Assessment Gait Gait Assistance Required: Contact Guard Assist,1 Person Assist Distance (Feet) 3 Able to Maintain Weight Bearing Status Yes During Gait Assistive Devices Assistive Device Gait Belt,Front Wheeled Walker Orthotic/Prosthetic Devices or Brace: No Gait Deviations General Gait Pattern Antalgic,Decreased Stride Length,Decreased Feet Clearance Factors Limiting Gait Function Factors Limiting Gait Function Decreased Activity Tolerance, Decreased Strength,Limited Range of Motion,Pain,Poor Balance,Poor Safety Awareness Comments Gait Comments Pt was able to ambulate to side chair step to gait pattern using FWW CGA, and patient requested assist to help him with dressing to prep for DC, mod A required for pant and total assist R LE sock mgt. PT-Balance Assessment Sitting Balance and Reactions Static Sitting Balance Ability Normal Dynamic Sitting Balance Ability Good Standing Balance and Reactions Static Standing Balance Ability Fair Dynamic Standing Balance Ability Fair Device Used FWW M5 PT-IP Objective Assessments Start: 06/23/19 10:34 Freq: NEEDED Status: Active Protocol: Document 06/23/19 12:00 AW (Rec: 06/23/19 12:51 AW [id number]) Orientation Orientation/Cognition Level of Alertness Alert Orientation Name,Day of Week,Place, Situation Language Function Ability No Deficits Noted Safety Awareness Understands Safety Issues Memory Description No Deficits Noted Gross Range of Motion Upper Extremity ROM Assessment Within Functional Limits Lower Extremity ROM Assessment Right Impaired Strength Upper Extremity Strength Assessment Within Functional Limits Lower Extremity Strength Assessment Right Impaired Comments Strength Comments BUE and LLE 4+/5 grossly Sensation Assessment Sensation Gross Sensation WNL M6 PT-IP Treatment Start: 06/23/19 10:34 Freq: NEEDED Status: Active Protocol: Document 06/26/19 14:45 SP (Rec: 06/26/19 15:47 SP [id number]) Physical Therapy Treatment Education Education Provided Weight Bearing Status,Safety M7 PT-IP Assessment and Plan Start: 06/23/19 10:34 Freq: NEEDED Status: Active Protocol: Document 06/26/19 14:45 SP (Rec: 06/26/19 15:47 SP [id number]) PT Summary Assessment and Plan Potential Rehabilitation Potential Good Status of Condition at Evaluation Evolving Summary Impairments Pain,ROM,Strength,Balance, Coordination,Bed Mobility, Transfers,Gait,Activity Tolerance Progress Towards Goals Slow Progress due to Pain,Slow Progress due to Medical Issues,Slow Progress due to Activity Tolerance Assessment Summary Pt required SBA for bed mobility and CGA during transfers and gait using FWW. CGA to Min A during stair managment using L crutch and R HR step to patterning. was able to assist patient during all mobilty, provided cuing for safety positioning and suggested provide reminders of R knee flexion/ heel toe positioning to progress normal gait. Pt was laying in bed with all needs within reach and provided cold pack per request, no pain reported throughout all mobility just reported anxiousness/ uncertainty. Pt may go home when medically stable. Pt plans to go home with to assist him. Recommend home with assistance , outpatient rehab to improve strength, ROM and independence. Goals Bed Mobility Goal Standby Assistance Transfer Goal Standby Assistance,Front Wheeled Walker Gait Goal Standby Assistance,Front Wheel Walker,Simone Walker Gait Distance 75 Other Goals up/down 5 steps with bilateral rails SBA. Days to Meet Goals 5 Frequency of Treatment Frequency Of Treatment Twice a Day Treatment Plan Physical Therapy Treatment Plan Bed Mobility Training,Transfer Training,Gait Training, Therapeutic Exercise,Balance Retraining,Post Op Education, Discharge Planning,Hot or Cold Pack,Neuromuscular Re-ed, Coordination Retraining,Manual Therapy Other Recommendations and Next Treatment LE exercises, ambulation Focus Recommendations To Nursing Amount of Assist Needed Standby Assistance,1 Person Assist Discharge Recommendations PT Discharge Recommendations Home with Assistance,Home Health Equipment Needed for Home Before raised toilet seat, crutches Discharge
--- NOTE | 2019-06-26 16:01 | PC.NURSE ---
Discharge: Pt feels he is ready to d/c home. Worked w/PT and he was deemed safe to d/c home. They gave final instructions. PA saw pt and gave instructions. Reviewed d/c packet w/pt and spouse. Rx given. Questions answered. Pt d/c home via auto w/spouse.
== END 2019-06-26 15:30 | disposition home health service (06) | DRG 940 ==
LOC: OR 14:56
PROVIDERS: Admitting Provider Orthopaedic Surgery; Family Provider Family Medicine; PCP Family Medicine; Visit Provider Orthopaedic Surgery
PROC: 0SRC0JZ Replacement of Right Knee Joint with Synthetic Substitute, Open Approach (ICD-10-PCS; CPT 27447; principal; 2019-06-22 12:45)
DX: G89.18 Other acute postprocedural pain (principal); Z68.41 Body mass index [BMI] 40.0-44.9, adult; M17.11 Unilateral primary osteoarthritis, right knee; E11.22 Type 2 diabetes mellitus with diabetic chronic kidney disease; N18.3 Chronic kidney disease, stage 3 (moderate); I12.9 Hypertensive chronic kidney disease with stage 1 through stage 4 chronic kidney disease, or unspecified chronic kidney disease; M11.20 Other chondrocalcinosis, unspecified site; E66.9 Obesity, unspecified; E78.5 Hyperlipidemia, unspecified; Z87.891 Personal history of nicotine dependence; Z79.84 Long term (current) use of oral hypoglycemic drugs
CPT/HCPCS: 36415; 73560; 82962; 85014; 85018; 97110; 97116; 97162; 97165; 97530; 97535; C1776; G0378; C9290; J0690; J1170; J1885; J2250; J2270; J2704; J3010

== ENCOUNTER 2023-06-14 06:26 | Day surgery (SDC) | payer OTHER, SELFPAY ==
[2019-06-22 18:49] VITALS: BMI 42.0
[2023-06-06 09:52] VITALS: BMI 40.1
[2023-06-14] VITALS (17 sets, daily range): BP systolic 81–137; BP diastolic 34–74; PULSE 63–96; RESP 11–25; TEMP 36.1–37.1; O2SAT 92–98; BMI 40.1
--- NOTE | 2023-06-14 06:00 | DI.RAD.S_ITS ---
PROCEDURE: XR KNEE LT 1TO2V INDICATIONS: TKA TECHNIQUE: 2 view(s) of the knee acquired. COMPARISON: [facility], CR, XR KNEE RT 1TO2V, 06/22/2019, 14:37. FINDINGS: Bones: Patient is status post knee joint arthroplasty. Hardware components are in expected positions. Visualized bony structures are intact. Soft tissues: Overlying postoperative changes are noted. IMPRESSION: Expected post-operative appearance of a knee arthroplasty. Dictated by: Laury Varma M.D. on 06/14/2023 at 11:01 Approved by: Laury Varma M.D. on 06/14/2023 at 11:02
[2023-06-14] MEDS: PREGABALIN 75 MG CAPSULE PO (06:43)
[2023-06-14] MEDS: ACETAMINOPHEN 325 MG TABLET 975 MG PO (06:43)
[2023-06-14] MEDS: LACTATED RINGERS 1,000 ML 42 ML IV (06:44)
--- NOTE | 2023-06-14 07:10 | PM.PREOP ---
Pre-operative Note Interval Note History & Physical reviewed/Exam performed by Physician: Yes Changes to H&P: No H&P completed within 30 days and has changed as indicated here:: Patient is on a chronic pain contract. will get narcotic postop pain medication from his PCP/narcotic prescription provider. We will provide other medications.
--- NOTE | 2023-06-14 07:32 | P.OP_ITS ---
Operative Date/Time/Diagnoses Date of procedure: 06/14/23 Time of procedure: 08:00 Pre-op diagnosis: Left knee arthritis, BMI 40 Post-op diagnosis: same Procedure & Clinicians Procedure: Total knee arthroplasty code 46752, left Modifier number 22 Modifier number 22 was utilized in this procedure for the patient's morbid obesity BMI 40 requiring additional assistance/work beyond typical total knee arthroplasty. Additional assistance for retraction and exposure throughout the surgical field and manipulation for surgery this morbidly obese patient culminating in longer than average operative time for total knee arthroplasty Same procedure as scheduled: Yes Indications: The patient is a 72-year-old male with end-stage bhip-vp-cyod knee arthritis. The patient has a significant end-stage varus knee arthritis. They have failed conservative treatment with activity modifications, injections, physical therapy and bracing. They has been indicated for total knee replacement. The risks and benefits of the procedure have been discussed with the patient even opportunity to ask questions. The risks of surgery include but are not limited to infection, malunion, nonunion, fracture, loosening, persistence of pain, damage to nerves and blood vessels, need for additional procedures, DVT, PE, cardiopulmonary complications and . The patient expressed a thorough understanding of the risks and benefits of surgery and has elected to proceed. Consent was signed in the office. During the operation the services of physician clinical education assistant were medically indicated and necessary to provide the exposure of the operative site for the surgical procedure and to maintain the limb in a proper position to carry out the procedure safely and efficiently. Without a qualified assistant auditor being present this would extend the operative procedure and would have made the procedure more technically difficult to perform. The clinical education assistant was medically necessary for the proper positioning, retraction and manipulation of the limb, proper exposure, and manipulation of the tissue for implantation implants and closure. Surgeon: Haley Salazar Condominium Manager: Mabel Skinner Anesthesia Type: General, Peripheral nerve block and Local Operative Notes Findings: End-stage varus knee arthritis, left full-thickness cartilage loss large osteophytes Closure Type: primary Specimen(s): none sent Prosthetic devices, grafts, tissues, transplants, or devices: Bhatt and nephew journey II BCS Femur cobalt chromium 5 Tibia 4 Poly 9mm Patella, oval 32 Estimated Blood Loss (mL): 50 Blood products transfused: none Tourniquet time (min): 86 Procedure in detail: Patient was seen in the preoperative area where the patient and site of surgery were identified in the operative knee was marked informed consent confirmed. This was the left knee. Patient received the appropriate preoperative antibiotics this was weight dosed 3g Ancef and other preoperative medications and was taken to the operating room placed on operating table in the supine position. Spinal anesthetic and an adductor block was administered by the anesthesia team. The operative extremity was then prepped and draped in the standard sterile fashion with a nonsterile tourniquet high on the thigh. Patient was placed on the green foam bolsters then the ribbed black cushion was placed beneath the operative leg.. A lateral post was placed at the level of the proximal thigh /trochanter area as a lateral post. Formal time-out procedure was performed confirming the patient's side and site of surgery and administration of appropriate preoperative antibiotics and implants were in the room accounted for. All were in agreement. Patient received a preoperative dose of tranexamic acid and then a 2nd dose at tourniquet release Patient was prepped and draped in the standard sterile fashion and the foot was placed into the leg baptiste. This was taken into high flexion and the incision was marked out over the anterior knee to the level of the medial tubercle tubercle. The Esmarch was then used for exsanguination and the tourniquet was inflated to 250 mmHg. Was made through the skin and subcutaneous tissue in high flexion this was then brought down into 30? of flexion for the medial parapatellar arthrotomy. A marker pen was used to rubén the arthrotomy site for later repair. Joint fluid was evacuated. The anterior osteophytes and soft tissues were removed. Routine medial release was initially made along the medial proximal tibia with Bovie. The patella was 1st cut using the saw sized and prepped and then subluxed throughout the case and protected. The leg was then taken into extension and the patella was everted and the patella was cut to accommodate the patellar button. This was sized to a 32 mm button for a 9mm thickness to recreate the original dimensions of the patella. Oval button was used to match contralateral side. Poly was removed and the protector replaced and the patella was subluxed and the knee was taken back up into flexion and attention was returned to the femur. Then the rotational landmarks of Whitesides line and the trans epicondylar axis were marked on the femur with electrocautery. Then the intramedullary guide for the femur was created. The distal femoral cut was made in 6? of valgus using the intramedullary guide with the cut setting on 2+ as the patient did have a preoperative flexion contracture. The ACL and PCL released. The proximal tibia was then cut using the intramedullary guide, taking 9 mm off the less involved side this was the lateral plateau. The Hussein wing was used to check the slope through the guide. Second pass was made through the tibial cut guide with the saw after the cut tibia was removed plane down about 1 more mm and further smooth then the resection surface. In extension remainders of the medial and lateral menisci were removed. The extension flexion gaps were then checked using both the flexion extension blocks. The knee was tight in both flexion and extension so an additional 2 mm was cut and this was checked was still quite tight in both flexion and extension so the +4 capable guide was utilized for total with a +4 cut the tibia. This then a comminuted the 9 mm block in flexion and extension. The femur was then sized and the rotation set using the posterior condyle referencing 3? of stud sheep farmer al rotation. Because the flexion was still a touch tight decision was made to elevate the size 5 femur block 1 mm. This measured a size 5. Cut block was then placed and the anterior, posterior and chamfer cuts were then made. The posterior osteophytes and soft tissues were then removed. Bone plug was placed into the femur intramedullary canal. Then in extension the posterior capsule was injected with a mixture of 40 mL of 0.25% Marcaine and 20 mL of Exparel care to avoid excessive injection posterior laterally. The remainder of this was saved for the capsule and subcutaneous tissue and placed during cement curing. Attention was then returned to the tibia and this was prepared with the rotation set by the extramedullary guide. Lined up with the tibial crest and the 2nd toe. The size 4 tibial trial was then pinned in place and the trial femoral components were placed. Then the intercondylar notch was cut through the femoral trial to create the box this was done with the distal than the proximal drill and then the box cut distally and then proximally. Next the insert was placed and the trial poly placed. This was stable in flexion and extension and there was a 0-135 degree range of motion. The tibia was then finished with the drill and flange cuts and then this was removed. All trials were removed. The wound and bone was irrigated with pulsatile lavage. This was then dried with a sponge. The components were verified and opened and the cement was mixed. Cement was applied to the components and then to the bone then the tibia was cemented in place 1st followed by the femur then the patella. Excess cement was removed. With care looking around the back of the knee. Remainder of the injection was injected around the capsule. trial poly was placed back in the leg was placed into extension for the patellar cementing. After this was cured approximately 15 minutes later and the dilute Betadine solution was placed for at least 3 minutes in the wound this was then irrigated out and the final poly was placed. This was a 9 mm poly. The tourniquet was released hemostasis was achieved. Final 1g of tranexamic acid was given IV at the time of tourniquet release. The capsule was closed with 1. Ethibond suture. And then the quill stitch. Subcutaneous layer was closed with 3-0 Vicryl suture. Skin was closed with a running V lock suture Stratafix Monocryl type suture and Dermabond. An Aquacel dressing was placed. An Felton wrap was applied. Anesthetic was terminated the patient was woken from anesthesia and taken to recovery room in good condition. There no immediate complications from this procedure. The patient will be maintained on a standard total knee replacement protocol with weight-bearing as tolerated. Complications: none Post-operative Condition: stable Disposition: PACU Plan for aftercare: Weightbear as tolerated, range of motion as tolerated. We overnight. Discharge when safe. Anticipate discharge on postop day 1. Patient will be getting narcotic prescriptions from his primary care provider he is on a chronic pain contract takes oxycodone at baseline 4 to 5 times a day. He has postop physical therapy set up. He will follow up in 2 weeks for a wound check. He may shower with the Aquacel dressing. Aspirin 81 mg b.i.d. for DVT prophylaxis x6 weeks. Prescriptions for Zofran, Flexeril, gabapentin and Vistaril sent to his pharmacy.
[2023-06-14] MEDS: CEFAZOLIN VIAL 3 GM in SODIUM CHLORIDE 0.9% 100 ML IV ×3 (08:00→23:40)
[2023-06-14] MEDS: TRANEXAMIC ACID 1,000 MG VIAL 1000 MG INJ ×2 (08:10→09:54)
[2023-06-14] MEDS: BUPIVACAINE 0.25% (PF) 60 ML, EPINEPHrine 0.3 MG INJ (08:33)
[2023-06-14] MEDS: BUPIVACAINE LIPOSOME 266 MG/20 ML VIAL INJ (08:34)
--- NOTE | 2023-06-14 08:37 | SUR.OPER ---
Supine on padded OR bed. Pillow under head, arms secured on padded armboards <90 degree abduction. Safety belt across torso. Non-operative leg secured with tape over blanket over lower leg. Operative leg secured in Dangelo positioner. Foam padded brace at thigh of operative leg.
[2023-06-14] MEDS: OXYCODONE IR 5 MG TABLET PO ×4 (10:41→23:35)
[2023-06-14] MEDS: HYDROMORPHONE 4 MG TABLET PO ×2 (11:35→15:32)
[2023-06-14] MEDS: LACTATED RINGERS 1,000 ML 100 ML IV ×2 (11:40→20:39)
[2023-06-14] MEDS: ACETAMINOPHEN 325 MG TABLET 650 MG PO ×3 (12:47→23:34)
--- NOTE | 2023-06-14 13:06 | OT.IPNOTE ---
Attempted OT eval, pt states not ready to get up and that he just wants to focus on PT. Pt had R TKA preformed 06/22/19. Pt states has all OT equipment needs, an dorothea has a ramp in place now. Therefore, pt does not want OT services at this time.
--- NOTE | 2023-06-14 13:30 | PT.IIE ---
Current Diagnoses Bilateral primary osteoarthritis of knee (06/14/23) Unilateral primary osteoarthritis, left knee (06/14/23) Other specified joint disorders, unspecified knee (06/14/23) Surgery Performed Operation Date: 06/14/23 07:45 Actual Procedures p Total Knee Arthroplasty(Left) - Haley Salazar MD Surgical History (Last Updated 06/06/23 @ 09:58 by Jodi Moran, RN) History of total right knee replacement (06/22/19) Hx of arthroscopy of left knee Hx of arthroscopy of right knee (~2006) Hx of hernia repair Hx of knee surgery (~1968) Hx of laminectomy (~2007) Hx of laminectomy (~2012) Hx of prostatectomy (~2014) Hx of tonsillectomy S/P lumbar fusion (~2009) Status post extracapsular cataract extraction of left eye Medical History (Last Updated 06/17/19 @ 12:17 by Jodi Moran RN) Asthma Depression (~2007) Former smoker Gout HLD (hyperlipidemia) HTN (hypertension) Numbness Prostate cancer (~2014) Stage III chronic kidney disease Physical Therapy Inpatient Evaluation/Re-Eval M1 PT/OT-IP Prior Functional Status Start: 06/14/23 14:56 Freq: NEEDED Status: Active Protocol: Document 06/14/23 13:30 AB (Rec: 06/14/23 14:58 AB [email or web address]) Medical Review Prior Functional Status Medical History Reviewed Yes Communication able to make needs known Mobility and Gait pt stated that he was independent with all mobilities and ambulation without AD Social History Household Members spouse Living Arrangements RV Number of Floors (Floors) One Floor Number of Stairs To Enter/Railing? ramp to enter with B rails Home Environment Standard Height Toilet,Walk in Shower Home Equipment Front Wheel Walker,Straight Cane,Crutches,Shower Seat without Backrest,Hand Held Shower Additional Social History Comment pt stated that he sleeps on his recliner chair M2 PT-IP Current Condition Start: 06/14/23 14:56 Freq: NEEDED Status: Active Protocol: Document 06/14/23 13:30 AB (Rec: 06/14/23 16:35 AB [email or web address]) Physical Therapy Current Condition Current Condition Evaluation Date 06/14/23 Treatment Diagnosis s/p L TKA; difficulty in walking Onset Date 06/14/23 M3 PT-IP Subjective Start: 06/14/23 14:56 Freq: NEEDED Status: Active Protocol: Document 06/14/23 13:30 AB (Rec: 06/14/23 16:35 AB [email or web address]) Subjective Physical Therapy Visit Type Type Initial Evaluation Visit Start Time 13:30 Visit Stop Time 15:45 Total Visit Minutes 38 Notes pt seen for split visits: 1330 to 1340 and 1517 to 1545 Number of SOLICITOR PATENT Visits 0 Physical Therapy Visit Comments Patient Comments checked on pt initially and refused to do PT. PLOF obtained and home set up. Checked back on pt after ~ 1 hour and agreed to do PT Therapy Pain Assessment Pain When Pain Assessed At Rest Pain Present Pain Present Pain Reported Location Left Knee Intensity 5 Scale Used increases with mobility Pain Management Techniques Apply Cold,Distraction, Elevation,Modification of Treatment,Re-positioning, Timing of Activity with Medications M4 PT-IP Mobility and Gait Start: 06/14/23 14:56 Freq: NEEDED Status: Active Protocol: Document 06/14/23 13:30 AB (Rec: 06/14/23 16:35 AB [email or web address]) PT-Bed Mobility Assessment Supine to Sit Supine to Sit Standby Assistance Sit to Supine Sit to Supine Standby Assistance PT-Transfer Assessment Sit to and From Stand Sit to and from Stand Minimal Assistance,1 Person Assistance,Use of Upper Extremities Equipment Transfer Assistive Device Gait Belt,Front Wheeled Walker Orthotic/Prosthetic Devices or Brace: No Comments Mobility Comments BP ins upine: 126/52. completed supine to sit SBA with HOB elevated. pt stated that he sleeps on a recliner at home. pt able to sit on EOB SBA. BP sittin/54. completed sit to stand min A and required 3 attempts to stand. pt wants to put his underwear on and assisted. pt able to maintain standing using FWW for support CGA while assist with brief management. pt ambulated using FWW ~ 30 ft CGA. pt initially was not putting weight on LLE but midway with walking was putting more weight. pt requested to go back to bed. completes sit to supine SBA. positioned pt in bed. call light and table placed within reach. Gait Assessment Gait Gait Assistance Required: Contact Guard Assist Distance (Feet) 30 Able to Maintain Weight Bearing Status Yes During Gait Assistive Devices Assistive Device Gait Belt,Front Wheeled Walker Orthotic/Prosthetic Devices or Brace: No Gait Deviations General Gait Pattern Antalgic,Decreased Stride Length,Decreased Feet Clearance,Step-to Gait Factors Limiting Gait Function Factors Limiting Gait Function Decreased Activity Tolerance, Decreased Strength,Limited Range of Motion,Pain,Poor Balance,Poor Safety Awareness PT-Balance Assessment Sitting Balance and Reactions Static Sitting Balance Ability Good Dynamic Sitting Balance Ability Good Standing Balance and Reactions Static Standing Balance Ability Fair Dynamic Standing Balance Ability Fair Device Used FWW M5 PT-IP Objective Assessments Start: 06/14/23 14:56 Freq: NEEDED Status: Active Protocol: Document 06/14/23 13:30 AB (Rec: 06/14/23 16:35 AB [email or web address]) Orientation Orientation/Cognition Level of Alertness Alert Orientation Name,Place,Situation Language Function Ability No Deficits Noted Safety Awareness Decreased Safety Awareness Memory Description No Deficits Noted Gross Range of Motion Lower Extremity ROM Impairments L knee flexion: ~ 70 deg L knee extension: ~ 15 deg less to 0 Strength Lower Extremity Strength Assessment Left Impaired Hip 3+/5 Knee 3+/5 Sensation Assessment Sensation Gross Sensation WNL Muscle Tone Muscle Tone WNL Yes M6 PT-IP Treatment Start: 06/14/23 14:56 Freq: NEEDED Status: Active Protocol: Document 06/14/23 13:30 AB (Rec: 06/14/23 16:35 AB [email or web address]) Physical Therapy Treatment Education Education Provided Precautions,Weight Bearing Status,Post-Op Packet,Safety M7 PT-IP Assessment and Plan Start: 06/14/23 14:56 Freq: NEEDED Status: Active Protocol: Document 06/14/23 13:30 AB (Rec: 06/14/23 16:35 AB [email or web address]) PT Summary Assessment and Plan Potential Rehabilitation Potential Fair Status of Condition at Evaluation Evolving Summary Impairments Pain,ROM,Strength,Balance, Coordination,Sensation,Tone, Cognition,Bed Mobility, Transfers,Gait,Activity Tolerance Assessment Summary pt is a 72 y/o M s/p L TKA POD 0 and is WBAT on LLE. pt requiring min A with sit to stand and CGA with ambulation using FWW. pt will likely progress during hospital stay. pt stated that his spouse will be able to assist him. will continue to assess progress and when appropriate, conduct caregiver training. Goals Bed Mobility Goal Independent Transfer Goal Independent,Front Wheeled Walker Gait Goal Independent,Front Wheel Walker Gait Distance 200 Days to Meet Goals 0 Frequency of Treatment Frequency Of Treatment Twice a Day Treatment Plan Physical Therapy Treatment Plan Bed Mobility Training,Transfer Training,Gait Training, Therapeutic Exercise,Balance Retraining,Post Op Education, Discharge Planning,Hot or Cold Pack,Neuromuscular Re-ed, Coordination Retraining,Manual Therapy Weight Bearing Status Weight Bearing Status Weight Bear as Tolerated Allowed Weight Bearing Amount (enter % LLE WBAT or #) (%) Recommendations To Nursing Amount of Assist Needed 1 Person Assist Discharge Recommendations PT Discharge Recommendations Home with Assistance, Outpatient PT Transportation Needs at Discharge Private Vehicle
--- NOTE | 2023-06-14 14:04 | PC.NURSE ---
Addendum entered by Priyanka Downey R.N. 06/14/23 16:36: EKG results in SVT HR 140's. MD Salazar notified, hospitalist consult placed, MD Klein at bedside. Patient placed on telemetry. Addendum entered by Priyanka Downey R.N. 06/14/23 16:13: At 1610 RN notified MD Salazar of patient HR 120's-140 at rest after ambulating with PT around the room. BP 126/62, 02 is 97% on RA, patient w/o s/sx of bleeding to wound. Pain level is 4/10. RR 18 and he denies feeling SOB, extreme pain or distress. Original Note: Patient arrived from PACU via bed at 1105 a.m. He is A&Ox4. VSS, afebrile on RA. Soft BP's 99-112 (SBP), IVF running at 100 ml/hr. Patient reports pain 7/10 to L knee. TORO wrap over aquacel c/d/i. He denies numbness to toes, legs. He is able to lift LLE but reports it's very painful. He states pain increasing and is medicated with PRN 4mg hydromorphone po with good effect. He reports pain tolerable with prn med and scheduled 5mg po oxycodone along with scheduled po tyelenol 650 mg scheduled. He acknowledges that he is due to void by 1500 this afternoon. He tolerates lunch well. Patient is encouraged to use IS, SCD'S in place, ice pack to knee, bed alarm, call light in reach, continuous pulse oximetry, q 2hour repositioning, and frequent rounding.
[2023-06-14] MEDS: METOPROLOL TARTRATE 5 MG/5 ML INJ IV ×3 (16:39→17:46)
[2023-06-14] MEDS: METOPROLOL IR 25 MG TABLET PO (16:48)
--- NOTE | 2023-06-14 17:07 | DI.ECHO.S_ITS ---
[facility] +---------+ : : [address] [place] [address] : : : : [id number] : : : : Phone: [phone]---------+ Echocardiogram Report + + :Name: ASHLI DOE Study Date: 06/15/2023 Height: 68 in : :[facility] ReadingLocation: Weight: 264 lb : : Gender: Male BSA: 2.3 m2 : :: 1950 Age: 72 yrs BP: 104/52 mmHg: :Reason For Study: NEW-ONSET SVT : : Performed By: Padmini Oakes : :Referring: KIRSTIE ORTIZ : + + Interpretation Summary The ejection fraction is estimated to be 55-60%. Diastolic parameters suggest probable normal left ventricular diastolic function and normal filling pressures. The right ventricle is borderline dilated. The right ventricular systolic function is normal. There is mild to moderate mitral regurgitation. There is mild aortic stenosis. Pulmonary artery pressures cannot be estimated because of the lack of a measurable TR jet velocity but the IVC suggests a CVP of around 3 mmHg. Procedure: A two-dimensional transthoracic echocardiogram with color flow and Doppler was performed. The study quality was technically adequate. There is no prior echocardiogram noted for this patient. The patient was in sinus rhythm with heart rates between 68-75 bpm during the exam. Left Ventricle: The left ventricle is normal in size and wall thickness. The ejection fraction is estimated to be 55-60%. Diastolic parameters suggest probable normal left ventricular diastolic function and normal filling pressures. Right Ventricle: The right ventricle is borderline dilated. The right ventricular systolic function is normal. Atria: The left atrial size is normal. Right atrial size is normal. There is no Doppler evidence for an interatrial shunt. Mitral Valve: There is moderate mitral annular calcification. The mitral valve leaflets appear mildly thickened, but open well. There is mild to moderate mitral regurgitation. Aortic Valve: The aortic valve is trileaflet. The aortic valve is moderately calcified. There is mildly reduced leaflet mobility. The peak aortic velocity is 2.2 m/sec. The aortic valve mean gradient is 13.5 mmHg. The calculated aortic valve area is 1.8 cm2. There is mild aortic stenosis. No aortic regurgitation is present. Tricuspid Valve: The tricuspid valve is normal in structure and function. There is a trace or physiologic amount of tricuspid regurgitation. Pulmonary artery pressures cannot be estimated because of the lack of a measurable TR jet velocity but the IVC suggests a CVP of around 3 mmHg. Pulmonic Valve: The pulmonic valve is not well seen, but is grossly normal. There is mild pulmonic regurgitation. Great Vessels: The aortic root is normal size. The dimensions of the ascending aorta are normal. The IVC is of normal diameter and collapses greater than 50% with a sniff. This suggests a low right atrial pressure of 3 mm Hg. Pericardium/ Pleura There is no pericardial effusion. There is no pleural effusion. MMode/2D Measurements & Calculations LVIDd: 3.5 cm LVOT diam: 2.2 cm LVIDs: 2.3 cm Ao root diam: 3.3 cm FS: 32.9 % asc Aorta Diam: 3.3 cm IVSd: 1.00 cm Ao Arch Diam (Prox Trans): 3.5 cm LVPWd: 0.89 cm LV jack. diameter/BSA (cm/m^2): 1.5 LV sys. diameter/BSA (cm/m^2): 1.0 LA A2 area: 20.8 cm2 RA long axis: 4.6 cm LA A4 area: 15.8 cm2 RA area: 14.3 cm2 LA length (vol): 5.2 cm RA vol: 37.7 ml LA vol: 54.1 ml RA : 16.4 ml/m2 LA vol index: 23.5 ml/m2 IVC diam: 1.8 cm RVD1 (basal): 4.3 cm TAPSE: 2.2 cm Doppler Measurements & Calculations Ao V2 max: 223.7 cm/sec LVOT Max Cole: 106.5 cm/sec Ao V2 mean: 172.9 cm/sec LV V1 max P.5 mmHg Ao max P.0 mmHg LV V1 VTI: 24.2 cm Ao mean P.5 mmHg SAVANAH(I,D): 1.9 cm2 Ao V2 VTI: 50.5 cm SAVANAH(V,D): 1.9 cm2 sev ratio: 0.48 SAVANAH indexed to BSA (cm^2/m^2): 0.82 MV E max cole: 107.4 cm/sec PA V2 max: 128.4 cm/sec MV A max cole: 74.3 cm/sec PA V2 mean: 88.8 cm/sec MV E/A: 1.4 PA mean P.4 mmHg Med Peak E' Cole: 11.1 cm/sec PA pr(Accel): 37.9 mmHg E/E' med: 9.7 Lat Peak E' Cole: 11.5 cm/sec E/E' lat: 9.3 E/e' average: 9.5 MV dec time: 0.21 sec SV(OT): 95.1 ml Reading Physician:03:35 PM
--- NOTE | 2023-06-14 17:08 | P.CONS_ITS ---
History of Present Illness Consult details Date Patient Seen: 06/14/23 Time Patient Seen: 17:25 Chief complaint: Left TKA *OPB* Narrative: Eugene Jovel is a 72yo M with PMH of CKD3, prostate cacner, HTN, HLD, and gout who underwent L total knee replacement and had post-op asymptomatic SVT. Hospitalist service consulted for co-management. Patient noted to have HR to 140's and state EKG done which showed SVT. Patient lying in bed and has no symptoms of fluttering, CP, lightheadedness, dizziness or NV. He notes no history of heart problems. He says about an hour ago he worked with PT and had severe pain in his L knee but currently his pain is fine. He has no prior echo on file. Meds Home Medications and Allergies Home Medications Medication Instructions Recorded Confirmed Type allopurinol 100 mg tablet 300 mg PO DAILY 06/08/19 06/14/23 History atorvastatin 40 mg tablet 40 mg PO DAILY 06/08/19 06/14/23 History lisinopril 20 1 tab PO DAILY 06/08/19 06/14/23 History mg-hydrochlorothiazide 25 mg tablet cyclobenzaprine 10 mg tablet 10 mg PO TID PRN Spasms 06/06/23 06/14/23 History magnesium oxide 400 mg PO DAILY 06/06/23 06/14/23 History oxycodone 5 mg tablet 5 mg PO 5XD 06/06/23 06/14/23 History potassium gluconate 99 mg PO DAILY 06/06/23 06/14/23 History aspirin 81 mg tablet,delayed 81 mg PO BID #60 tabs 06/14/23 Rx release cyclobenzaprine 10 mg tablet 10 mg PO TID PRN muscle spasm #30 06/14/23 Rx tabs gabapentin 300 mg capsule 300 mg PO TID #30 caps 06/14/23 Rx (Neurontin) hydromorphone 2 mg tablet 2 mg PO Q4H PRN pain #20 tabs 06/14/23 Rx ondansetron 4 mg disintegrating 4 mg PO Q8H PRN nausea and 06/14/23 Rx tablet vomiting #5 tabs Allergies Allergy/AdvReac Type Severity Reaction Status Date / Time amitriptyline AdvReac Intermediate Makes my Verified 06/14/23 06:38 bones itch Review of Systems Review of Systems Narrative: All other systems reviewed with the patient and are negative unless otherwise stated. Exam Vital Signs (past 8 hours): - 06/14/23 10:20 06/14/23 10:25 06/14/23 10:30 Temperature 97.0 F L Pulse Rate 90 87 86 Respiratory Rate 16 16 16 Blood Pressure 98/34 L 116/45 L 98/35 L Pulse Oximetry 94 92 92 Oxygen Delivery Method Room Air Room Air Room Air Oxygen Flow Rate 06/14/23 10:34 06/14/23 10:40 06/14/23 10:49 Temperature 97.0 F L Pulse Rate 88 88 87 Respiratory Rate 16 18 14 Blood Pressure 100/61 81/45 L 101/62 Pulse Oximetry 93 94 92 Oxygen Delivery Method Room Air Room Air Room Air Oxygen Flow Rate 06/14/23 10:55 06/14/23 11:33 06/14/23 12:04 Temperature 97.6 F 97.2 F L 97.6 F Pulse Rate 87 87 85 Respiratory Rate 14 14 16 Blood Pressure 99/46 L 112/58 L 111/54 L Pulse Oximetry 94 96 95 Oxygen Delivery Method Oxygen Flow Rate 0 0 0 06/14/23 12:10 06/14/23 12:40 06/14/23 13:05 Temperature 97.6 F 97.0 F L 98.8 F Pulse Rate 85 87 79 Respiratory Rate 16 16 18 Blood Pressure 111/54 L 118/59 L 137/74 Pulse Oximetry 95 97 92 Oxygen Delivery Method Oxygen Flow Rate 0 0 0 06/14/23 15:53 Temperature Pulse Rate 96 H Respiratory Rate 18 Blood Pressure 126/63 Pulse Oximetry 96 Oxygen Delivery Method Oxygen Flow Rate 0 Oxygen Delivery Method Room Air Oxygen Flow Rate 0 Narrative Exam Narrative: GEN: no acute distress, obese HEENT: moist mucous membranes, PERRL NECK: trachea midline, no JVD CV: tachycardic, no murmurs PULM: clear bilaterally ABD: soft, nontender, nondistended, no organomegaly EXT: L knee post-op dressing in place NEURO: awake, alert, oriented, no focal deficits Objective Labs 06/14/23 14:50 06/14/23 14:50 [facility] Medical History (Updated 09/01/20 @ 08:49 by Pure Klimaschutz) Stage III chronic kidney disease Former smoker Depression (~2007) Gout Prostate cancer (~2014) Asthma Numbness HLD (hyperlipidemia) HTN (hypertension) Surgical History (Updated 06/06/23 @ 09:58 by Jodi Moran RN) History of total right knee replacement (06/22/19) Hx of arthroscopy of left knee Hx of knee surgery (~1968) Hx of arthroscopy of right knee (~2006) Hx of laminectomy (~2012) S/P lumbar fusion (~2009) Hx of laminectomy (~2007) Hx of tonsillectomy Hx of prostatectomy (~2014) Hx of hernia repair Status post extracapsular cataract extraction of left eye Social History household members: spouse Tobacco & Substance Use Smoking Status: Former smoker alcohol intake: current Assessment & Plan Assessment & Plan narrative: # asymptomatic SVT -HR 140's with EKG confirming SVT, patient asyptomatic. BP stable. -IV metoprolol PRN, start po metoprolol 25mg BID -check mag, K and TSH -place on tele -echo ordered # post-op L total knee -management per ortho -pain adequately controlled currently # CKD 3 -continue IVF # HTN -continue home BP meds Medicine will continue to follow. Thank you for allowing us to participate in the care of this patient. Should you have any questions, do not hesitate to speak with us directly or call us.
[2023-06-14 17:09] LABS: Hematocrit 29.7 % (41-53); Hemoglobin 10.1 g/dL (13.5-17.5); Mean Corpuscular Hemoglobin 28.6 PG (26-34); Platelet Count 149 X10^3/uL (150-400); Red Blood Cell Count 3.54 X10^6/uL (4.5-5.9); Red Cell Distribution Width 15.3 % (11.6-14.8)
[2023-06-14 17:12] LABS: Alanine Aminotransferase 15 IU/L (<50); Albumin 3.8 g/dL (3.5-5.0); Albumin Globulin Ratio 1.3 (1.0-2.8); Alkaline Phosphatase 75 U/L (38-126); Aspartate Aminotransferase 23 IU/L (17-59); BUN Creatinine Ratio 13.6 (6-22); Bilirubin Total 0.3 mg/dL (0.2-1.3); Blood Urea Nitrogen 26 mg/dL (9-20); Calcium 8.6 mg/dL (8.4-10.2); Carbon Dioxide 23 mmol/L (22-32); Chloride 107 mmol/L (98-107); Estimated Glomerular Filt Rate 37 mL/min (>60); Globulin 2.9 g/dL (1.7-4.1); Glucose 133 mg/dL (80-110); HEMOLYSIS < 15 (0-50); Potassium 4.7 mmol/L (3.4-5.1); Sodium 137 mmol/L (137-145); Total Protein 6.7 g/dL (6.3-8.2)
[2023-06-14 17:18] LABS: Add Manual Diff / Slide Review YES
[2023-06-14 17:20] LABS: Neutrophils Absolute Manual 6800 /uL (3000-5900); RBC Morphology Normal Morphology; Total Cells Counted 100
[2023-06-14 18:04] LABS: TSH w/ Reflex to FT4 0.57 uIU/mL (0.47-4.68)
--- NOTE | 2023-06-14 18:15 | P.PN_ITS ---
Subjective Subjective Date Patient Seen: 06/14/23 Time Patient Seen: 18:15 Interval history: Postop day 0 left total knee arthroplasty. Patient feeling well but developed heart rate into the 140s. EKG showed SVT.. Hospitalist was consulted and kindly ordered medications in his consulting. The patient is in no acute distress. He is comfortable. His regional block is working. Exam Vital Signs (past 8 hours): - 06/14/23 10:20 06/14/23 10:25 06/14/23 10:30 Temperature 97.0 F L Pulse Rate 90 87 86 Respiratory Rate 16 16 16 Blood Pressure 98/34 L 116/45 L 98/35 L Pulse Oximetry 94 92 92 Oxygen Delivery Method Room Air Room Air Room Air Oxygen Flow Rate 06/14/23 10:34 06/14/23 10:40 06/14/23 10:49 Temperature 97.0 F L Pulse Rate 88 88 87 Respiratory Rate 16 18 14 Blood Pressure 100/61 81/45 L 101/62 Pulse Oximetry 93 94 92 Oxygen Delivery Method Room Air Room Air Room Air Oxygen Flow Rate 06/14/23 10:55 06/14/23 11:33 06/14/23 12:04 Temperature 97.6 F 97.2 F L 97.6 F Pulse Rate 87 87 85 Respiratory Rate 14 14 16 Blood Pressure 99/46 L 112/58 L 111/54 L Pulse Oximetry 94 96 95 Oxygen Delivery Method Oxygen Flow Rate 0 0 0 06/14/23 12:10 06/14/23 12:40 06/14/23 13:05 Temperature 97.6 F 97.0 F L 98.8 F Pulse Rate 85 87 79 Respiratory Rate 16 16 18 Blood Pressure 111/54 L 118/59 L 137/74 Pulse Oximetry 95 97 92 Oxygen Delivery Method Oxygen Flow Rate 0 0 0 06/14/23 15:53 Temperature Pulse Rate 96 H Respiratory Rate 18 Blood Pressure 126/63 Pulse Oximetry 96 Oxygen Delivery Method Oxygen Flow Rate 0 Oxygen Delivery Method Room Air Oxygen Flow Rate 0 Narrative Exam Narrative: Alert oriented no acute distress lying in bed. Heart tachycardia Respirations unlabored on room air Left lower extremity [place] wrap in place. Ice packs in place. Demonstrates dorsiflexion plantar flexion. Objective Labs 06/14/23 14:50 06/14/23 14:50 Labs: Laboratory Results - last 24 hr 06/14/23 14:50 WBC 8.0 RBC 3.54 L Hgb 10.1 L Hct 29.7 L MCV 84.0 MCH 28.6 MCHC 34.0 RDW 15.3 H Plt Count 149 L Neut % (Auto) Not Reportable Lymph % (Auto) Not Reportable [place] % (Auto) Not Reportable Eos % (Auto) Not Reportable Baso % (Auto) Not Reportable Lymph # (Auto) Not Reportable [place] # (Auto) Not Reportable Baso # (Auto) Not Reportable Total Counted 100 Seg Neutrophils % 75.0 H Band Neutrophils % 10.0 H Lymphocytes % (Manual) 10.0 L Monocytes % (Manual) 3.0 Metamyelocytes % 1.0 H Myelocytes % 1.0 H Neutrophils # (Manual) 6800 H RBC Morphology Normal morphology Sodium 137 Potassium 4.7 Chloride 107 Carbon Dioxide 23 BUN 26 H Creatinine 1.91 H Estimated GFR 37 L BUN/Creatinine Ratio 13.6 Glucose 133 H Calcium 8.6 Magnesium 2.0 Total Bilirubin 0.3 AST 23 ALT 15 Alkaline Phosphatase 75 Total Protein 6.7 Albumin 3.8 Globulin 2.9 Albumin/Globulin Ratio 1.3 TSH 0.57 PFSH Medical History (Updated 09/01/20 @ 08:49 by Segterra ([employer]) Oh) Stage III chronic kidney disease Former smoker Depression (~2007) Gout Prostate cancer (~2014) Asthma Numbness HLD (hyperlipidemia) HTN (hypertension) Surgical History (Updated 06/06/23 @ 09:58 by Jodi Moran RN) History of total right knee replacement (06/22/19) Hx of arthroscopy of left knee Hx of knee surgery (~1968) Hx of arthroscopy of right knee (~2006) Hx of laminectomy (~2012) S/P lumbar fusion (~2009) Hx of laminectomy (~2007) Hx of tonsillectomy Hx of prostatectomy (~2014) Hx of hernia repair Status post extracapsular cataract extraction of left eye Social History household members: spouse Smoking Status: Former smoker alcohol intake: current Assessment & Plan Post-op Postoperative Procedures: Procedures Operation Date: 06/14/23 07:45 Actual Procedure Side Surgeon p Total Knee Arthroplasty Left Haley Salazar MD Postoperative day: 0 Postoperative status: other (SVT) Postoperative status narrative: Postop day 0 left total knee arthroplasty--postop developed SVT appreciate hospitalist consultation. Postoperative plan narrative: Regarding the left knee: Weightbear as tolerated routine total knee arthroplasty postop care Regarding SVT. Follow up hospitalist recommendations Discharge when stable Aspirin 81 mg b.i.d. for DVT prophylaxis Patient takes pain medication chronically 4-5 mg oxycodone daily from his PCP. We will be getting oxycodone from PCP postop. Small prescription of Dilaudid is sent. As breakthrough. Time Spent With Patient Time with patient: less than 15 minutes Quality VTE Deep Vein Thrombosis/Pulmonary Embolism Present on Admission: No
[2023-06-14] MEDS: AMIODARONE 150 MG/100 ML PIGGYBACK 600 MG IV (18:44)
[2023-06-14] MEDS: AMIODARONE 360 MG/200 ML PIGGYBACK 33.33 MG IV (18:53)
--- NOTE | 2023-06-14 19:04 | CM.MNRNOTE ---
Patient received x3 doses IV metoprolol and HR continued in the 130's. Per MD Klein patient needing to transfer to ICU room 230 for amiodarone drip. Report given to Amber and Ildefonso and patient transported to Room 230 this evening at 1840 via w/ch. He reports feeling asymptomatic.
[2023-06-14] MEDS: ASPIRIN EC 81 MG TABLET PO (20:23)
[2023-06-14] MEDS: HYDROMORPHONE 2 MG TABLET PO (20:23)
[2023-06-14] MEDS: SENNOSIDES 8.6 MG TABLET 17.2 MG PO (20:23)
[2023-06-14] MEDS: DOCUSATE 100 MG CAPSULE PO (20:23)
--- NOTE | 2023-06-14 21:45 | PC.NURSE ---
[employer] Software Consultant Notes-Resumed care of patient at beginning of shift. A/Ox4, HR 120s-130s rapid A-fib, denies chest pain, palpitations, shortness of breath, of dizziness, BP 90s/50s MAP > 65. Amiodarone loading dose complete by day RN and followed with continuous infusion at 33.3ml/hr per protocol. Patient converted to NSR at 1940. HS metoprolol IR held d/t low BP-see vital trends. US guided IV placed by ED RN. LR @ 100ml/hr.
[2023-06-15] VITALS (12 sets, daily range): BP systolic 97–129; BP diastolic 50–75; PULSE 64–86; RESP 12–30; TEMP 36.6–37.1; O2SAT 95–99
[2023-06-15] MEDS: AMIODARONE 360 MG/200 ML PIGGYBACK 16.7 MG IV (00:40)
[2023-06-15 01:23] LABS: MRSA (Nasal) PCR Not Detected (Not Detect)
[2023-06-15 04:55] LABS: Add Manual Diff / Slide Review NO; Basophils Absolute Auto 0 /uL (0-100); Basophils Percent Auto 0.1 % (0-2); Eosinophils Absolute Auto 0 /uL (0-450); Eosinophils Percent Auto 0.1 % (2-4); Hematocrit 28.6 % (41-53); Hemoglobin 9.6 g/dL (13.5-17.5); Lymphocytes Absolute Auto 1600 /uL (1100-4500); Lymphocytes Percent Auto 12.4 % (25-40); Mean Corpuscular HGB Conc 33.5 % (30-36); Mean Corpuscular Hemoglobin 27.8 PG (26-34); Monocytes Absolute Auto 4100 /uL (0-900); Monocytes Percent Auto 30.7 % (3-14); Neutrophils Absolute Auto 7500 /uL (1500-7000); Neutrophils Percent Auto 56.7 % (50-75); Platelet Count 165 X10^3/uL (150-400); Red Blood Cell Count 3.45 X10^6/uL (4.5-5.9); Red Cell Distribution Width 15.2 % (11.6-14.8); White Blood Cell Count 13.2 X10^3/uL (4.5-11.0)
[2023-06-15 05:00] LABS: BUN Creatinine Ratio 11.8 (6-22); Blood Urea Nitrogen 25 mg/dL (9-20); Calcium 8.2 mg/dL (8.4-10.2); Carbon Dioxide 22 mmol/L (22-32); Chloride 106 mmol/L (98-107); Estimated Glomerular Filt Rate 33 mL/min (>60); Glucose 105 mg/dL (80-110); HEMOLYSIS < 15 (0-50); Potassium 4.1 mmol/L (3.4-5.1); Sodium 138 mmol/L (137-145)
[2023-06-15] MEDS: ACETAMINOPHEN 325 MG TABLET 650 MG PO ×4 (06:01→22:56)
[2023-06-15] MEDS: OXYCODONE IR 5 MG TABLET PO ×4 (06:01→23:42)
[2023-06-15] MEDS: LACTATED RINGERS 1,000 ML 100 ML IV ×2 (06:55→16:34)
--- NOTE | 2023-06-15 08:25 | PM.PN.1 ---
Subjective Subjective Interval history: Converted to NSR overnight. Amio still running and transitioning to po metoprolol. Patient complaining of increased L knee pain. Toradol ordered. Exam Vital Signs (past 8 hours): - 06/15/23 00:42 06/15/23 02:00 06/15/23 03:00 Temperature 98.4 F Pulse Rate 65 64 64 Respiratory Rate 16 12 14 Blood Pressure 101/57 L 105/54 L 102/54 L Pulse Oximetry 98 97 97 Oxygen Delivery Method Oxygen Flow Rate 0 06/15/23 04:00 06/15/23 04:00 06/15/23 04:54 Temperature 97.9 F Pulse Rate 74 Respiratory Rate 30 H Blood Pressure 113/53 L Pulse Oximetry 95 Oxygen Delivery Method Room Air Oxygen Flow Rate 06/15/23 05:00 06/15/23 06:00 06/15/23 07:50 Temperature Pulse Rate 70 68 68 Respiratory Rate 13 16 20 Blood Pressure 97/54 L 99/50 L 104/52 L Pulse Oximetry 97 99 98 Oxygen Delivery Method Oxygen Flow Rate 0 Oxygen Delivery Method Room Air Oxygen Flow Rate 0 Narrative Exam Narrative: GEN: no acute distress, obese, appears uncomfortable HEENT: moist mucous membranes, PERRL NECK: trachea midline, no JVD CV: regular rate and rhythm, no murmurs PULM: clear bilaterally ABD: soft, nontender, nondistended, no organomegaly EXT: L knee post-op dressing in place NEURO: awake, alert, oriented, no focal deficits Objective Labs 06/15/23 04:19 06/15/23 04:19 Labs: Laboratory Results - last 24 hr 06/14/23 06/14/23 06/15/23 14:50 23:50 04:19 WBC 8.0 13.2 H D RBC 3.54 L 3.45 L Hgb 10.1 L 9.6 L Hct 29.7 L 28.6 L MCV 84.0 83.0 MCH 28.6 27.8 MCHC 34.0 33.5 RDW 15.3 H 15.2 H Plt Count 149 L 165 Neut % (Auto) Not Reportable 56.7 Lymph % (Auto) Not Reportable 12.4 L [place] % (Auto) Not Reportable 30.7 H Eos % (Auto) Not Reportable 0.1 L Baso % (Auto) Not Reportable 0.1 Neut # (Auto) 7500 H Lymph # (Auto) Not Reportable 1600 [place] # (Auto) Not Reportable 4100 H Eos # (Auto) 0 Baso # (Auto) Not Reportable 0 Total Counted 100 Seg Neutrophils % 75.0 H Band Neutrophils % 10.0 H Lymphocytes % (Manual) 10.0 L Monocytes % (Manual) 3.0 Metamyelocytes % 1.0 H Myelocytes % 1.0 H Neutrophils # (Manual) 6800 H RBC Morphology Normal morphology Sodium 137 138 Potassium 4.7 4.1 Chloride 107 106 Carbon Dioxide 23 22 BUN 26 H 25 H Creatinine 1.91 H 2.11 H Estimated GFR 37 L 33 L BUN/Creatinine Ratio 13.6 11.8 Glucose 133 H 105 Calcium 8.6 8.2 L Magnesium 2.0 Total Bilirubin 0.3 AST 23 ALT 15 Alkaline Phosphatase 75 Total Protein 6.7 Albumin 3.8 Globulin 2.9 Albumin/Globulin Ratio 1.3 TSH 0.57 Nasal Screen MRSA (PCR) Not detected PFSH Medical History Stage III chronic kidney disease Former smoker Depression (~2007) Gout Prostate cancer (~2014) Asthma Numbness HLD (hyperlipidemia) HTN (hypertension) Surgical History History of total right knee replacement (06/22/19) Hx of arthroscopy of left knee Hx of knee surgery (~1968) Hx of arthroscopy of right knee (~2006) Hx of laminectomy (~2012) S/P lumbar fusion (~2009) Hx of laminectomy (~2007) Hx of tonsillectomy Hx of prostatectomy (~2014) Hx of hernia repair Status post extracapsular cataract extraction of left eye Social History household members: spouse Smoking Status: Former smoker alcohol intake: current Assessment & Plan Assessment & Plan narrative: # asymptomatic SVT, now resolved -HR 140's with EKG confirming SVT, patient asyptomatic. BP stable. -on amio drip due to hypotension with IV metop pushes -converted to NSR on 06/15 on amio drip, will finish infusion and then can downgrade from ICU status -continue metoprolol tart 25mg BID -mag, K and TSH all normal -place on tele -echo ordered and pending read # post-op L total knee -management per ortho -added IV toradol due to increased knee pain # CKD 3 -continue IVF # HTN -continue home BP meds Medicine will continue to follow. Thank you for allowing us to participate in the care of this patient. Should you have any questions, do not hesitate to speak with us directly or call us. Quality VTE Deep Vein Thrombosis/Pulmonary Embolism Present on Admission: No
[2023-06-15] MEDS: lisinopriL 20 MG TABLET PO (08:28)
[2023-06-15] MEDS: METOPROLOL IR 25 MG TABLET PO ×2 (08:28→20:02)
[2023-06-15] MEDS: MAGNESIUM OXIDE 400 MG TABLET PO (08:29)
[2023-06-15] MEDS: DOCUSATE 100 MG CAPSULE PO (08:29)
[2023-06-15] MEDS: ATORVASTATIN 20 MG TABLET 40 MG PO (08:29)
[2023-06-15] MEDS: allopurinoL 100 MG TABLET 300 MG PO (08:29)
[2023-06-15] MEDS: hydroCHLOROthiazide 25 MG TABLET PO (08:29)
[2023-06-15] MEDS: ASPIRIN EC 81 MG TABLET PO ×2 (08:29→21:00)
[2023-06-15 09:28] LABS: Procalcitonin 0.08 ng/mL (<0.5)
--- NOTE | 2023-06-15 09:29 | CM.DANOTE ---
Met with patient/family to discuss discharge planning. They agree to assessment. Initial assessment navigated with patient chart and current available information. Pt is a 72 year old admitted for planned left TKA. He outlines that he had his right knee replaced by Dr. Mccauley here in 2019 so he feels like he knows what to expect. PCP: Donnie Huffman Payer: Radha STEIN DME: Has cane/own FWW at home from prior surgery. Has ramp into his RV at [facility] where he and have resided for 8 years. Harvest Manager: Lon Therapies: Planned OP PT at Dr. Mccauley?s office with Leroy Mae. Reviewed chart, patients progress will be discussed in morning multidiscaplinary rounds. Barriers: Pain, vital signs, safe mobility, pending PT/OT eval. Discharge Planning/Care Management Advanced directive, confirm from FAMILY Start: 06/14/23 11:53 Freq: Q24H Status: Active Protocol: Document 06/14/23 12:01 EJ (Rec: 06/14/23 12:01 EJ [id number]) Advance Directive, confirm on record Time 12:01 Person contacted Eugene Jovel Copy received No CM Discharge Assessment Start: 06/15/23 09:27 Freq: Status: Active Protocol: Document 06/15/23 09:27 BQ (Rec: 06/15/23 09:29 BQ [id number]) Discharge Planning Assessment Assigned Restorative Aide Jessica Barr RN CM DPOA/Assigned Designee Name Salty Jovel Advance Directives? No Advance Directives on File No History Provided By Patient,Medical Record Has Patient been admitted in last 30 No days? Prior Living Arrangements RV Household Members spouse Type of transporation used prior to Drives own vehicle admit Independent with ADL's Yes Is patient alert and oriented? Yes Caregiver for Another No DME Already Rented / Owned FWW / Walker,Cane Patient/Family Preference OP PT Therapy Barriers to Discharge Yes Comment Pain, HR Discharge Plan Home Transportation Arrangement [place] to provide transport. Referrals Initiated None needed Whiteboard Updated in Patient Room with Yes name and ext. # of Restorative Aide Review Status In Process Next Review Type Continued Stay Review Pre-Anesthesia Assessment Start: 06/06/23 09:52 Freq: Status: Complete Protocol: Document 06/06/23 09:52 CAB (Rec: 06/06/23 13:27 CAB [id number]) Pre-Anesthesia Assessment Preferred Name Nandini Patient Information Reviewed Via Phone Assessment Assessment Completed With Patient Diagnostic Results BMP/CMP,CBC,EKG Comment Outside labs/EKG scanned Primary Care Provider Donnie Huffman Seen Specialist in Last 12 Months Yes Specialist Seen Inside Sales Coordinator,Orthopedist Comment Nephrology visit 04/10/23 scanned Primary Language Korean Preferred Language Korean Height 172.72 cm Weight 119.748 kg Body Mass Index (BMI) 40.1 Hearing Ability Normal Visual Assist Glasses Dentition Type Teeth, Natural Present,Partial - Upper Other Aids No Hx Anesthesia Reactions No Hx Family Anesthesia Reaction No Hx Malignant Hyperthermia No Hx Blood Transfusions No Hx Blood Transfusion Reaction No Anesthesia Review Requested No Tree Climber No alcohol intake current alcohol intake frequency holidays/special occasions only Smoking Status Former smoker how long ago did patient quit smoking Quit 2009 Substance Use Type does not use Pain Present Pain Reported Musculoskeletal Symptoms Abnormal Gait,Back Pain, Difficulty Walking,Joint Pain, Numbness,Radiating Pain into Limb History of Falling (Recent or History of No ) Patient is completely paralyzed or No completely immobile Mental Status Oriented to own ability Is patient on oxygen? No Does patient have AMEZQUITA/SOB No Hx Sleep Apnea No CPAP/BIPAP use not prescribed Currently Taking a Beta Yesi No Can You Climb a Flight of Stairs Without Yes SOB Hx Chest Pain No Hx SOB No Hx Syncope or Dizziness No Anti-Coagulant Therapy No Has a Clip And Hanger Attacher No Cardiac Testing No Hx Pacemaker/ICD No Pacemaker Rep Required? No Cardiac Clearance Received Not Applicable Diet Type At Home Regular,Low Carb Dysphagia No Genitourinary Symptoms Dribbling, Post-void Bladder Pattern Frequency,Nocturia,Urgency Urinary Catheter Present No Hx Urinary Self Catheterization No Diabetes No HgbA1C 5.4 Date 04/04/23 Hx Drug Resistant Organism No Presence of External or Internal Medical Yes: Lumbar hardware, left eye Devices IOL, RT knee Received a COVID vaccine? Yes Received all doses? Yes Marital Status Lives With spouse Current Living Arrangements RV Number of Stairs To Enter/Railing? Ramp Support System Spouse Does the Patient Have Assistance After Yes Surgery Patient Discharge Plan Description Return Home Comment Pt advised possible same day to over night length of stay per surgeon Feels Safe in Current Environment Yes Been Physically Hurt or Threatened By a No Person in Current Environment Do you have thoughts of harming yourself None or others? Are you currently considering suicide? No Do you have a plan to hurt yourself or No Plan others? Do You Have Any Spiritual Beliefs That No May Affect Your HC Choices? Do You Have Any Cultural Practices That No May Affect Your HC Choices? Who Can We Speak to About Patient's Care Family, friends Identifying Code for Release of Patient Declines to issue Information Health Care Proxy/Next of Kin [place] () Health Care Proxy Emergency Contact Name [place] () Emergency Contact Advance Directives? No Advance Directives on File No Power of Natural Gas Trader No PAC Instructions Durable medical equipment, Medications to take/avoid, Nasal antibiotic,No ETOH/ petroleum product on skin DOS, NPO,Post-op transportation, Sensory aids,Sturdy shoes/ comfortable clothes,Do not bring valuables and remove jewelry
--- NOTE | 2023-06-15 09:33 | P.PN_ITS ---
Subjective Subjective Date Patient Seen: 06/15/23 Time Patient Seen: 09:33 Interval history: Alert oriented this morning sitting at the bedside chair. Pain controlled. Converted from SVT and to sinus rhythm overnight with amiodarone in the ICU. Previously failed to convert with medications on the floor. States he has been up and moving around with the walker and his leg felt good with weight-bearing. Denies any shortness of breath or chest pain. Exam Vital Signs (past 8 hours): - 06/15/23 02:00 06/15/23 03:00 06/15/23 04:00 Temperature Pulse Rate 64 64 Respiratory Rate 12 14 Blood Pressure 105/54 L 102/54 L Pulse Oximetry 97 97 Oxygen Delivery Method Room Air Oxygen Flow Rate 06/15/23 04:00 06/15/23 04:54 06/15/23 05:00 Temperature 97.9 F Pulse Rate 74 70 Respiratory Rate 30 H 13 Blood Pressure 113/53 L 97/54 L Pulse Oximetry 95 97 Oxygen Delivery Method Oxygen Flow Rate 06/15/23 06:00 06/15/23 07:50 06/15/23 08:28 Temperature Pulse Rate 68 68 69 Respiratory Rate 16 20 Blood Pressure 99/50 L 104/52 L 117/56 L Pulse Oximetry 99 98 Oxygen Delivery Method Oxygen Flow Rate 0 Oxygen Delivery Method Room Air Oxygen Flow Rate 0 Narrative Exam Narrative: Alert oriented no acute distress HEENT normocephalic atraumatic Breathing unlabored on room air Regular rate and rhythm this morning in the 60s and 70s Left lower extremity dressing clean dry and intact. Demonstrates dorsiflexion plantar flexion. Calf is soft. Pain controlled. No erythema. Brisk capillary refill. Objective Labs 06/15/23 04:19 06/15/23 04:19 Labs: Laboratory Results - last 24 hr 06/14/23 06/14/23 06/15/23 14:50 23:50 04:19 WBC 8.0 13.2 H D RBC 3.54 L 3.45 L Hgb 10.1 L 9.6 L Hct 29.7 L 28.6 L MCV 84.0 83.0 MCH 28.6 27.8 MCHC 34.0 33.5 RDW 15.3 H 15.2 H Plt Count 149 L 165 Neut % (Auto) Not Reportable 56.7 Lymph % (Auto) Not Reportable 12.4 L [place] % (Auto) Not Reportable 30.7 H Eos % (Auto) Not Reportable 0.1 L Baso % (Auto) Not Reportable 0.1 Neut # (Auto) 7500 H Lymph # (Auto) Not Reportable 1600 [place] # (Auto) Not Reportable 4100 H Eos # (Auto) 0 Baso # (Auto) Not Reportable 0 Total Counted 100 Seg Neutrophils % 75.0 H Band Neutrophils % 10.0 H Lymphocytes % (Manual) 10.0 L Monocytes % (Manual) 3.0 Metamyelocytes % 1.0 H Myelocytes % 1.0 H Neutrophils # (Manual) 6800 H RBC Morphology Normal morphology Sodium 137 138 Potassium 4.7 4.1 Chloride 107 106 Carbon Dioxide 23 22 BUN 26 H 25 H Creatinine 1.91 H 2.11 H Estimated GFR 37 L 33 L BUN/Creatinine Ratio 13.6 11.8 Glucose 133 H 105 Calcium 8.6 8.2 L Magnesium 2.0 Total Bilirubin 0.3 AST 23 ALT 15 Alkaline Phosphatase 75 Total Protein 6.7 Albumin 3.8 Globulin 2.9 Albumin/Globulin Ratio 1.3 Procalcitonin TSH 0.57 Nasal Screen MRSA (PCR) Not detected 06/15/23 08:40 WBC RBC Hgb Hct MCV MCH MCHC RDW Plt Count Neut % (Auto) Lymph % (Auto) [place] % (Auto) Eos % (Auto) Baso % (Auto) Neut # (Auto) Lymph # (Auto) [place] # (Auto) Eos # (Auto) Baso # (Auto) Total Counted Seg Neutrophils % Band Neutrophils % Lymphocytes % (Manual) Monocytes % (Manual) Metamyelocytes % Myelocytes % Neutrophils # (Manual) RBC Morphology Sodium Potassium Chloride Carbon Dioxide BUN Creatinine Estimated GFR BUN/Creatinine Ratio Glucose Calcium Magnesium Total Bilirubin AST ALT Alkaline Phosphatase Total Protein Albumin Globulin Albumin/Globulin Ratio Procalcitonin 0.08 TSH Nasal Screen MRSA (PCR) [facility] Medical History Stage III chronic kidney disease Former smoker Depression (~2007) Gout Prostate cancer (~2014) Asthma Numbness HLD (hyperlipidemia) HTN (hypertension) Surgical History History of total right knee replacement (06/22/19) Hx of arthroscopy of left knee Hx of knee surgery (~1968) Hx of arthroscopy of right knee (~2006) Hx of laminectomy (~2012) S/P lumbar fusion (~2009) Hx of laminectomy (~2007) Hx of tonsillectomy Hx of prostatectomy (~2014) Hx of hernia repair Status post extracapsular cataract extraction of left eye Social History household members: spouse Smoking Status: Former smoker alcohol intake: current Assessment & Plan Post-op Postoperative Procedures: Procedures Operation Date: 06/14/23 07:45 Actual Procedure Side Surgeon p Total Knee Arthroplasty Left Haley Salazar MD Postoperative day: 1 Postoperative status: anemia Postoperative status narrative: Developed SVT postop, failure to convert with beta-blockers, was admitted to the ICU for amiodarone and converted overnight--moderate postoperative anemia from acute blood loss Postoperative plan narrative: 1. Appreciate hospitalist and ICU recommendations for. Now has converted to sinus rhythm. Await hospitalist recs for any additional management or medications. Did have an echocardiogram this morning.--when stable from a medical standpoint with cardiac plan then we will plan discharge. 2. Routine left total knee arthroplasty postop care. Range of motion exercises ambulate with physical therapy. Weightbear as tolerated. May on rapid rewrap [place] as needed. Keep Aquacel dressing in place. May shower. 3. Aspirin 81 mg b.i.d. for DVT prophylaxis 4. Follow up orthopedic surgery 2 weeks for wound check. Patient already has his postoperative medications which have been sent to his retail pharmacy from the orthopedic clinic. Additionally he will be getting his chronic pain medication from his PCP. Time Spent With Patient Time with patient: less than 15 minutes Quality VTE Deep Vein Thrombosis/Pulmonary Embolism Present on Admission: No
--- NOTE | 2023-06-15 10:10 | PT.IPTN ---
Current Diagnoses Bilateral primary osteoarthritis of knee (06/14/23) Unilateral primary osteoarthritis, left knee (06/14/23) Other specified joint disorders, unspecified knee (06/14/23) Surgery Performed Operation Date: 06/14/23 07:45 Actual Procedures p Total Knee Arthroplasty(Left) - Haley Salazar MD Physical Therapy Treatment Note M2 PT-IP Current Condition Start: 06/14/23 14:56 Freq: NEEDED Status: Active Protocol: Document 06/14/23 13:30 AB (Rec: 06/14/23 16:35 AB [email or web address]) Physical Therapy Current Condition Current Condition Evaluation Date 06/14/23 Treatment Diagnosis s/p L TKA; difficulty in walking Onset Date 06/14/23 M3 PT-IP Subjective Start: 06/14/23 14:56 Freq: NEEDED Status: Active Protocol: Document 06/15/23 10:29 TS (Rec: 06/15/23 10:38 TS [id number]) Subjective Physical Therapy Visit Type Type Treatment Note Visit Start Time 10:10 Visit Stop Time 10:28 Total Visit Minutes 18 Number of [employer] ARCHITECT Visits 1 Physical Therapy Visit Comments Patient Comments Pt reports having high amount of pain, with some motivation was agreeable to PT. Therapy Pain Assessment Pain When Pain Assessed During Mobility Pain Present Pain Present Pain Reported M4 PT-IP Mobility and Gait Start: 06/14/23 14:56 Freq: NEEDED Status: Active Protocol: Document 06/15/23 10:29 TS (Rec: 06/15/23 10:38 TS [id number]) PT-Bed Mobility Assessment Supine to Sit Supine to Sit Standby Assistance Sit to Supine Sit to Supine Standby Assistance Scooting Scooting to Edge of Bed Standby Assistance Scooting Up and Down in Bed Standby Assistance PT-Transfer Assessment Sit to and From Stand Sit to and from Stand Standby Assistance,1 Person Assistance,Use of Upper Extremities Equipment Transfer Assistive Device Gait Belt,Front Wheeled Walker Orthotic/Prosthetic Devices or Brace: No Comments Mobility Comments Pt found resting in bed, HR 69 , Spo2 97% on RA, is agreeable to PT. Supine to sit SBA with HOB elevated for uprighting trunk. Sit to stand with FWW SBA, has good standing balance with no retroleaning. He mabulated in room ~40'SBA with assist for management of IV lines. Sit to supine into bed SBA with BUE support and HOB elevated. Pt was left back in bed, RN notified. Gait Assessment Gait Gait Assistance Required: Standby Assistance Distance (Feet) 40 Able to Maintain Weight Bearing Status Yes During Gait Assistive Devices Assistive Device Gait Belt,Front Wheeled Walker Orthotic/Prosthetic Devices or Brace: No Gait Deviations General Gait Pattern Antalgic,Decreased Stride Length,Decreased Feet Clearance,Step-to Gait Factors Limiting Gait Function Factors Limiting Gait Function Decreased Activity Tolerance, Decreased Strength,Limited Range of Motion,Pain,Poor Balance,Poor Safety Awareness Comments Gait Comments See mobility comments PT-Balance Assessment Sitting Balance and Reactions Static Sitting Balance Ability Good Dynamic Sitting Balance Ability Good Standing Balance and Reactions Static Standing Balance Ability Good Dynamic Standing Balance Ability Good Device Used FWW M5 PT-IP Objective Assessments Start: 06/14/23 14:56 Freq: NEEDED Status: Active Protocol: Document 06/14/23 13:30 AB (Rec: 06/14/23 16:35 AB [email or web address]) Orientation Orientation/Cognition Level of Alertness Alert Orientation Name,Place,Situation Language Function Ability No Deficits Noted Safety Awareness Decreased Safety Awareness Memory Description No Deficits Noted Gross Range of Motion Lower Extremity ROM Impairments L knee flexion: ~ 70 deg L knee extension: ~ 15 deg less to 0 Strength Lower Extremity Strength Assessment Left Impaired Hip 3+/5 Knee 3+/5 Sensation Assessment Sensation Gross Sensation WNL Muscle Tone Muscle Tone WNL Yes M6 PT-IP Treatment Start: 06/14/23 14:56 Freq: NEEDED Status: Active Protocol: Document 06/15/23 10:29 TS (Rec: 06/15/23 10:38 TS [id number]) Physical Therapy Treatment Education Education Provided Precautions,Safety M7 PT-IP Assessment and Plan Start: 06/14/23 14:56 Freq: NEEDED Status: Active Protocol: Document 06/15/23 10:29 TS (Rec: 06/15/23 10:38 TS [id number]) PT Summary Assessment and Plan Potential Rehabilitation Potential Good Summary Impairments Pain,ROM,Strength,Balance, Coordination,Sensation,Tone, Cognition,Bed Mobility, Transfers,Gait,Activity Tolerance Progress Towards Goals Progressing Toward Goals Assessment Summary Eugene is progressing well with his mobility. He SBA for all bed mobility with HOB elevated and no cueing. He progressed his gait to ~40'SBA with FWW and swith a step to gait. He reports higher amount of pain today, required some motivation to participate with PT. PT is recommending home with assist when medically stable. Goals Bed Mobility Goal Independent Transfer Goal Independent,Front Wheeled Walker Gait Goal Independent,Front Wheel Walker Gait Distance 200 Days to Meet Goals 0 Frequency of Treatment Frequency Of Treatment Twice a Day Treatment Plan Physical Therapy Treatment Plan Bed Mobility Training,Transfer Training,Gait Training, Therapeutic Exercise,Balance Retraining,Post Op Education, Discharge Planning,Hot or Cold Pack,Neuromuscular Re-ed, Coordination Retraining,Manual Therapy Other Recommendations and Next Treatment LE exercises, ambulation Focus Weight Bearing Status Weight Bearing Status Weight Bear as Tolerated Allowed Weight Bearing Amount (enter % LLE WBAT or #) (%) Recommendations To Nursing Amount of Assist Needed 1 Person Assist Discharge Recommendations PT Discharge Recommendations Home with Assistance, Outpatient PT Transportation Needs at Discharge Private Vehicle
[2023-06-15] MEDS: HYDROMORPHONE 2 MG TABLET PO (11:07)
[2023-06-15] MEDS: CYCLOBENZAPRINE 10 MG TABLET PO (11:08)
[2023-06-15] MEDS: AMIODARONE 180 MG/100 ML PIGGYBACK 16.7 MG IV (11:57)
[2023-06-15] MEDS: KETOROLAC 30 MG/ML VIAL 15 MG IV (13:09)
--- NOTE | 2023-06-15 15:11 | PT.IPTN ---
Current Diagnoses Bilateral primary osteoarthritis of knee (06/14/23) Unilateral primary osteoarthritis, left knee (06/14/23) Other specified joint disorders, unspecified knee (06/14/23) Surgery Performed Operation Date: 06/14/23 07:45 Actual Procedures p Total Knee Arthroplasty(Left) - Haley Salazar MD Physical Therapy Treatment Note M2 PT-IP Current Condition Start: 06/14/23 14:56 Freq: NEEDED Status: Active Protocol: Document 06/14/23 13:30 AB (Rec: 06/14/23 16:35 AB [email or web address]) Physical Therapy Current Condition Current Condition Evaluation Date 06/14/23 Treatment Diagnosis s/p L TKA; difficulty in walking Onset Date 06/14/23 M3 PT-IP Subjective Start: 06/14/23 14:56 Freq: NEEDED Status: Active Protocol: Document 06/15/23 16:05 TS (Rec: 06/15/23 16:13 TS [id number]) Subjective Physical Therapy Visit Type Type Treatment Note Visit Start Time 15:11 Visit Stop Time 15:34 Total Visit Minutes 23 Number of ELECTRICIAN CHIEF Visits 2 Physical Therapy Visit Comments Patient Comments Pt found resting in be, agreeable to PT. Therapy Pain Assessment Pain When Pain Assessed During Mobility Pain Present Pain Present Pain Reported M4 PT-IP Mobility and Gait Start: 06/14/23 14:56 Freq: NEEDED Status: Active Protocol: Document 06/15/23 16:05 TS (Rec: 06/15/23 16:13 TS [id number]) PT-Bed Mobility Assessment Supine to Sit Supine to Sit Standby Assistance Sit to Supine Sit to Supine Standby Assistance Scooting Scooting to Edge of Bed Standby Assistance Scooting Up and Down in Bed Standby Assistance PT-Transfer Assessment Sit to and From Stand Sit to and from Stand Standby Assistance,1 Person Assistance,Use of Upper Extremities Equipment Transfer Assistive Device Gait Belt,Front Wheeled Walker Orthotic/Prosthetic Devices or Brace: No Comments Mobility Comments Supine to sit SBA with HOB elevated, pt is slightly impulsive to move when therapist is not ready with managing IV lines. Pt ambulated in room ~60'SBA with FWW, reports decreased pain from this morning. Pt performed seated knee flex/ext on L side sitting EOB x5. Sit to supine into bed SBA, pt cues self for AAROM assist from RLE, uses momentum to get LLE into bed. Pt was left in bed, all needs met. Gait Assessment Gait Gait Assistance Required: Standby Assistance Distance (Feet) 60 Able to Maintain Weight Bearing Status Yes During Gait Assistive Devices Assistive Device Gait Belt,Front Wheeled Walker Orthotic/Prosthetic Devices or Brace: No Gait Deviations General Gait Pattern Antalgic,Decreased Stride Length,Decreased Feet Clearance,Step-to Gait Factors Limiting Gait Function Factors Limiting Gait Function Decreased Activity Tolerance, Decreased Strength,Limited Range of Motion,Pain,Poor Balance,Poor Safety Awareness Comments Gait Comments See mobility comments PT-Balance Assessment Sitting Balance and Reactions Static Sitting Balance Ability Good Dynamic Sitting Balance Ability Good Standing Balance and Reactions Static Standing Balance Ability Good Dynamic Standing Balance Ability Good Device Used FWW M5 PT-IP Objective Assessments Start: 06/14/23 14:56 Freq: NEEDED Status: Active Protocol: Document 06/14/23 13:30 AB (Rec: 06/14/23 16:35 AB [email or web address]) Orientation Orientation/Cognition Level of Alertness Alert Orientation Name,Place,Situation Language Function Ability No Deficits Noted Safety Awareness Decreased Safety Awareness Memory Description No Deficits Noted Gross Range of Motion Lower Extremity ROM Impairments L knee flexion: ~ 70 deg L knee extension: ~ 15 deg less to 0 Strength Lower Extremity Strength Assessment Left Impaired Hip 3+/5 Knee 3+/5 Sensation Assessment Sensation Gross Sensation WNL Muscle Tone Muscle Tone WNL Yes M6 PT-IP Treatment Start: 06/14/23 14:56 Freq: NEEDED Status: Active Protocol: Document 06/15/23 16:05 TS (Rec: 06/15/23 16:13 TS [id number]) Physical Therapy Treatment Education Education Provided Precautions,Safety M7 PT-IP Assessment and Plan Start: 06/14/23 14:56 Freq: NEEDED Status: Active Protocol: Document 06/15/23 16:05 TS (Rec: 06/15/23 16:13 TS [id number]) PT Summary Assessment and Plan Potential Rehabilitation Potential Good Summary Impairments Pain,ROM,Strength,Balance, Coordination,Sensation,Tone, Cognition,Bed Mobility, Transfers,Gait,Activity Tolerance Progress Towards Goals Progressing Toward Goals Assessment Summary Eugene continues to do well with his mobility. He SBA for all bed mobility with HOB elevated and no cueing. He progressed his gait to ~60'SBA with FWW and with a step to gait. He reports less pain this afternoon after receiving pain medication. PT is recommending home with assist when medically stable. Goals Bed Mobility Goal Independent Transfer Goal Independent,Front Wheeled Walker Gait Goal Independent,Front Wheel Walker Gait Distance 200 Days to Meet Goals 0 Frequency of Treatment Frequency Of Treatment Twice a Day Treatment Plan Physical Therapy Treatment Plan Bed Mobility Training,Transfer Training,Gait Training, Therapeutic Exercise,Balance Retraining,Post Op Education, Discharge Planning,Hot or Cold Pack,Neuromuscular Re-ed, Coordination Retraining,Manual Therapy Other Recommendations and Next Treatment LE exercises, ambulation Focus Weight Bearing Status Weight Bearing Status Weight Bear as Tolerated Allowed Weight Bearing Amount (enter % LLE WBAT or #) (%) Recommendations To Nursing Amount of Assist Needed Standby Assistance Discharge Recommendations PT Discharge Recommendations Home with Assistance, Outpatient PT Transportation Needs at Discharge Private Vehicle
[2023-06-15] MEDS: HYDROMORPHONE 0.5 MG INJ IV ×2 (15:18→23:59)
[2023-06-15] MEDS: HYDROMORPHONE 4 MG TABLET PO (20:02)
[2023-06-16 00:17] VITALS: BP 137/63; PULSE 85; RESP 16; TEMP 37.7; O2SAT 94
[2023-06-16] MEDS: ACETAMINOPHEN 325 MG TABLET 650 MG PO ×2 (04:15→11:24)
[2023-06-16] MEDS: HYDROMORPHONE 4 MG TABLET PO (04:16)
[2023-06-16 04:40] VITALS: BP 120/58; PULSE 83; RESP 18; TEMP 36.7; O2SAT 95
[2023-06-16 05:36] LABS: BUN Creatinine Ratio 10.6 (6-22); Blood Urea Nitrogen 23 mg/dL (9-20); Calcium 8.2 mg/dL (8.4-10.2); Carbon Dioxide 26 mmol/L (22-32); Chloride 106 mmol/L (98-107); Estimated Glomerular Filt Rate 32 mL/min (>60); Glucose 115 mg/dL (80-110); HEMOLYSIS < 15 (0-50); Potassium 4.1 mmol/L (3.4-5.1); Sodium 137 mmol/L (137-145)
[2023-06-16 05:57] LABS: Hematocrit 27.8 % (41-53); Hemoglobin 9.3 g/dL (13.5-17.5); Mean Corpuscular HGB Conc 33.6 % (30-36); Mean Corpuscular Hemoglobin 27.9 PG (26-34); Platelet Count 141 X10^3/uL (150-400); Red Blood Cell Count 3.34 X10^6/uL (4.5-5.9); Red Cell Distribution Width 15.3 % (11.6-14.8); White Blood Cell Count 14.1 X10^3/uL (4.5-11.0)
[2023-06-16 06:12] LABS: Add Manual Diff / Slide Review YES
[2023-06-16 06:18] LABS: Neutrophils Absolute Manual 8178 /uL (3000-5900); Total Cells Counted 100
[2023-06-16 06:19] LABS: RBC Morphology Normal Morphology
[2023-06-16] MEDS: OXYCODONE IR 5 MG TABLET PO ×2 (06:53→11:25)
--- NOTE | 2023-06-16 07:53 | DI.RAD.S_ITS ---
PROCEDURE: XR CHEST 1V INDICATIONS: uptrending WBC TECHNIQUE: One view of the chest was acquired. COMPARISON: None. FINDINGS: Surgical changes and devices: None. Lungs and pleura: Mildly low lung volumes. Bandlike opacity at the left lung base. No pleural effusion or pneumothorax. Mediastinum: Mediastinal contours appear normal. Heart size is normal. Bones and chest wall: No suspicious bony lesions. Overlying soft tissues appear unremarkable. IMPRESSION: Mildly low lung volumes bilaterally. Bandlike opacity at the left lung base may be secondary to atelectasis or scarring although pneumonia is not excluded. Approved by: Shaun Scott M.D. on 06/16/2023 at 8:40
[2023-06-16] MEDS: SODIUM CHLORIDE 0.9% FLUSH 10 ML IV ×4 (08:23→13:36)
[2023-06-16 08:31] LABS: Procalcitonin 0.22 ng/mL (<0.5)
[2023-06-16 09:38] VITALS: BP 121/63; PULSE 80; RESP 18; TEMP 36.6; O2SAT 98
--- NOTE | 2023-06-16 09:39 | PM.PN.1 ---
Subjective Subjective Interval history: Patient doing well today. HR stable on metoprolol with amio drip now off since last night. Can dc from medicine perspective. Exam Vital Signs (past 8 hours): - 06/16/23 04:40 06/16/23 09:38 Temperature 98.1 F 98 F Pulse Rate 83 80 Respiratory Rate 18 18 Blood Pressure 120/58 L 121/63 Pulse Oximetry 95 98 Oxygen Flow Rate 0 Oxygen Delivery Method Room Air Oxygen Flow Rate 0 Narrative Exam Narrative: GEN: no acute distress, obese, appears uncomfortable HEENT: moist mucous membranes, PERRL NECK: trachea midline, no JVD CV: regular rate and rhythm, no murmurs PULM: clear bilaterally ABD: soft, nontender, nondistended, no organomegaly EXT: L knee post-op dressing in place NEURO: awake, alert, oriented, no focal deficits Objective Labs 06/16/23 04:17 06/16/23 04:17 Labs: Laboratory Results - last 24 hr 06/16/23 04:17 WBC 14.1 H RBC 3.34 L Hgb 9.3 L Hct 27.8 L MCV 83.0 MCH 27.9 MCHC 33.6 RDW 15.3 H Plt Count 141 L Neut % (Auto) Not Reportable Lymph % (Auto) Not Reportable [place] % (Auto) Not Reportable Eos % (Auto) Not Reportable Baso % (Auto) Not Reportable Lymph # (Auto) Not Reportable [place] # (Auto) Not Reportable Baso # (Auto) Not Reportable Total Counted 100 Seg Neutrophils % 58.0 Lymphocytes % (Manual) 8.0 L Monocytes % (Manual) 34.0 H Neutrophils # (Manual) 8178 H RBC Morphology Normal morphology Sodium 137 Potassium 4.1 Chloride 106 Carbon Dioxide 26 BUN 23 H Creatinine 2.16 H Estimated GFR 32 L BUN/Creatinine Ratio 10.6 Glucose 115 H Calcium 8.2 L Procalcitonin 0.22 PFSH Medical History Stage III chronic kidney disease Former smoker Depression (~2007) Gout Prostate cancer (~2014) Asthma Numbness HLD (hyperlipidemia) HTN (hypertension) Surgical History History of total right knee replacement (11/25/19) Hx of arthroscopy of left knee Hx of knee surgery (~1968) Hx of arthroscopy of right knee (~2006) Hx of laminectomy (~2012) S/P lumbar fusion (~2009) Hx of laminectomy (~2007) Hx of tonsillectomy Hx of prostatectomy (~2014) Hx of hernia repair Status post extracapsular cataract extraction of left eye Social History household members: spouse Smoking Status: Former smoker alcohol intake: current Assessment & Plan Assessment & Plan narrative: # asymptomatic SVT, now resolved -HR 140's with EKG confirming SVT, patient asyptomatic. BP stable. -given amio drip due to hypotension with IV metop pushes -converted to NSR on 06/15 on amio drip, will finish infusion and then can downgrade from ICU status -continue metoprolol tart 25mg BID on discharge -mag, K and TSH all normal -echo ordered and reassuring, EF 55-60%, mild-mod MR, mild # post-op L total knee -management per ortho -will f/up with ortho in clinic # JARRET on CKD 3 -continue IVF -hold home lisinopril until outpatient labs document improvement # HTN -continue home HCTZ, holding home lisinopril until outpatient f/up Medicine will sign off today. Thank you for allowing us to participate in the care of this patient. Should you have any further questions, do not hesitate to speak with us directly or call us. Quality VTE Deep Vein Thrombosis/Pulmonary Embolism Present on Admission: No
--- NOTE | 2023-06-16 09:41 | PM.DS.1 ---
History of Present Illness History of Present Illness Date Patient Seen: 06/16/23 Time Patient Seen: 09:41 Chief complaint: Left TKA Narrative: 72-year-old male with left knee arthritis. Failure of conservative treatment. Admitted postoperatively after left total knee arthroplasty. History of chronic kidney disease. History of chronic pain typically takes 5 mg oxycodone 4 to 5 times a day provided by his PCP. Discharge Providers Provider Date of admission: 06/14/2023 Discharge Date: 06/16/23 Primary care physician: Donnie Huffman MD Consults: 06/14/23 06:00 Consult to Anesthesiology Routine Comment: Consulting Provider: Anesthesiologist Reason for consultation: Regional block for post operative pain control 06/14/23 10:52 Consult to Discharge Planning Routine Comment: Consult to Occupational Therapy Evaluate & Treat Comment: Physician Instructions: Evaluate and treat Consult to Physical Therapy Evaluate & Treat Comment: Physician Instructions: postop TKA protocol 06/14/23 16:23 Consult to Hospitalist Service Routine Comment: SVT on EKG HR 140's Consulting Provider: Haley Salazar Reason for consultation: SVT 06/14/23 17:03 Consult to Hospitalist Service Routine Comment: Consulting Provider: Art Klein Reason for consultation: SVT Discharge provider: aHley Salazar MD Summary Hospital Course Discharge Diagnosis: Left knee arthritis Supraventricular tachycardia Chronic kidney disease Chronic pain Hospital Course: This is a 72-year-old male status post total knee arthroplasty on the left side--he was admitted postop for pain control. Was found postoperative to go into SVT several hours after surgery on the floor. He did not have any chest pain or shortness of breath. Heart rates were in the 140s. EKG demonstrated SVT. Hospitalist team was consulted. Did not convert on IV metoprolol so was admitted to the ICU for amiodarone drip. Converted overnight on amiodarone drip. Then was transitioned to oral metoprolol. Remained in sinus rhythm after transitioned to oral metoprolol. Pain was controlled on a combination of his baseline chronic oxycodone and breakthrough oral hydromorphone. He has baseline chronic kidney disease baseline creatinine 1.8 this did elevate slightly to 2.16 in the postoperative. And efforts were made to avoid nephrotoxic medications. Blood pressures were appropriate so his lisinopril was held. The patient worked with physical therapy. Was independent in his ambulation with a walker. Was tolerating a p.o. diet. Was appropriate for discharge on 06/16/2023 Status at Discharge Cognitive/behavioral status at discharge: oriented Functional status at discharge: uses cane/walker Overall status at discharge: patient is progressing back to baseline Time Spent with Patient Time spent: Less than 30 minutes Exam Vital Signs (past 8 hours): - 06/16/23 04:40 06/16/23 09:38 Temperature 98.1 F 98 F Pulse Rate 83 80 Respiratory Rate 18 18 Blood Pressure 120/58 L 121/63 Pulse Oximetry 95 98 Oxygen Flow Rate 0 Oxygen Delivery Method Room Air Oxygen Flow Rate 0 Narrative Exam Narrative: Alert oriented no acute distress sitting in bed, trigger point in his back caused him discomfort overnight. Otherwise knee pain better controlled today. Looking forward to discharge home. HEENT normocephalic atraumatic Respirations unlabored on room air Heart regular rate and rhythm Left lower extremity was Felton wrap and Aquacel dressing in place. Felton wrap removed dressing was clean dry. Mild swelling as expected with early postoperative. Reduced range of motion consistent with recent surgery. Demonstrates active dorsiflexion plantar flexion. Calf is soft. Thigh is soft. Brisk capillary refill. Objective Labs 06/16/23 04:17 06/16/23 04:17 Labs: Laboratory Results - last 24 hr 06/16/23 04:17 WBC 14.1 H RBC 3.34 L Hgb 9.3 L Hct 27.8 L MCV 83.0 MCH 27.9 MCHC 33.6 RDW 15.3 H Plt Count 141 L Neut % (Auto) Not Reportable Lymph % (Auto) Not Reportable [place] % (Auto) Not Reportable Eos % (Auto) Not Reportable Baso % (Auto) Not Reportable Lymph # (Auto) Not Reportable [place] # (Auto) Not Reportable Baso # (Auto) Not Reportable Total Counted 100 Seg Neutrophils % 58.0 Lymphocytes % (Manual) 8.0 L Monocytes % (Manual) 34.0 H Neutrophils # (Manual) 8178 H RBC Morphology Normal morphology Sodium 137 Potassium 4.1 Chloride 106 Carbon Dioxide 26 BUN 23 H Creatinine 2.16 H Estimated GFR 32 L BUN/Creatinine Ratio 10.6 Glucose 115 H Calcium 8.2 L Procalcitonin 0.22 PFSH Medical History Stage III chronic kidney disease Former smoker Depression (~2007) Gout Prostate cancer (~2014) Asthma Numbness HLD (hyperlipidemia) HTN (hypertension) Surgical History History of total right knee replacement (06/22/19) Hx of arthroscopy of left knee Hx of knee surgery (~1968) Hx of arthroscopy of right knee (~2006) Hx of laminectomy (~2012) S/P lumbar fusion (~2009) Hx of laminectomy (~2007) Hx of tonsillectomy Hx of prostatectomy (~2014) Hx of hernia repair Status post extracapsular cataract extraction of left eye Social History household members: spouse Smoking Status: Former smoker alcohol intake: current Discharge Assessment & Plan Assessment and Plan Assessment: 1. Left knee arthritis: Status post left total knee arthroplasty postoperative day 2--mild blood loss anemia as expected postop. Vital signs stable. No transfusion indicated.--continue range of motion, weightbear as tolerated. We will start outpatient physical therapy within 1 week. Follow up in orthopedic office in 2 weeks for wound check. 2. leukocytosis consistent with inflammation response, consistent with recent surgery. patient is afebrile. 3. Chronic kidney disease Mild elevation from baseline creatinine 1.8-2.16. We will avoid nephrotoxic medications. We will hold lisinopril/ hctz combination medication and recheck labs (renal panel) in 2 weeks postop to consider restarting this. 4. SVT. Converted after amiodarone drip. And then transitioned to metoprolol 25 mg b.i.d.. Outpatient prescription provided for this. Discharge Plan Discharge Plan Patient Disposition: Home Discharge orders & Medications Discharge Orders: Discharge (Order); Ordered 06/16/23 Ordered By: Haley Salazar Prescriptions: New gabapentin [Neurontin] 300 mg capsule 300 mg PO TID Qty: 30 1RF cyclobenzaprine 10 mg tablet 10 mg PO TID PRN (Reason: muscle spasm) Qty: 30 0RF hydromorphone 2 mg tablet 2 mg PO Q4H PRN (Reason: pain) Qty: 20 0RF Rx Instructions: Postop exempt ondansetron 4 mg tablet,disintegrating 4 mg PO Q8H PRN (Reason: nausea and vomiting) Qty: 5 1RF aspirin 81 mg tablet,delayed release (DR/EC) 81 mg PO BID Qty: 60 0RF metoprolol tartrate 25 mg Tablet 25 mg PO BID Qty: 60 0RF Continued atorvastatin 40 mg Tablet 40 mg PO DAILY allopurinol 100 mg Tablet 300 mg PO DAILY cyclobenzaprine 10 mg Tablet 10 mg PO TID PRN (Reason: Spasms) oxycodone 5 mg Tablet 5 mg PO 5XD magnesium oxide 400 mg magnesium Tablet 400 mg PO DAILY potassium gluconate 99 mg PO DAILY Discontinued lisinopril-hydrochlorothiazide 20-25 mg Tablet 1 tab PO DAILY Follow up/Referrals: Donnie Huffman MD [Primary Care Provider] - Haley Salazar MD [Physician] - Diet/Activity/Treatments Diet: Diet as Tolerated Activity: Weightbear as tolerated left lower extremity, knee range of motion encouraged. Work on full flexion and extension Other treatments: Dressing/Wound care: -Remove the Felton wrap 48 hours after surgery. -Keep Aquacel dressing in place until postoperative follow-up office visit. -you may see some drainage on the bandage, this is ok. If it is leaking or saturated, then the dressing can be changed to clean gauze or a clean surgical dressing from a pharmacy or reinforced with additional gauze and paper tape or dressings over the top. Otherwise, just keep dressing in place until follow up. -Okay to shower. Keep wound out of direct water stream. No soaking or submerging until all the scabs fall off (approximately 6 weeks). -Please call the office if dressing becomes significantly wet, soiled, or saturated. Activities: -Weight-bearing as tolerated. Use front wheeled walker, and progress to cane when safe. -Continue with home exercises as directed by your physical therapist. -Elevate ?toes above the nose if you have significant swelling in your lower leg. (A wedge pillow is easiest.) -Ice your incision as needed for pain/inflammation/swelling. Protect your skin with a folded pillowcase. Follow-up: -Follow-up with your surgeon or PA in the office in 10-14 days after surgery. -Follow-up with your surgeon 6 weeks postoperatively. Call the office if you have chest pain, shortness of breath, significant swelling that will not resolve with elevating, fever over 101?, significantly worsening pain. [facility]: [phone] You have been discharged with medications. These have already been sent to your pharmacy. Pain include pain medications: Oxycodone --you are on a pain contract with your primary care doctor who was prescribing you oxycodone already. As discussed in clinic your primary care agreed to provide pain narcotic prescription. Please contact your narcotic prescribing doctor for additional medication. When patients around pain contract pharmacy will not fill narcotic prescriptions from multiple physicians. Take the smallest dose necessary. Small prescription for hydromorphone for breakthrough pain will be provided but some pharmacies will not fill prescriptions when you have a pain contract with another physician. Narcotic medication can make you feel constipated. You can get [id number]-[id number] stool softener such as docusate sodium-Colace/senna or MiraLax at a pharmacy to help with this. You also have prescriptions for gabapentin 300 mg take this 3 times a day for least the 1st 10 days after surgery to help with pain control. And acetaminophen (Tylenol) take 500-1000 mg 3 times a day for pain control. You also have a prescription for Zofran (ondansetron) this is a strong anti nausea medication that can be taken up to every 8 hours as needed for nausea You will have a prescription for hydroxyzine pamoate (Vistaril) which also helps with spasms and nausea. Prescription for cyclobenzaprine 10 mg can be taken up to 3 times a day which helps with spasms has also been provided. Additionally will take a baby aspirin 81 mg twice a day (morning and night) to help prevent blood clots Avoid anti-inflammatories due to your chronic kidney disease. You have a new prescription for metoprolol 25 mg b.i.d.. This is to help your heart rate. We have temporarily discontinued your lisinopril hydrochlorothiazide combination pill--this is to help your kidneys. We will order labs 2 weeks postop to check your renal function again (or this can be checked with your primary care doctor) and then if it is appropriate you would restart this medication Skin/Wound/Dressing Care Report to your healthcare provider any signs of infection, such as:: chills, fever, night sweats, increased pain, unusual drainage and unusual redness Visit Report/Discharge Packet Instructions: DI for Knee Replacement, DI for Prescription Opioid Use Stand Alone Forms: Patient Portal/API Discharge Data Primary Care Provider: Donnie Huffman Attending Provider: Haley Salazar VTE Deep Vein Thrombosis/Pulmonary Embolism Present on Admission: No
[2023-06-16] MEDS: ATORVASTATIN 20 MG TABLET 40 MG PO (09:52)
[2023-06-16] MEDS: allopurinoL 100 MG TABLET 150 MG PO (09:53)
[2023-06-16] MEDS: MAGNESIUM OXIDE 400 MG TABLET PO (09:53)
[2023-06-16] MEDS: METOPROLOL IR 25 MG TABLET PO (09:53)
[2023-06-16] MEDS: DOCUSATE 100 MG CAPSULE PO (09:53)
[2023-06-16] MEDS: ASPIRIN EC 81 MG TABLET PO (09:53)
[2023-06-16 13:13] LABS: Appearance Urine UA CLEAR; Bilirubin Urine UA NEGATIVE (NEGATIVE); Color Urine UA YELLOW; Glucose Urine UA NEGATIVE (Negative); Ketones Urine UA NEGATIVE (NEGATIVE); Leukocyte Esterase Urine UA NEGATIVE (NEGATIVE); Nitrite Urine UA NEGATIVE (Negative); Occult Blood Urine UA NEGATIVE (Negative); Protein Urine UA NEGATIVE (Negative); Specific Gravity Urine UA 1.015 (1.000-1.035); Urobilinogen Urine UA 0.2 E.U./dL (0.2)
[2023-06-16 13:24] LABS: Bacteria Urine None Seen; Culture Indicated Urine Cult Not Indicated; RBC Urine None Seen (0-5/HPF); WBC Urine None Seen (0-5/HPF)
[2023-06-16 13:25] LABS: Squamous Epithelial Cell Urine None Seen (0-5/HPF)
[2023-06-16] MEDS: HYDROMORPHONE 0.5 MG INJ IV (13:36)
== END 2023-06-16 15:12 | disposition home or self-care (01) | DRG 470 ==
LOC: OR 06:29 → AC 06:33 → ICU 06-15 11:11 → OR 06-17 06:40
PROVIDERS: Student in an Organized Health Care Education/Training Program; Family Provider Family Medicine; PCP Family Medicine; Referring Provider Orthopaedic Surgery Foot and Ankle Surgery; Visit Provider Orthopaedic Surgery Foot and Ankle Surgery
PROC: 0SRD0JZ Replacement of Left Knee Joint with Synthetic Substitute, Open Approach (ICD-10-PCS; CPT 27447; principal; 2023-06-14 07:45)
DX: M17.12 Unilateral primary osteoarthritis, left knee (principal); I47.10 Supraventricular tachycardia, unspecified; E66.01 Morbid (severe) obesity due to excess calories; I12.9 Hypertensive chronic kidney disease with stage 1 through stage 4 chronic kidney disease, or unspecified chronic kidney disease; N18.30 Chronic kidney disease, stage 3 unspecified; E78.5 Hyperlipidemia, unspecified; M10.9 Gout, unspecified; Z87.891 Personal history of nicotine dependence; Z68.41 Body mass index [BMI] 40.0-44.9, adult; G89.18 Other acute postprocedural pain; M25.762 Osteophyte, left knee
CPT/HCPCS: 27447; 36415; 64450; 71045; 73560; 80048; 80053; 81001; 83735; 84145; 84443; 85007; 85025; 87797; 93005; 93010; 93306; 97116; 97162; 97530; C1776; C9290; J0171; J0282; J0690; J1100; J1170; J1885; J2405; J2704